=== PATIENT | male | born 1950 | race Caucasian/White ===

== ENCOUNTER 2016-10-19 15:18 | Inpatient (IN) | payer OTHER, MEDICAID ==
[~2016-10-19] VITALS: Ht 177.8 cm; Wt 129.4 kg
--- NOTE | ~2016-10-19 | CON ---
[place], [place] REPORT OF CONSULTATION NAME: [facility]ARTMAN [id number] UNIT #: [id number] ROOM: 403 DOCTOR: ELYSE ROSAS MD BIRTHDATE: [birth year] DOS: 10/20/2016 NEPHROLOGY CONSULTATION REASON FOR CONSULTATION: The patient known to you/chronic kidney disease. HISTORY OF PRESENT ILLNESS: This patient is a 66-year-old male with past medical history of stage 4 chronic kidney disease, coronary artery disease with history of CABG, anemia, diabetes and hypertension. Apparently, he was admitted to the hospital due to his worsening anemia without any mikel bleeding. He denies any history of chest pain, nausea, vomiting or dark stools. His hemoglobin levels have been in the upper 7s-8 range. The patient has known chronic kidney disease and follows with my partner, Dr. Frank, in the office. He reports just having an AV fistula created in his upper extremity a few weeks ago. His baseline creatinine levels have been in the upper 2s-3 range. The patient has had issues with anemia and had seen a infusion nurse in the past. I do not know the details. It seems he had been on Aranesp as well as IV iron, but this was not covered by his insurance as an outpatient and he has not received this in a while. I do not know the details. He currently feels comfortable. He was asking if he was going to receive blood transfusion. I stated that I was not clear. He denied any specific complaints to me. He denied dysuria, hematuria, nausea or vomiting. He states his incision of his fistula seems to be healing well and denies any issues with the fistula in general. ALLERGIES: LISTED TO ATORVASTATIN, GABAPENTIN. HOME MEDICATIONS: Include albuterol, allopurinol, Elavil, Creon, Bumex, carvedilol, vitamin D, colchicine, doxazosin, fenofibrate, iron sulfate, insulin, magnesium, metolazone, potassium, Crestor, Flomax, Spiriva, Coenzyme Q10, vitamin B and Coumadin. PAST MEDICAL HISTORY: 1. Known chronic kidney disease with details as stated above. 2. Recent right upper extremity AV fistula. 3. Coronary artery disease, status post CABG. 4. CHF. 5. Chronic atrial fibrillation. 6. Diabetes with nephropathy and neuropathy. 7. GERD. 8. Gout. 9. Hyperlipidemia. 10. Hypertension. 11. Morbid obesity. 12. History of EGD. 13. Hemorrhoidectomy. 14. Anemia. 15. History of aortic valve replacement. 16. Tonsillectomy and adenoidectomy. 17. Cholecystectomy. [place], [place] REPORT OF CONSULTATION NAME: BRENDAN HARTMAN UNIT #: [id number] ROOM: 403 DOCTOR: ELYSE ROSAS MD BIRTHDATE: [birth year] 18. Colonoscopy with polypectomy. 19. Chronic edema. FAMILY HISTORY: From what I can gather, there was no reported history of chronic kidney disease, otherwise noncontributory. SOCIAL HISTORY: Occasional alcohol was noted. There is previous history of tobacco abuse, but quit in 1988. No history of illicit drugs. He is . REVIEW OF SYSTEMS: As per HPI, otherwise a 10-point review of systems was reviewed and was negative. PHYSICAL EXAMINATION: VITAL SIGNS: Temperature 97.9, pulse 64, respiratory rate 18, blood pressure 171/84. GENERAL: He is awake, alert, resting comfortably, in no acute distress. HEENT: Shows no jugular venous distention. Sclerae are anicteric. Mucous membranes are moist. Pharynx is clear. NECK: Supple. Trachea is midline. There is no neck lymphadenopathy. There is no thyromegaly. LUNGS: Fairly clear. No crackles, wheezing or rales. There is no tactile fremitus. He is not using accessory muscles of respiration. HEART: Normal S1, S2. No rub, thrill or gallop. ABDOMEN: Obese, soft, nontender. There is no organomegaly or rigidity. There is no rebound or guarding. There is no CVA tenderness. EXTREMITIES: Has 1 to 2+ edema. There is no lower extremity lymphadenopathy. Distal pulses are 2+. SKIN: Showed no overt rash. There are no petechiae or purpura. Skin temperature was warm. NEUROLOGIC: He is awake, alert. He is following commands. Cranial nerves were intact. DIAGNOSTIC DATA: BUN 58, creatinine 2.9, sodium 140, potassium 3.8, CO2 of 28, calcium 8.2, phosphorus 3.8, magnesium 2.6, hemoglobin 7.7, white count of 5.8, platelet count of 166. IMPRESSION: 1. Stage 4 chronic kidney disease with a baseline creatinine in the upper 2s-3 range. The patient's renal function is stable and at baseline. He likely has underlying nephrosclerosis and diabetic nephropathy. 2. Anemia, likely of chronic disease. 3. Diabetes mellitus. 4. Hypertension. 5. History of congestive heart failure, chronic edema. 6. Coronary artery disease. PLAN: 1. The patient's home medications should continue. He should continue his normal diuretics and electrolyte replacement. 2. Dose medications for current creatinine clearance. [place], [place] REPORT OF CONSULTATION NAME: BRENDAN HARTMAN UNIT #: [id number] ROOM: 403 DOCTOR: ELYSE ROSAS MD BIRTHDATE: [birth year] 3. Continue to follow labs while in the hospital. 4. In regards to his anemia, transfusions can be made as per the primary service. He should receive a dose of IV diuretics in between blood transfusions. 5. The patient should be on erythropoietin stimulating agents, particularly as an outpatient. Apparently, there had been some insurance coverage issues with the details unclear to me. While he is in the hospital, I will write for one dose of Procrit to be given today. On discharge, he should continue his normal follow up with Dr. Frank as previously scheduled. Thank you for this consultation. ELYSE ROSAS MD CM:CONSTR:REPORT OF CONSULTATION 1411 10/22/16 0950 interface
[~2016-10-19 15:18] MED LIST: ALLOPURINOL100 MG PO; AMARYL4 MG PO; AMITRIPTYLINE10 MG PO; ASPIRIN81 M1 PO; AUGMENTIN 875 M1 TAB PO; B COMPLEX1 EACH PO; BUMETANIDE1 MG PO; BUMETANIDE2 MG PO; BUMEX1 MG PO; CARDOXIN0.25 MG PO; CARDURA2 M1 PO; CARVEDILOL25 MG PO; CO Q-10 ER100 MG PO; COLACE100 MG PO; COLCHICINE0.6 M1 PO; COLCRYS0.6 M1 PO; COREG12.5 MG PO; COUMADIN2 MG PO; COUMADIN3 M1 PO; COUMADIN5 M2 PO; COUMADIN7.5 M1 PO; CREON 60,000U/1 CAP PO; CRESTOR10 M1 PO; CRESTOR40 M1 PO; CYCLOBENZAPRINE10 MG PO; Coumadin5 MG PO; D3-20002000 UNIT PO; FENOFIBRATE145 M1 PO; FENOFIBRATE160 MG PO; FEOSOL300 MG PO; FERROUS SULFAT325 MG PO; FLOMAX0.4 MG PO; FUROSEMIDE40 MG PO; FUROSEMIDE80 MG PO; GABAPENTIN300 M1 PO; GEMCOR600 MG PO; GEMFIBROZIL600 MG PO; GLIMEPIRIDE4 MG PO; HUMALOG100 U/ML SC; HUMALOG100 UNIT/1 SQ; INSULIN-HUMA100 U/ML SC; K-Dur 20MEQ20 MEQ PO; KEFLEX500 MG PO; KLOR-CON 1010 MEQ PO; LANOXIN0.125 MG PO; LANOXIN0.25 MG PO; LANTUS100 U/ML SC; LASIX40 MG PO; LASIX80 MG PO; LEVEMIR FLEX100 U/ML SC; LEVEMIR100 U/ML SC; LISINOPRIL20 MG PO; Lasix80 MG PO; MAGOX 400400 MG PO; METFORMIN500 MG PO; METOCLOPRAMIDE H5 M1 PO; METOLAZONE2.5 MG PO; METOLAZONE5 MG PO; MILK OF MA400 MG/5 M PO; MULTIPLE VITAMI1 CAP PO; MULTIPLE VITAMI1 TA3 PO; NAPROSYN500 MG PO; NORCO 325 MG-51 TAB PO; NORCO 5-325 TA1 EACH PO; NOVOLOG MIX 70/33 ML SQ; NOVOLOG10 ML SQ; OMEGA 3 FISH O1 EACH PO; OMEPRAZOLE DR20 M1 PO; OMEPRAZOLE DR20 MG PO; OXYCODONE5 M1 PO; PARAFON FORTE500 MG PO; PERCOCET 325 MG1 TA2 PO; POLY VI SOL,MUL50 ML PO; POTASSIUM CHLO10 MEQ PO; POTASSIUM CHLOR8 ME1 PO; PRILOSEC20 M1 PO; PRILOSEC20 MG PO; PROVENTIL0.09 MG/A1 INH; Percocet 325 MG1 TAB PO; SIMVASTATIN40 MG PO; SPIRIVA RESPIMAT4 GM IH; SPIRIVA18 MCG PO; TYLENOL325 M1 PO; VITAMIN D22000 UNIT PO; VITAMIN D50000 I3 PO; WARFARIN SOD5 MG PO; WARFARIN SODIUM5 MG PO; ZAROXOLYN2.5 MG PO; ZOCOR40 MG PO; Zaroxolyn,Diul2.5 MG PO; [UNRECOGNIZED DRUG - OTHER] PO
[2016-10-19 15:28] LABS: BILIRUBIN NEGATIVE (NEGATIVE); BLOOD 2+ (NEGATIVE); CLARITY SL CLOUDY (CLEAR); COLOR YELLOW (YELLOW); GLUCOSE TRACE (NEGATIVE); KETONE NEGATIVE (NEGATIVE); LEUKO ESTERASE NEGATIVE (NEGATIVE); NITRITE NEGATIVE (NEGATIVE); PROTEIN 3+ (NEGATIVE); UROBILINOGEN 0.2 E.U./dl (0.2-1.0)
[2016-10-19 15:29] LABS: BASO % 0.5 % (0.0-1.0); EOS # 0.1 10*3/uL (0.0-0.4); HEMATOCRIT 26.1 % (42.0-52.0); HEMOGLOBIN 7.9 g/dl (14.0-18.0); LYMPH # 0.4 10*3/uL (1.3-4.4); LYMPH % 5.8 % (27.0-41.0); MEAN CORPUSCULAR HGB 27.2 pg (27.0-31.0); MEAN CORPUSCULAR HGB CONC 30.3 g/dl (33.0-37.0); MEAN PLATELET VOLUME 9.1 fl (9.6-12.3); MONO # 0.7 10*3/uL (0.1-1.0); MONO % 10.7 % (3.0-9.0); NEUT # 5.1 10*3/uL (2.3-7.9); NEUT % 81.4 % (47.0-73.0); PLATELET COUNT AUTOMATED 187 10*3/uL (130-400); RED CELL DISTRI WIDTH 18.2 % (0-14.5); WHITE BLOOD COUNT 6.3 10*3/uL (4.8-10.8)
[2016-10-19 15:43] LABS: URINE TP/CRE RATIO 3.1 (<0.21)
[2016-10-19 15:50] LABS: MUCOUS 1+; URINE REFLEX COMMENT YES (NO); WBC 0-2 wbc/hpf (0-5)
[2016-10-19 15:55] LABS: ALBUMIN 2.8 gm/dl (3.1-4.5); MAGNESIUM 2.8 mg/dL (1.5-2.1); PHOSPHOROUS 3.3 mg/dL (2.5-4.9); POTASSIUM 4.5 mmol/L (3.5-5.1)
[2016-10-19 16:00] LABS: URIC ACID 8.5 mg/dL (3.5-7.2)
[2016-10-19 16:19] LABS: IRF 28.5 % (2.4-13.3); RET-He 28.2 pg (32.1-37.9); RETICULOCYTE % 3.26 % (0.50-2.50)
[2016-10-19 16:29] LABS: IRON 42 ug/dL (65-175); IRON SATURATION 10 %; UIBC 342 ug/dL (110-410)
[2016-10-19 16:58] LABS: FERRITIN 356.8 ng/mL (22.0-322.0)
[2016-10-19 17:07] LABS: FOLIC ACID > 24.00 ng/mL (>5.38)
[2016-10-19 18:24] LABS: CKMB 2.3 ng/ml (0.5-3.6); TROPONIN I 0.029 ng/ml (<0.045)
[2016-10-19 18:24] LABS: INTERNATIONAL NORM RATIO 2.6 (2.0-3.5); PROTHROMBIN TIME 29.6 SECONDS (9.0-12.4)
[2016-10-20 00:41] LABS: HEMATOCRIT 28.1 % (42.0-52.0); HEMOGLOBIN 8.7 g/dl (14.0-18.0)
[2016-10-20 00:59] LABS: CKMB 2.5 ng/ml (0.5-3.6); TROPONIN I 0.026 ng/ml (<0.045)
[2016-10-20 06:03] LABS: BASO % 0.7 % (0.0-1.0); EOS # 0.1 10*3/uL (0.0-0.4); EOS % 2.2 % (1.0-4.0); HEMATOCRIT 25.3 % (42.0-52.0); HEMOGLOBIN 7.7 g/dl (14.0-18.0); IG # 0.1 10*3/uL (0.0-0.1); LYMPH # 0.5 10*3/uL (1.3-4.4); LYMPH % 9.1 % (27.0-41.0); MEAN CELL VOLUME 87.8 fl (80.0-94.0); MEAN CORPUSCULAR HGB 26.7 pg (27.0-31.0); MEAN CORPUSCULAR HGB CONC 30.4 g/dl (33.0-37.0); MEAN PLATELET VOLUME 9.5 fl (9.6-12.3); MONO # 0.8 10*3/uL (0.1-1.0); MONO % 13.8 % (3.0-9.0); NEUT # 4.3 10*3/uL (2.3-7.9); NEUT % 73.3 % (47.0-73.0); PLATELET COUNT AUTOMATED 166 10*3/uL (130-400); RED BLOOD COUNT 2.88 10*6/uL (4.50-5.90); RED CELL DISTRI WIDTH 18.6 % (0-14.5); WHITE BLOOD COUNT 5.8 10*3/uL (4.8-10.8)
[2016-10-20 06:13] LABS: CKMB 2.6 ng/ml (0.5-3.6); TROPONIN I 0.024 ng/ml (<0.045)
[2016-10-20 06:29] LABS: ALBUMIN 2.4 gm/dl (3.1-4.5); BILIRUBIN, TOTAL 0.3 mg/dl (0.2-1.0); FREE T4 1.03 ng/dl (0.76-1.46); MAGNESIUM 2.6 mg/dL (1.5-2.1); PHOSPHOROUS 3.8 mg/dL (2.5-4.9); POTASSIUM 3.8 mmol/L (3.5-5.1); TOTAL PROTEIN 6.9 gm/dL (6.4-8.2)
[2016-10-20 06:33] LABS: INTERNATIONAL NORM RATIO 2.2 (2.0-3.5); PROTHROMBIN TIME 24.8 SECONDS (9.0-12.4)
[2016-10-20 06:34] LABS: THYROID STIM HORMONE (HS) 3.51 uIU/ml (0.358-4.75)
[2016-10-20 06:51] LABS: VITAMIN D, 25-HYDROXY 23.4 ng/mL (30-100)
[2016-10-20 06:52] LABS: FOLIC ACID > 24.00 ng/mL (>5.38)
[2016-10-21 06:14] LABS: BASO % 0.5 % (0.0-1.0); EOS # 0.1 10*3/uL (0.0-0.4); EOS % 2.5 % (1.0-4.0); HEMATOCRIT 29.2 % (42.0-52.0); HEMOGLOBIN 8.9 g/dl (14.0-18.0); IG # 0.1 10*3/uL (0.0-0.1); LYMPH # 0.4 10*3/uL (1.3-4.4); LYMPH % 7.7 % (27.0-41.0); MEAN CELL VOLUME 86.6 fl (80.0-94.0); MEAN CORPUSCULAR HGB 26.4 pg (27.0-31.0); MEAN CORPUSCULAR HGB CONC 30.5 g/dl (33.0-37.0); MEAN PLATELET VOLUME 9.9 fl (9.6-12.3); MONO # 0.7 10*3/uL (0.1-1.0); MONO % 12.5 % (3.0-9.0); NEUT # 4.2 10*3/uL (2.3-7.9); NEUT % 75.5 % (47.0-73.0); PLATELET COUNT AUTOMATED 182 10*3/uL (130-400); RED BLOOD COUNT 3.37 10*6/uL (4.50-5.90); RED CELL DISTRI WIDTH 18.1 % (0-14.5); WHITE BLOOD COUNT 5.6 10*3/uL (4.8-10.8)
[2016-10-21 06:39] LABS: PROTHROMBIN TIME 21.9 SECONDS (9.0-12.4)
[2016-10-21 06:40] LABS: POTASSIUM 3.7 mmol/L (3.5-5.1)
== END 2016-10-21 13:47 | disposition home or self-care (01) | DRG 682 ==
LOC: EDSTATUS 15:18 → ED 15:19 → EDHOLD 16:40 → 4E 16:40
PROVIDERS: Emergency Medicine; Hospitalist; Internal Medicine; Internal Medicine Nephrology
PROC: 30233N1 Transfusion of Nonautologous Red Blood Cells into Peripheral Vein, Percutaneous Approach (ICD-10-PCS; principal; 2016-10-19)
DX: N17.0 Acute kidney failure with tubular necrosis (principal); E43 Unspecified severe protein-calorie malnutrition; D68.59 Other primary thrombophilia; E11.22 Type 2 diabetes mellitus with diabetic chronic kidney disease; E11.42 Type 2 diabetes mellitus with diabetic polyneuropathy; I50.9 Heart failure, unspecified; I13.0 Hypertensive heart and chronic kidney disease with heart failure and stage 1 through stage 4 chronic kidney disease, or unspecified chronic kidney disease; I25.810 Atherosclerosis of coronary artery bypass graft(s) without angina pectoris; Z68.41 Body mass index [BMI] 40.0-44.9, adult; D50.0 Iron deficiency anemia secondary to blood loss (chronic); N18.4 Chronic kidney disease, stage 4 (severe); E83.41 Hypermagnesemia; E66.01 Morbid (severe) obesity due to excess calories; N40.0 Benign prostatic hyperplasia without lower urinary tract symptoms; K21.9 Gastro-esophageal reflux disease without esophagitis; E11.65 Type 2 diabetes mellitus with hyperglycemia; E78.5 Hyperlipidemia, unspecified; D63.8 Anemia in other chronic diseases classified elsewhere; R00.1 Bradycardia, unspecified; Z90.49 Acquired absence of other specified parts of digestive tract; Z87.891 Personal history of nicotine dependence; Z80.42 Family history of malignant neoplasm of prostate; Z79.01 Long term (current) use of anticoagulants; Z82.49 Family history of ischemic heart disease and other diseases of the circulatory system; Z84.89 Family history of other specified conditions; Z88.8 Allergy status to other drugs, medicaments and biological substances; Z91.048 Other nonmedicinal substance allergy status; Z79.51 Long term (current) use of inhaled steroids; Z79.899 Other long term (current) drug therapy; Z79.4 Long term (current) use of insulin; Z95.1 Presence of aortocoronary bypass graft; Z95.2 Presence of prosthetic heart valve

== ENCOUNTER 2016-11-20 13:56 | Inpatient (IN) | payer OTHER, MEDICAID ==
[~2016-11-20] VITALS: Ht 177.8 cm; Wt 129.3 kg
[2016-11-20] VITALS (9 sets, daily range): BP systolic 127–157; BP diastolic 47–62
[2016-11-20 15:26] LABS: BASO % 0.3 % (0.0-1.0); EOS # 0.1 10*3/uL (0.0-0.4); EOS % 1.2 % (1.0-4.0); HEMATOCRIT 23.9 % (42.0-52.0); HEMOGLOBIN 7.3 g/dl (14.0-18.0); IG # 0.1 10*3/uL (0.0-0.1); LYMPH # 0.3 10*3/uL (1.3-4.4); LYMPH % 4.9 % (27.0-41.0); MEAN CELL VOLUME 90.2 fl (80.0-94.0); MEAN CORPUSCULAR HGB 27.5 pg (27.0-31.0); MEAN CORPUSCULAR HGB CONC 30.5 g/dl (33.0-37.0); MEAN PLATELET VOLUME 9.4 fl (9.6-12.3); MONO # 0.7 10*3/uL (0.1-1.0); MONO % 9.7 % (3.0-9.0); NEUT # 5.7 10*3/uL (2.3-7.9); NEUT % 82.4 % (47.0-73.0); PLATELET COUNT AUTOMATED 175 10*3/uL (130-400); RED BLOOD COUNT 2.65 10*6/uL (4.50-5.90); RED CELL DISTRI WIDTH 18.3 % (0-14.5); WHITE BLOOD COUNT 6.9 10*3/uL (4.8-10.8)
[2016-11-20 15:40] LABS: ALBUMIN 2.6 gm/dl (3.1-4.5); BILIRUBIN, TOTAL 0.4 mg/dl (0.2-1.0); POTASSIUM 4.8 mmol/L (3.5-5.1); TOTAL PROTEIN 7.5 gm/dL (6.4-8.2)
[2016-11-20 16:06] LABS: INTERNATIONAL NORM RATIO 1.7 (2.0-3.5); PROTHROMBIN TIME 18.6 SECONDS (9.0-12.4)
[2016-11-20] MEDS ORDERED: COUMADIN4 M2 PO (22:51)
[2016-11-20] MEDS ORDERED: Coumadin3 MG PO (22:51)
[2016-11-21] VITALS: BP 153/57
[2016-11-21 01:55] VITALS: BP 128/48
[2016-11-21 06:40] LABS: BASO % 0.4 % (0.0-1.0); EOS # 0.1 10*3/uL (0.0-0.4); EOS % 1.6 % (1.0-4.0); IG # 0.1 10*3/uL (0.0-0.1); LYMPH # 0.4 10*3/uL (1.3-4.4); LYMPH % 5.8 % (27.0-41.0); MEAN CELL VOLUME 88.4 fl (80.0-94.0); MEAN CORPUSCULAR HGB 27.2 pg (27.0-31.0); MEAN CORPUSCULAR HGB CONC 30.8 g/dl (33.0-37.0); MEAN PLATELET VOLUME 9.8 fl (9.6-12.3); MONO # 0.9 10*3/uL (0.1-1.0); MONO % 12.7 % (3.0-9.0); NEUT # 5.3 10*3/uL (2.3-7.9); NEUT % 78.5 % (47.0-73.0); PLATELET COUNT AUTOMATED 165 10*3/uL (130-400); RED BLOOD COUNT 2.94 10*6/uL (4.50-5.90); RED CELL DISTRI WIDTH 18.7 % (0-14.5); WHITE BLOOD COUNT 6.7 10*3/uL (4.8-10.8)
[2016-11-21 07:06] LABS: MAGNESIUM 2.6 mg/dL (1.5-2.1); PHOSPHOROUS 3.9 mg/dL (2.5-4.9); POTASSIUM 3.9 mmol/L (3.5-5.1)
[2016-11-21 07:07] LABS: INTERNATIONAL NORM RATIO 1.7 (2.0-3.5); PROTHROMBIN TIME 18.7 SECONDS (9.0-12.4)
[2016-11-21 08:00] VITALS: BP 142/62
[2016-11-21 12:00] VITALS: BP 140/68
== END 2016-11-21 14:44 | disposition home or self-care (01) | DRG 291 ==
LOC: ED 13:56 → 4E 17:33 → EDHOLD 17:33 → 4E 17:50
PROVIDERS: Internal Medicine; Registered Nurse
PROC: 30233N1 Transfusion of Nonautologous Red Blood Cells into Peripheral Vein, Percutaneous Approach (ICD-10-PCS; principal; 2016-11-20)
DX: I13.0 Hypertensive heart and chronic kidney disease with heart failure and stage 1 through stage 4 chronic kidney disease, or unspecified chronic kidney disease (principal); N17.0 Acute kidney failure with tubular necrosis; E43 Unspecified severe protein-calorie malnutrition; I48.2 Chronic atrial fibrillation; E11.22 Type 2 diabetes mellitus with diabetic chronic kidney disease; E11.40 Type 2 diabetes mellitus with diabetic neuropathy, unspecified; Z95.4 Presence of other heart-valve replacement; I50.32 Chronic diastolic (congestive) heart failure; Z68.41 Body mass index [BMI] 40.0-44.9, adult; D63.8 Anemia in other chronic diseases classified elsewhere; N18.9 Chronic kidney disease, unspecified; E78.5 Hyperlipidemia, unspecified; I25.10 Atherosclerotic heart disease of native coronary artery without angina pectoris; E11.65 Type 2 diabetes mellitus with hyperglycemia; N40.0 Benign prostatic hyperplasia without lower urinary tract symptoms; K21.9 Gastro-esophageal reflux disease without esophagitis; E66.01 Morbid (severe) obesity due to excess calories; M10.9 Gout, unspecified; Z90.49 Acquired absence of other specified parts of digestive tract; Z87.891 Personal history of nicotine dependence; Z80.42 Family history of malignant neoplasm of prostate; Z82.49 Family history of ischemic heart disease and other diseases of the circulatory system; Z84.89 Family history of other specified conditions; Z91.048 Other nonmedicinal substance allergy status; Z88.8 Allergy status to other drugs, medicaments and biological substances; Z79.899 Other long term (current) drug therapy; Z79.4 Long term (current) use of insulin

== ENCOUNTER → 2016-11-29 | Outpatient (CLI) | payer OTHER, MEDICAID ==
[~2016-11-29] MED LIST changes: +COUMADIN4 M2 PO; +Coumadin3 MG PO
[2016-11-29 15:18] LABS: BASO % 0.6 % (0.0-1.0); BILIRUBIN NEGATIVE (NEGATIVE); BLOOD 1+ (NEGATIVE); CLARITY CLEAR (CLEAR); COLOR YELLOW (YELLOW); EOS # 0.1 10*3/uL (0.0-0.4); EOS % 1.5 % (1.0-4.0); GLUCOSE TRACE (NEGATIVE); HEMATOCRIT 28.7 % (42.0-52.0); HEMOGLOBIN 8.5 g/dl (14.0-18.0); IG # 0.1 10*3/uL (0.0-0.1); KETONE NEGATIVE (NEGATIVE); LEUKO ESTERASE NEGATIVE (NEGATIVE); LYMPH # 0.4 10*3/uL (1.3-4.4); LYMPH % 8.4 % (27.0-41.0); MEAN CELL VOLUME 89.1 fl (80.0-94.0); MEAN CORPUSCULAR HGB 26.4 pg (27.0-31.0); MEAN CORPUSCULAR HGB CONC 29.6 g/dl (33.0-37.0); MEAN PLATELET VOLUME 9.4 fl (9.6-12.3); MONO # 0.7 10*3/uL (0.1-1.0); MONO % 13.4 % (3.0-9.0); NEUT # 3.9 10*3/uL (2.3-7.9); NEUT % 74.8 % (47.0-73.0); NITRITE NEGATIVE (NEGATIVE); PH 5.5 (5.0-9.0); PLATELET COUNT AUTOMATED 175 10*3/uL (130-400); PROTEIN 2+ (NEGATIVE); RED BLOOD COUNT 3.22 10*6/uL (4.50-5.90); RED CELL DISTRI WIDTH 18.2 % (0-14.5); SPECIFIC GRAVITY 1.015 (1.005-1.030); UROBILINOGEN 0.2 E.U./dl (0.2-1.0); WHITE BLOOD COUNT 5.2 10*3/uL (4.8-10.8)
[2016-11-29 15:26] LABS: URINE TP/CRE RATIO 4.1 (<0.21)
[2016-11-29 15:41] LABS: BACTERIA 2+; URINE REFLEX COMMENT YES (NO)
[2016-11-29 15:42] LABS: ALBUMIN 2.8 gm/dl (3.1-4.5); MAGNESIUM 2.7 mg/dL (1.5-2.1); POTASSIUM 4.5 mmol/L (3.5-5.1); URIC ACID 9.3 mg/dL (3.5-7.2)
== END | disposition home or self-care (01) ==
LOC: LAB 14:40
PROVIDERS: Internal Medicine Nephrology
DX: N18.4 Chronic kidney disease, stage 4 (severe) (principal); D63.1 Anemia in chronic kidney disease; Z79.899 Other long term (current) drug therapy

== ENCOUNTER 2016-12-11 14:14 | Inpatient (IN) | payer OTHER, MEDICAID ==
[2016-12-11] VITALS (12 sets, daily range): BP systolic 125–160; BP diastolic 45–81
[~2016-12-11] VITALS: Ht 177.8 cm; Wt 129.4 kg
--- NOTE | ~2016-12-11 | EKG ---
[place], [place] ELECTROCARDIOGRAM REPORT NAME: BRENDAN HARTMAN UNIT #: [id number] ROOM: 411 DOCTOR: MAYA EMERY MD BIRTHDATE: [birth year] DOS: 12/11/2016 TIME: 14:52 Normal sinus rhythm at rate 68 with first-degree AV block, probable left atrial enlargement, right bundle-branch block, poor precordial R-wave progression, abnormal electrocardiogram. MAYA EMERY MD CM:EKGRPT:ELECTROCARDIOGRAM REPORT [id number] MAYA EMERY MD
[2016-12-11 15:03] LABS: BASO % 0.3 % (0.0-1.0); EOS # 0.1 10*3/uL (0.0-0.4); EOS % 0.9 % (1.0-4.0); HEMATOCRIT 25.3 % (42.0-52.0); HEMOGLOBIN 7.5 g/dl (14.0-18.0); IG # 0.2 10*3/uL (0.0-0.1); IRF 28.2 % (2.4-13.3); LYMPH # 0.4 10*3/uL (1.3-4.4); LYMPH % 5.5 % (27.0-41.0); MEAN CORPUSCULAR HGB 27.6 pg (27.0-31.0); MEAN CORPUSCULAR HGB CONC 29.6 g/dl (33.0-37.0); MEAN PLATELET VOLUME 8.9 fl (9.6-12.3); MONO # 0.7 10*3/uL (0.1-1.0); MONO % 11.2 % (3.0-9.0); NEUT # 5.2 10*3/uL (2.3-7.9); NEUT % 79.8 % (47.0-73.0); NUCLEATED RED BLOOD CELL 0.5 % (0.0-0.0); PLATELET COUNT AUTOMATED 197 10*3/uL (130-400); RED BLOOD COUNT 2.72 10*6/uL (4.50-5.90); RED CELL DISTRI WIDTH 19.1 % (0-14.5); RET-He 28.1 pg (32.1-37.9); RETICULOCYTE % 3.67 % (0.50-2.50); WHITE BLOOD COUNT 6.5 10*3/uL (4.8-10.8)
[2016-12-11 15:11] LABS: INTERNATIONAL NORM RATIO 1.5 (2.0-3.5); PROTHROMBIN TIME 15.9 SECONDS (9.0-12.4)
[2016-12-11 15:21] LABS: ALBUMIN 2.6 gm/dl (3.1-4.5); BILIRUBIN, TOTAL 0.4 mg/dl (0.2-1.0); C-REACTIVE PROTEIN 5.56 MG/DL (0-0.3); MAGNESIUM 2.8 mg/dL (1.5-2.1); TOTAL PROTEIN 7.8 gm/dL (6.4-8.2)
[2016-12-11 15:22] LABS: CKMB 2.5 ng/ml (0.5-3.6); TROPONIN I 0.028 ng/ml (<0.045)
[2016-12-11 16:28] LABS: FERRITIN 460.5 ng/mL (22.0-322.0)
[2016-12-11 16:48] LABS: FOLIC ACID > 24.00 ng/mL (>5.38)
[2016-12-11] MEDS ORDERED: PROVENTIL0.09 MG/A1 INH (17:55)
[2016-12-11] MEDS ORDERED: METOCLOPRAMIDE5 MG PO (18:02)
[2016-12-11] MEDS ORDERED: HUMALOG KW200 UNIT/1 SQ (18:12)
[2016-12-12] VITALS (17 sets, daily range): BP systolic 111–152; BP diastolic 50–80
[2016-12-12 01:14] LABS: CKMB 2.9 ng/ml (0.5-3.6); TROPONIN I 0.018 ng/ml (<0.045)
[2016-12-12 06:20] LABS: BASO % 0.6 % (0.0-1.0); EOS # 0.1 10*3/uL (0.0-0.4); EOS % 2.1 % (1.0-4.0); HEMATOCRIT 25.8 % (42.0-52.0); HEMOGLOBIN 7.9 g/dl (14.0-18.0); IG # 0.1 10*3/uL (0.0-0.1); LYMPH # 0.4 10*3/uL (1.3-4.4); LYMPH % 7.6 % (27.0-41.0); MEAN CELL VOLUME 90.5 fl (80.0-94.0); MEAN CORPUSCULAR HGB 27.7 pg (27.0-31.0); MEAN CORPUSCULAR HGB CONC 30.6 g/dl (33.0-37.0); MONO # 0.8 10*3/uL (0.1-1.0); MONO % 14.9 % (3.0-9.0); NEUT # 3.7 10*3/uL (2.3-7.9); NEUT % 72.1 % (47.0-73.0); NUCLEATED RED BLOOD CELL 0.6 % (0.0-0.0); PLATELET COUNT AUTOMATED 161 10*3/uL (130-400); RED BLOOD COUNT 2.85 10*6/uL (4.50-5.90); RED CELL DISTRI WIDTH 18.2 % (0-14.5); WHITE BLOOD COUNT 5.2 10*3/uL (4.8-10.8)
[2016-12-12 06:28] LABS: TROPONIN I 0.019 ng/ml (<0.045)
[2016-12-12 06:46] LABS: MAGNESIUM 2.9 mg/dL (1.5-2.1); POTASSIUM 4.4 mmol/L (3.5-5.1)
[2016-12-12 06:48] LABS: INTERNATIONAL NORM RATIO 1.5 (2.0-3.5); PROTHROMBIN TIME 16.4 SECONDS (9.0-12.4)
[2016-12-12 06:57] LABS: FREE T4 1.07 ng/dl (0.76-1.46); PHOSPHOROUS 4.9 mg/dL (2.5-4.9); THYROID STIM HORMONE (HS) 3.05 uIU/ml (0.358-4.75)
[2016-12-13] VITALS: BP 130/65
[2016-12-13 06:14] LABS: BASO % 0.7 % (0.0-1.0); EOS # 0.2 10*3/uL (0.0-0.4); EOS % 3.8 % (1.0-4.0); HEMATOCRIT 29.2 % (42.0-52.0); IG # 0.1 10*3/uL (0.0-0.1); LYMPH # 0.4 10*3/uL (1.3-4.4); MEAN CELL VOLUME 91.3 fl (80.0-94.0); MEAN CORPUSCULAR HGB 28.1 pg (27.0-31.0); MEAN CORPUSCULAR HGB CONC 30.8 g/dl (33.0-37.0); MEAN PLATELET VOLUME 9.4 fl (9.6-12.3); MONO # 0.8 10*3/uL (0.1-1.0); MONO % 14.1 % (3.0-9.0); NEUT # 4.3 10*3/uL (2.3-7.9); NEUT % 73.5 % (47.0-73.0); PLATELET COUNT AUTOMATED 157 10*3/uL (130-400); RED CELL DISTRI WIDTH 17.3 % (0-14.5); WHITE BLOOD COUNT 5.8 10*3/uL (4.8-10.8)
[2016-12-13 06:20] LABS: PROTHROMBIN TIME 21.6 SECONDS (9.0-12.4)
[2016-12-13 06:25] LABS: POTASSIUM 4.1 mmol/L (3.5-5.1)
[2016-12-13 08:00] VITALS: BP 161/59
[2016-12-13 12:00] VITALS: BP 160/61
== END 2016-12-13 15:19 | disposition home or self-care (01) | DRG 811 ==
LOC: ED 14:14 → EDHOLD 15:56 → 4E 15:56
PROVIDERS: Emergency Medicine; Internal Medicine
PROC: 30233N1 Transfusion of Nonautologous Red Blood Cells into Peripheral Vein, Percutaneous Approach (ICD-10-PCS; principal; 2016-12-11)
DX: D63.8 Anemia in other chronic diseases classified elsewhere (principal); N17.0 Acute kidney failure with tubular necrosis; E43 Unspecified severe protein-calorie malnutrition; I48.2 Chronic atrial fibrillation; E11.22 Type 2 diabetes mellitus with diabetic chronic kidney disease; I13.0 Hypertensive heart and chronic kidney disease with heart failure and stage 1 through stage 4 chronic kidney disease, or unspecified chronic kidney disease; E11.42 Type 2 diabetes mellitus with diabetic polyneuropathy; I50.42 Chronic combined systolic (congestive) and diastolic (congestive) heart failure; Z68.41 Body mass index [BMI] 40.0-44.9, adult; N18.4 Chronic kidney disease, stage 4 (severe); E78.00 Pure hypercholesterolemia, unspecified; N40.0 Benign prostatic hyperplasia without lower urinary tract symptoms; K21.9 Gastro-esophageal reflux disease without esophagitis; E66.01 Morbid (severe) obesity due to excess calories; E11.65 Type 2 diabetes mellitus with hyperglycemia; M1A.9XX0 Chronic gout, unspecified, without tophus (tophi); E55.9 Vitamin D deficiency, unspecified; E78.2 Mixed hyperlipidemia; Z79.01 Long term (current) use of anticoagulants; Z79.4 Long term (current) use of insulin; Z79.899 Other long term (current) drug therapy; Z95.2 Presence of prosthetic heart valve; Z88.8 Allergy status to other drugs, medicaments and biological substances; Z91.048 Other nonmedicinal substance allergy status; Z90.49 Acquired absence of other specified parts of digestive tract; Z87.891 Personal history of nicotine dependence; Z80.42 Family history of malignant neoplasm of prostate; Z83.3 Family history of diabetes mellitus; Z82.49 Family history of ischemic heart disease and other diseases of the circulatory system; Z82.69 Family history of other diseases of the musculoskeletal system and connective tissue

== ENCOUNTER → 2016-12-24 | Outpatient (CLI) | payer OTHER, MEDICAID ==
[~2016-12-24] MED LIST changes: +HUMALOG KW200 UNIT/1 SQ; +METOCLOPRAMIDE5 MG PO
[2016-12-24 16:06] LABS: BASO % 0.4 % (0.0-1.0); EOS # 0.1 10*3/uL (0.0-0.4); EOS % 1.4 % (1.0-4.0); HEMATOCRIT 25.3 % (42.0-52.0); HEMOGLOBIN 7.6 g/dl (14.0-18.0); IG # 0.1 10*3/uL (0.0-0.1); LYMPH # 0.4 10*3/uL (1.3-4.4); LYMPH % 7.8 % (27.0-41.0); MEAN CELL VOLUME 94.1 fl (80.0-94.0); MEAN CORPUSCULAR HGB 28.3 pg (27.0-31.0); MEAN PLATELET VOLUME 10.5 fl (9.6-12.3); MONO # 0.5 10*3/uL (0.1-1.0); MONO % 10.7 % (3.0-9.0); NEUT # 3.8 10*3/uL (2.3-7.9); NEUT % 78.1 % (47.0-73.0); PLATELET COUNT AUTOMATED 148 10*3/uL (130-400); RED BLOOD COUNT 2.69 10*6/uL (4.50-5.90); RED CELL DISTRI WIDTH 17.3 % (0-14.5); WHITE BLOOD COUNT 4.9 10*3/uL (4.8-10.8)
[2016-12-24 16:06] LABS: BILIRUBIN NEGATIVE (NEGATIVE); BLOOD 1+ (NEGATIVE); CLARITY SL CLOUDY (CLEAR); COLOR YELLOW (YELLOW); GLUCOSE TRACE (NEGATIVE); KETONE NEGATIVE (NEGATIVE); LEUKO ESTERASE NEGATIVE (NEGATIVE); NITRITE NEGATIVE (NEGATIVE); PROTEIN 2+ (NEGATIVE); UROBILINOGEN 0.2 E.U./dl (0.2-1.0)
[2016-12-24 16:11] LABS: BACTERIA 2+; EPITHELIAL CELLS 0-2; URINE REFLEX COMMENT YES (NO); WBC 0-2 wbc/hpf (0-5)
[2016-12-24 16:13] LABS: URINE TP/CRE RATIO 3.2 (<0.21)
[2016-12-24 16:29] LABS: ALBUMIN 2.5 gm/dl (3.1-4.5); MAGNESIUM 2.4 mg/dL (1.5-2.1); POTASSIUM 4.7 mmol/L (3.5-5.1); URIC ACID 10.7 mg/dL (3.5-7.2)
== END | disposition home or self-care (01) ==
LOC: LAB 15:04
PROVIDERS: Internal Medicine Nephrology
DX: N18.9 Chronic kidney disease, unspecified (principal); Z79.899 Other long term (current) drug therapy

== ENCOUNTER → 2017-01-18 | Outpatient (CLI) | payer OTHER, MEDICAID | END | disposition home or self-care (01) | LOC: RAD 13:07 | DX: M25.512 Pain in left shoulder (principal) ==

== ENCOUNTER → 2017-01-19 | Outpatient (CLI) | payer OTHER, MEDICAID ==
[2017-01-19 17:55] LABS: BASO % 0.2 % (0.0-1.0); EOS % 0.2 % (1.0-4.0); HEMATOCRIT 27.7 % (42.0-52.0); HEMOGLOBIN 8.4 g/dl (14.0-18.0); LYMPH # 0.2 10*3/uL (1.3-4.4); MEAN CELL VOLUME 96.9 fl (80.0-94.0); MEAN CORPUSCULAR HGB 29.4 pg (27.0-31.0); MEAN CORPUSCULAR HGB CONC 30.3 g/dl (33.0-37.0); MEAN PLATELET VOLUME 9.7 fl (9.6-12.3); MONO # 0.6 10*3/uL (0.1-1.0); MONO % 11.6 % (3.0-9.0); NEUT # 4.5 10*3/uL (2.3-7.9); NEUT % 83.3 % (47.0-73.0); PLATELET COUNT AUTOMATED 114 10*3/uL (130-400); RED BLOOD COUNT 2.86 10*6/uL (4.50-5.90); WHITE BLOOD COUNT 5.4 10*3/uL (4.8-10.8)
[2017-01-19 17:56] LABS: BILIRUBIN NEGATIVE (NEGATIVE); BLOOD 2+ (NEGATIVE); CLARITY CLEAR (CLEAR); COLOR YELLOW (YELLOW); GLUCOSE TRACE (NEGATIVE); KETONE NEGATIVE (NEGATIVE); LEUKO ESTERASE NEGATIVE (NEGATIVE); NITRITE NEGATIVE (NEGATIVE); PROTEIN 3+ (NEGATIVE); UROBILINOGEN 0.2 E.U./dl (0.2-1.0)
[2017-01-19 18:05] LABS: URINE TP/CRE RATIO 3.7 (<0.21)
[2017-01-19 18:08] LABS: ALBUMIN 2.9 gm/dl (3.1-4.5); MAGNESIUM 2.9 mg/dL (1.5-2.1); PHOSPHOROUS 3.5 mg/dL (2.5-4.9); POTASSIUM 4.8 mmol/L (3.5-5.1); URIC ACID 10.3 mg/dL (3.5-7.2)
[2017-01-19 18:12] LABS: URINE REFLEX COMMENT YES (NO)
[2017-01-19 18:13] LABS: BACTERIA TRACE
== END | disposition home or self-care (01) ==
LOC: LAB 17:21
PROVIDERS: Family Medicine
DX: N18.4 Chronic kidney disease, stage 4 (severe) (principal); D63.1 Anemia in chronic kidney disease; M25.512 Pain in left shoulder; M10.9 Gout, unspecified; Z79.899 Other long term (current) drug therapy

== ENCOUNTER 2017-02-22 18:11 | Inpatient (IN) | payer OTHER, MEDICAID ==
[~2017-02-22] VITALS: Ht 177.8 cm; Wt 129.8 kg
[2017-02-22 18:17] VITALS: BP 139/56
[2017-02-22 18:38] LABS: BASO % 0.2 % (0.0-1.0); EOS # 0.1 10*3/uL (0.0-0.4); EOS % 2.2 % (1.0-4.0); HEMATOCRIT 26.1 % (42.0-52.0); HEMOGLOBIN 8.1 g/dl (14.0-18.0); IG # 0.1 10*3/uL (0.0-0.1); LYMPH # 0.3 10*3/uL (1.3-4.4); LYMPH % 7.9 % (27.0-41.0); MEAN CELL VOLUME 90.3 fl (80.0-94.0); MEAN PLATELET VOLUME 9.3 fl (9.6-12.3); MONO # 0.4 10*3/uL (0.1-1.0); MONO % 9.1 % (3.0-9.0); NEUT # 3.3 10*3/uL (2.3-7.9); NEUT % 78.9 % (47.0-73.0); PLATELET COUNT AUTOMATED 192 10*3/uL (130-400); RED BLOOD COUNT 2.89 10*6/uL (4.50-5.90); WHITE BLOOD COUNT 4.2 10*3/uL (4.8-10.8)
[2017-02-22 18:52] LABS: INTERNATIONAL NORM RATIO 4.3 (2.0-3.5); PROTHROMBIN TIME 50.4 SECONDS (9.0-12.4)
[2017-02-22 18:54] LABS: ALBUMIN 2.3 gm/dl (3.1-4.5); BILIRUBIN, TOTAL 0.2 mg/dl (0.2-1.0); MAGNESIUM 2.4 mg/dL (1.5-2.1); TOTAL PROTEIN 7.3 gm/dL (6.4-8.2)
[2017-02-22 18:55] LABS: TROPONIN I 0.032 ng/ml (<0.045)
[2017-02-22 19:36] VITALS: BP 176/64
[2017-02-22 20:00] VITALS: BP 140/41
[2017-02-23] VITALS: BP 136/44
[2017-02-23 06:46] LABS: BASO % 0.2 % (0.0-1.0); EOS # 0.1 10*3/uL (0.0-0.4); EOS % 2.8 % (1.0-4.0); HEMATOCRIT 25.2 % (42.0-52.0); HEMOGLOBIN 7.6 g/dl (14.0-18.0); IG # 0.1 10*3/uL (0.0-0.1); LYMPH # 0.5 10*3/uL (1.3-4.4); LYMPH % 10.9 % (27.0-41.0); MEAN CELL VOLUME 91.3 fl (80.0-94.0); MEAN CORPUSCULAR HGB 27.5 pg (27.0-31.0); MEAN CORPUSCULAR HGB CONC 30.2 g/dl (33.0-37.0); MEAN PLATELET VOLUME 9.5 fl (9.6-12.3); MONO # 0.5 10*3/uL (0.1-1.0); MONO % 11.1 % (3.0-9.0); NEUT # 3.1 10*3/uL (2.3-7.9); NEUT % 73.3 % (47.0-73.0); PLATELET COUNT AUTOMATED 171 10*3/uL (130-400); RED BLOOD COUNT 2.76 10*6/uL (4.50-5.90); RED CELL DISTRI WIDTH 16.3 % (0-14.5); WHITE BLOOD COUNT 4.2 10*3/uL (4.8-10.8)
[2017-02-23 07:02] LABS: HEMOGLOBIN A1c 8.2 % (4.8-5.6)
[2017-02-23 07:21] LABS: FREE T4 1.18 ng/dl (0.76-1.46); MAGNESIUM 2.4 mg/dL (1.5-2.1); PHOSPHOROUS 3.5 mg/dL (2.5-4.9); POTASSIUM 4.9 mmol/L (3.5-5.1)
[2017-02-23 07:22] LABS: INTERNATIONAL NORM RATIO 4.1 (2.0-3.5); PROTHROMBIN TIME 47.2 SECONDS (9.0-12.4)
[2017-02-23 07:27] LABS: THYROID STIM HORMONE (HS) 4.52 uIU/ml (0.358-4.75)
[2017-02-23 07:43] LABS: FOLIC ACID 18.57 ng/mL (>5.38); VITAMIN D, 25-HYDROXY 25.5 ng/mL (30-100)
[2017-02-23 08:00] VITALS: BP 147/53
[2017-02-23 12:00] VITALS: BP 152/64
[2017-02-23] MEDS ORDERED: LEVAQUIN750 M1 PO (12:27)
== END 2017-02-23 14:22 | disposition home or self-care (01) | DRG 177 ==
LOC: ED 18:11 → EDHOLD 19:27 → 5E 19:38
PROVIDERS: Internal Medicine Hospice and Palliative Medicine; Nurse Practitioner Family
DX: J15.6 Pneumonia due to other Gram-negative bacteria (principal); E43 Unspecified severe protein-calorie malnutrition; N18.4 Chronic kidney disease, stage 4 (severe); D68.59 Other primary thrombophilia; E11.22 Type 2 diabetes mellitus with diabetic chronic kidney disease; I13.0 Hypertensive heart and chronic kidney disease with heart failure and stage 1 through stage 4 chronic kidney disease, or unspecified chronic kidney disease; I50.32 Chronic diastolic (congestive) heart failure; Z68.41 Body mass index [BMI] 40.0-44.9, adult; M1A.9XX0 Chronic gout, unspecified, without tophus (tophi); N40.0 Benign prostatic hyperplasia without lower urinary tract symptoms; E83.41 Hypermagnesemia; I45.10 Unspecified right bundle-branch block; F32.9 Major depressive disorder, single episode, unspecified; I25.10 Atherosclerotic heart disease of native coronary artery without angina pectoris; D63.1 Anemia in chronic kidney disease; K21.9 Gastro-esophageal reflux disease without esophagitis; E78.2 Mixed hyperlipidemia; E66.01 Morbid (severe) obesity due to excess calories; I48.0 Paroxysmal atrial fibrillation; Z79.4 Long term (current) use of insulin; Z95.4 Presence of other heart-valve replacement; Z90.49 Acquired absence of other specified parts of digestive tract; Z87.891 Personal history of nicotine dependence; Z80.42 Family history of malignant neoplasm of prostate; Z82.49 Family history of ischemic heart disease and other diseases of the circulatory system; Z84.89 Family history of other specified conditions; Z88.8 Allergy status to other drugs, medicaments and biological substances; Z91.048 Other nonmedicinal substance allergy status; Z79.899 Other long term (current) drug therapy; E11.42 Type 2 diabetes mellitus with diabetic polyneuropathy; J45.909 Unspecified asthma, uncomplicated

== ENCOUNTER → 2017-02-25 | Outpatient (CLI) | payer OTHER, MEDICAID ==
[~2017-02-25] MED LIST changes: +LEVAQUIN750 M1 PO
[2017-02-25 15:10] LABS: HEMATOCRIT 26.8 % (42.0-52.0); HEMOGLOBIN 8.2 g/dl (14.0-18.0); MEAN CELL VOLUME 90.2 fl (80.0-94.0); MEAN CORPUSCULAR HGB 27.6 pg (27.0-31.0); MEAN CORPUSCULAR HGB CONC 30.6 g/dl (33.0-37.0); MEAN PLATELET VOLUME 9.1 fl (9.6-12.3); NUCLEATED RED BLOOD CELL 0.3 % (0.0-0.0); RED BLOOD COUNT 2.97 10*6/uL (4.50-5.90); RED CELL DISTRI WIDTH 16.4 % (0-14.5)
[2017-02-25 15:41] LABS: INTERNATIONAL NORM RATIO 2.3 (2.0-3.5); PROTHROMBIN TIME 25.6 SECONDS (9.0-12.4)
== END | disposition home or self-care (01) ==
LOC: LAB 14:39
PROVIDERS: Internal Medicine
DX: D64.9 Anemia, unspecified (principal); R79.1 Abnormal coagulation profile

== ENCOUNTER → 2017-03-02 | Outpatient (CLI) | payer OTHER, MEDICAID | END | disposition home or self-care (01) | LOC: RAD 13:23 | DX: J90 Pleural effusion, not elsewhere classified (principal); J18.9 Pneumonia, unspecified organism ==

== ENCOUNTER → 2017-03-18 | Outpatient (CLI) | payer OTHER, MEDICAID ==
[2017-03-18 11:06] LABS: BILIRUBIN NEGATIVE (NEGATIVE); BLOOD 1+ (NEGATIVE); CLARITY CLEAR (CLEAR); COLOR YELLOW (YELLOW); GLUCOSE TRACE (NEGATIVE); KETONE NEGATIVE (NEGATIVE); LEUKO ESTERASE NEGATIVE (NEGATIVE); NITRITE NEGATIVE (NEGATIVE); PROTEIN 2+ (NEGATIVE); UROBILINOGEN 0.2 E.U./dl (0.2-1.0)
[2017-03-18 11:15] LABS: URINE REFLEX COMMENT YES (NO)
[2017-03-18 11:16] LABS: URINE TP/CRE RATIO 4.2 (<0.21)
[2017-03-18 11:18] LABS: BASO % 0.4 % (0.0-1.0); EOS # 0.1 10*3/uL (0.0-0.4); HEMATOCRIT 30.9 % (42.0-52.0); HEMOGLOBIN 9.3 g/dl (14.0-18.0); IG # 0.1 10*3/uL (0.0-0.1); LYMPH # 0.5 10*3/uL (1.3-4.4); LYMPH % 10.6 % (27.0-41.0); MEAN CELL VOLUME 97.5 fl (80.0-94.0); MEAN CORPUSCULAR HGB 29.3 pg (27.0-31.0); MEAN CORPUSCULAR HGB CONC 30.1 g/dl (33.0-37.0); MONO # 0.5 10*3/uL (0.1-1.0); MONO % 10.4 % (3.0-9.0); NEUT # 3.9 10*3/uL (2.3-7.9); PLATELET COUNT AUTOMATED 165 10*3/uL (130-400); RED BLOOD COUNT 3.17 10*6/uL (4.50-5.90); RED CELL DISTRI WIDTH 19.9 % (0-14.5); WHITE BLOOD COUNT 5.1 10*3/uL (4.8-10.8)
[2017-03-18 11:30] LABS: ALBUMIN 3.1 gm/dl (3.1-4.5); MAGNESIUM 2.6 mg/dL (1.5-2.1); PHOSPHOROUS 3.1 mg/dL (2.5-4.9); POTASSIUM 4.7 mmol/L (3.5-5.1); URIC ACID 8.6 mg/dL (3.5-7.2)
[2017-03-18 11:34] LABS: HEMOGLOBIN A1c 7.5 % (4.8-5.6)
[2017-03-19 15:46] LABS: FERRITIN 145.1 ng/mL (22.0-322.0); PTH INTACT 23.2 pg/mL (14.0-72.0); VITAMIN D, 25-HYDROXY 13.9 ng/mL (30-100)
== END | disposition home or self-care (01) ==
LOC: ORTHO 07:54 → LAB 07:54
PROVIDERS: Internal Medicine Nephrology
DX: E11.40 Type 2 diabetes mellitus with diabetic neuropathy, unspecified (principal); N18.4 Chronic kidney disease, stage 4 (severe); D63.1 Anemia in chronic kidney disease; N25.81 Secondary hyperparathyroidism of renal origin; E55.9 Vitamin D deficiency, unspecified; Z79.899 Other long term (current) drug therapy

== ENCOUNTER → 2017-05-12 | Outpatient (CLI) | payer OTHER ==
[2017-05-12 13:54] LABS: ALBUMIN 3.2 gm/dl (3.1-4.5); CREATININE 4.44 mg/dL (0.70-1.30); POTASSIUM 4.5 mmol/L (3.5-5.1)
[2017-05-12 13:55] LABS: PHOSPHOROUS 3.4 mg/dL (2.5-4.9)
== END | disposition home or self-care (01) ==
LOC: LAB 13:20
PROVIDERS: Internal Medicine Nephrology
DX: N18.4 Chronic kidney disease, stage 4 (severe) (principal)

== ENCOUNTER 2017-06-13 13:53 | Inpatient (IN) | payer OTHER ==
[~2017-06-13] VITALS: Ht 177.8 cm; Wt 134.8 kg
--- NOTE | ~2017-06-13 | PR ---
[place], [place] PROGRESS NOTE NAME: BRENDAN HARTMAN UNIT #: [id number] ROOM: 520 DOCTOR: BHARAT CALVILLO MD BIRTHDATE: [birth year] DOS: 06/16/2017 REASON FOR VISIT: Diastolic heart failure, atrial fibrillation and valvular heart disease. SUBJECTIVE: The patient is feeling better. Denies any chest pain or palpitations. Breathing is somewhat better. Edema slightly better than yesterday. No PND, no orthopnea. REVIEW OF SYSTEMS: Review of the 8 systems negative except as mentioned above. RHYTHM STRIPS: The patient was in sinus rhythm. PHYSICAL EXAMINATION: VITAL SIGNS: Blood pressure 130/58, pulse 64, respirations 18. GENERAL: Alert, comfortable, in no acute distress. HEENT: Pupils are round and equal. No jaundice. NECK: Supple. No distended neck veins. No carotid bruit. CHEST: Nontender. LUNGS: Few scattered rhonchi, diminished at bases. HEART: Regular rhythm, no S3, grade 1/6 systolic murmur, second heart sound was mechanical sound. ABDOMEN: Obese. EXTREMITIES: 2+ pitting edema. Distal pulses are fair. SKIN: Warm and dry. No cyanosis. IMPRESSION: 1. Chronic diastolic heart failure. 2. Paroxysmal atrial fibrillation. 3. History of mechanical aortic valve replacement. 4. History of bypass surgery. 5. Chronic kidney disease. 6. Exogenous obesity. RECOMMENDATIONS: 1. Continue current medications. 2. Renal consultants are managing his diuretics. 3. No further cardiac testing at this time. 4. He will follow up with Dr. Rush who is his service parts driver after discharge. [place], [place] PROGRESS NOTE NAME: BRENDAN HARTMAN UNIT #: [id number] ROOM: 520 DOCTOR: BHARAT CALVILLO MD BIRTHDATE: [birth year] BHARAT CALVILLO MD CM:PNTRANS [id number] BHARAT CALVILLO MD 06/16/172245 interface
--- NOTE | ~2017-06-13 | PR ---
[place], [place] PROGRESS NOTE NAME: BRENDAN HARTMAN UNIT #: [id number] ROOM: 520 DOCTOR: BHARAT CALVILLO MD BIRTHDATE: [birth year] DOS: 06/15/2017 CARDIOLOGY FOLLOWUP VISIT NOTE REASON FOR VISIT: Diastolic heart failure and atrial fibrillation. HISTORY OF PRESENT ILLNESS: The patient is feeling better, still has significant edema. Denies some chest pain or palpitations. No orthopnea, no PND, no cough, no hemoptysis. REVIEW OF SYSTEMS: Review of the 8 systems negative except as mentioned above. RHYTHM STRIPS: The patient in sinus rhythm. MEDICATIONS AND ALLERGIES: Reviewed. LABORATORY DATA: Reviewed. PHYSICAL EXAMINATION: GENERAL: Alert, comfortable, in no acute distress. HEAD AND NECK: Pupils are round and equal. No jaundice. NECK: Supple, no distended neck veins, no carotid bruit. Tongue was moist and pharynx was clear. CHEST: Symmetrical and nontender. LUNGS: A few scattered rhonchi, slightly decreased at bases. HEART: Regular rhythm, no S3, grade 1/6 systolic murmur. Mechanical second heart sound the heart examination. ABDOMEN: Obese, nontender. Bowel sounds normal. EXTREMITIES: Showed 2+ edema. Distal pulses are fair. No cyanosis, no clubbing. NEUROLOGIC: The patient is alert and oriented. No focal neurologic deficit. RECTAL: Deferred. IMPRESSION: 1. Chronic diastolic heart failure. 2. History of paroxysmal atrial fibrillation. 3. Status post mechanical aortic valve replacement in 2014. 4. Status post bypass surgery in 2014. 5. Chronic kidney disease. RECOMMENDATIONS: 1. The nephrology is on case and adjusting his diuretics and the patient is aware of possible worsening of renal function with more diuresis. 2. Continue discharge medications. 2. We will follow up with Dr. Rush, his litigation assistant, in [place] after the discharge. [place], [place] PROGRESS NOTE NAME: BRENDAN HARTMAN UNIT #: [id number] ROOM: 520 DOCTOR: BHARAT CALVILLO MD BIRTHDATE: [birth year] BHARAT CALVILLO MD CM:PNTRANS [id number] BHARAT CALVILLO MD 06/16/172 interface
--- NOTE | ~2017-06-13 | PR ---
[place], [place] PROGRESS NOTE [id number] UNIT #: [id number] ROOM: 520 DOCTOR: TRINI HOOD MD BIRTHDATE: [birth year] DOS: 06/15/2017 SUBJECTIVE: The patient was seen in followup with CKD with volume overload. Overall, he states that he is volume up still, still does not have his prior weight, which was around 208 pounds before his went to the hospital. His breathing is improving, but still not at baseline. He continues to have dyspnea mostly with exertion. He is sitting in the chair after he went to the bathroom. He is moving his bowels without problem. Does not report any retentive symptoms. He is currently on metolazone 5 daily as well as Bumex 2 IV b.i.d. From a diuretic standpoint, he is losing weight, but I think only slowly. His echocardiogram yesterday was reviewed and it showed normal left ventricular segmental wall motion with moderate LVH, left ventricular systolic function was normal with an EF of 55%, but grade 2 filling dynamics with diastolic dysfunction. There was a preserved RV function. The left atrium is severely dilated. The aortic valve was not well visualized, but leaflet were sclerae with adequate excursion, no stenosis. The IVC was dilated PHYSICAL EXAMINATION: VITAL SIGNS: 97.8, 62, 16, 130/50, 96% on room air. GENERAL: Awake, alert, oriented, no acute distress, more dyspneic with exertion. HEAD AND NECK: Sclerae are anicteric. Oropharynx is clear. Mucous membranes are moist, slightly dry. No JVP that I can see but he has a thick neck be has a thick neck and sitting up. EXTREMITIES: Lower extremity edema is still 3-4+. He has stocking hose in place as well. ABDOMEN: Grossly distended with obesity, but some fluid likely can ____ there as well. LABORATORY DATA: Platelets are 149,000, white blood cell count 5000, hemoglobin 7.8 and slightly down trending, his sodium 139, potassium 4.0, chloride 100, bicarbonate 31, BUN 73, creatinine 3.68, fairly stable. Glucose 144, calcium 8.2. The last iron studies that I have on him were from March with 18% iron saturation, ferritin of 145,000. Certainly, request to repeat these, but he has needed iron as well as erythropoietin stimulating agents from Dr. Stevens. He is somewhere near the [facility]. ASSESSMENT AND PLAN: Advanced chronic kidney disease 3. The patient has an AV fistula in place, has positive thrill and bruit. He does not require dialysis acutely, but volume overload does predominate the issue. Hypertension is under fairly good control as the volume is improving. We actually may need to reduce some of his oral antihypertensive medications if we successfully diurese him more. I will increase his Bumex to 3 mg t.i.d. from 2 mg b.i.d. and may be if that is not enough, may be increase his metolazone to 10 mg at least on an every other day basis and continue to 5 mg daily. He should continue on his Coumadin, monitor for any signs of acute blood loss, which he has had in the past and both GI losses, most likely he has had a history of ____ does state that he is moving her bowels well with the Reglan at this time, but we will have to monitor for any extrapyramidal tardive dyskinesia. His electrolytes are acceptable at this point. As above, I will give him erythropoietin stimulating agent dose and iron load. I did happen to see his last phosphorus still being within normal limits [place], [place] PROGRESS NOTE NAME: BRENDAN HARTMAN UNIT #: [id number] ROOM: [facility] DOCTOR: TRINI HOOD MD BIRTHDATE: [birth year] and his vitamin D and PTH are slightly low. He is on vitamin D, gradually increase the dose. TRINI HOOD MD CM:PNTRANS [id number] TRINI HOOD MD 06/15/172210 interface
--- NOTE | ~2017-06-13 | PR ---
[place], [place] PROGRESS NOTE [id number] #: [id number] ROOM: 520 DOCTOR: TRINI HOOD MD BIRTHDATE: [birth year] DOS: 06/16/2017 SUBJECTIVE: Patient is seen in followup of acute on chronic kidney injury with CHF and volume overload. He is not reporting any new acute symptoms at this time. Weight is modestly decreased; I changed his Bumex to 3 mg 3 times a day and continued his current metolazone dose. I spoke with Cardiology yesterday about increasing the diuretics. His EF was preserved, but he has grade 2 diastolic dysfunction with severely dilated left atrium. He is feeling fatigued and some of this may be related to worsening renal function, but also from significant anemia. I ordered his Procrit, which he received and also ordered iron, but these will take some time if he is to have any effect. Of note, he did have a history of bleeding, which we will need to follow as well. Volume remains up. He is comfortable when breathing at rest and he is not lying flat, but with the head of the bed slightly up he seems comfortable. PHYSICAL EXAMINATION: VITAL SIGNS: His blood pressures are controlled in the 130s-150s/50s, he is febrile, heart rates are in the 60s to 90s, respiratory rate 16-20, pulse ox 95%. GENERAL: Awake, alert and oriented, pleasant, joking, jovial. Mental status is at baseline. HEENT: Sclerae anicteric. Oropharynx is slightly dry. No thrush. NECK: Thick neck. LUNGS: Clear, but diminished bilaterally at the bases. ABDOMEN: Grossly distended with obesity. I cannot tell if there is some fluid there as well. EXTREMITIES: Lower extremity edema 3+ at least still, stocking hose in place. NEUROLOGIC: Gross motor function is intact. No asterixis. No myoclonus. PSYCHIATRIC: Mood and affect are all normal. Speech is intact. LABORATORIES AND DIAGNOSTICS: Hemoglobin 7.5, platelets 147, white count 6.2. INR 3.0. Sodium 139, potassium 4.1, chloride 99, bicarb 32, BUN 80, creatinine 4.07, up slightly, GFR minimally changed at 15. Albumin 2.8. Ferritin 455 and iron saturation only 13%. ASSESSMENT AND PLAN: 1. Advanced chronic kidney disease stage 4, nearing stage 5 now, very close to needing dialysis. Maximize diuretics for right now, but may need to start him on dialysis if his creatinine continues to rise up and his urine output does not show any significant improvement. I will give him additional diuretic today and increase his metolazone to 10. He only lost a couple of pounds based on the weights. 2. Electrolytes and acid base are acceptable. 3. Anemia, significant, iron is low, continue on replacement. He normally follows with Heme/Onc. I have given him one dose of Procrit here. We will continue to follow. This will take some time for any effect and he should continue these doses as an outpatient as well with his usual contact lens blocker until and unless we start him on dialysis; in that case, we can give it him on dialysis. 4. Metabolic bone disease, vitamin D deficiency and this is treated with [place], [place] PROGRESS NOTE NAME: BRENDAN HARTMAN UNIT #: [id number] ROOM: [facility] [place] DOCTOR: TRINI HOOD MD BIRTHDATE: [birth year] increase of his replacement vitamin D right now, adjust calcium as acceptable. Phosphorus is stable at 2.7. 5. Volume and hypertension as above. 6. History of atrial fibrillation, on Coumadin. TRINI HOOD MD CM:PNTRANS [id number] TRINI HOOD MD 06/17/17 0015 interface
[~2017-06-13 13:53] MED LIST changes: +LANTUS SOL100 UNIT/1 SQ; -LANTUS100 U/ML SC
[2017-06-13 13:58] VITALS: BP 173/61
[2017-06-13 14:13] VITALS: BP 154/53
[2017-06-13 14:32] LABS: BASO % 0.2 % (0.0-1.0); EOS # 0.1 10*3/uL (0.0-0.4); EOS % 1.9 % (1.0-4.0); HEMATOCRIT 25.9 % (42.0-52.0); HEMOGLOBIN 8.4 g/dl (14.0-18.0); LYMPH # 0.4 10*3/uL (1.3-4.4); MEAN CELL VOLUME 100.4 fl (80.0-94.0); MEAN CORPUSCULAR HGB 32.6 pg (27.0-31.0); MEAN CORPUSCULAR HGB CONC 32.4 g/dl (33.0-37.0); MEAN PLATELET VOLUME 9.2 fl (9.6-12.3); MONO # 0.4 10*3/uL (0.1-1.0); MONO % 10.4 % (3.0-9.0); NEUT # 3.3 10*3/uL (2.3-7.9); NEUT % 76.8 % (47.0-73.0); NUCLEATED RED BLOOD CELL 0.5 % (0.0-0.0); PLATELET COUNT AUTOMATED 165 10*3/uL (130-400); RED BLOOD COUNT 2.58 10*6/uL (4.50-5.90); RED CELL DISTRI WIDTH 17.2 % (0-14.5); WHITE BLOOD COUNT 4.2 10*3/uL (4.8-10.8)
[2017-06-13 14:47] LABS: CREATININE 3.73 mg/dL (0.70-1.30); POTASSIUM 4.8 mmol/L (3.5-5.1)
[2017-06-13 14:54] LABS: INTERNATIONAL NORM RATIO 2.4 (2.0-3.5)
[2017-06-13 15:43] VITALS: BP 166/66
[2017-06-13 16:00] VITALS: BP 131/38
[2017-06-13 16:15] VITALS: BP 162/61
--- NOTE | 2017-06-13 16:45 | NUR ---
A 67, admitted to 5E, under the services of JAIDEN Calloway DO with a diagnosis of CHF. Chief complaint is SOB, WEAKNESS. Patient arrived via stretcher from ER. Monitor applied. Initial assessment completed. Vital signs taken and recorded. JAIDEN CALLOWAY DO notified of admission to the unit. Orders received. See assessment for past medical history, medications and allergies. Patient and/or family oriented to unit. visitation policy reviewed. Clothing/patient valuable form completed. ROSS CHEN
[2017-06-13] MEDS ORDERED: FERROUS SULFAT324 M2 PO (17:06)
[2017-06-13] MEDS ORDERED: FLONASE ALLERG9.9 ML NAS (17:07)
[2017-06-13] MEDS ORDERED: MOM30 M1 PO (17:13)
[2017-06-13] MEDS ORDERED: B-1100 M1 PO (17:15)
[2017-06-13] MEDS ORDERED: COUMADIN5 M2 PO (17:18)
[2017-06-13] MEDS ORDERED: ADVAIR 250/501 EA INH (17:18)
--- NOTE | 2017-06-13 17:22 | NUR ---
Medication list reviewed with pt , pt and dose of Advair clarified with [facility] pharmacist as this was a new med today to replace spiriva as insurance would not cover it. Pt had list with her and medications on list that did not have dosages such as insulin and warfarin were verfied with pt and his .
--- NOTE | 2017-06-13 18:14 | NUR ---
DR EMERY ANSWERING SERVICE NOTIFIED OF CONSULT
--- NOTE | 2017-06-13 18:17 | NUR ---
DR SAAVEDRA ANSWERING SERVICE NOTIFIED OF CONSULT
--- NOTE | 2017-06-13 18:42 | NUR ---
ATTEMPTED TO TAKE PHOTOS AND MEASUREMENTS OF PT BACK RIGHT CALF. PT REFUSING AT THIS TIME. STATES " IM EATING "
[2017-06-13 20:00] VITALS: BP 143/43
--- NOTE | 2017-06-13 21:00 | NUR ---
SITTING AT BEDSIDE, NO ACUTE DISTRESS NOTED. RESPIRATIONS EASY. LUNGS DIMINISHED, CLEAR. PULSE OX 95% RA, DENIES SOB. UNMATURED FISTULA NOTED TO RIGHT WRIST AREA. +2 BLE EDEMA. OPEN WOUND TO RIGHT POSTERIOR CALF. CALL LIGHT WITHIN REACH. NO VOICED COMPLAINTS
--- NOTE | 2017-06-13 21:45 | NUR ---
WOUND PIC TAKEN AND DOCUMENTED
--- NOTE | 2017-06-13 22:25 | NUR ---
DR VELEZ AND DR Ibis ALCARAZ CONTACTED REGARDING HOME MEDS NOT ORDERED AND NEED FOR WOUND CARE ORDERS.
--- NOTE | 2017-06-13 23:00 | NUR ---
DRESSING APPLIED TO RIGHT POSTERIOR CALF
[2017-06-14] VITALS: BP 137/48
--- NOTE | 2017-06-14 | NUR ---
REMAINS AWAKE. VSS. CALL LIGHT WITHIN REACH
--- NOTE | 2017-06-14 06:00 | NUR ---
AWAKE, SITTING AT BEDSIDE. RESPIRATIONS EASY. CALL LIGHT WITHIN REACH. NO VOICED COMPLAINTS THIS SHIFT
[2017-06-14 07:03] LABS: BASO % 0.3 % (0.0-1.0); EOS # 0.1 10*3/uL (0.0-0.4); EOS % 1.9 % (1.0-4.0); HEMATOCRIT 25.7 % (42.0-52.0); HEMOGLOBIN 8.1 g/dl (14.0-18.0); LYMPH # 0.4 10*3/uL (1.3-4.4); LYMPH % 7.1 % (27.0-41.0); MEAN CELL VOLUME 100.8 fl (80.0-94.0); MEAN CORPUSCULAR HGB 31.8 pg (27.0-31.0); MEAN CORPUSCULAR HGB CONC 31.5 g/dl (33.0-37.0); MEAN PLATELET VOLUME 9.9 fl (9.6-12.3); MONO # 0.6 10*3/uL (0.1-1.0); MONO % 10.6 % (3.0-9.0); NEUT # 4.6 10*3/uL (2.3-7.9); NEUT % 78.2 % (47.0-73.0); PLATELET COUNT AUTOMATED 152 10*3/uL (130-400); RED BLOOD COUNT 2.55 10*6/uL (4.50-5.90); RED CELL DISTRI WIDTH 17.2 % (0-14.5); WHITE BLOOD COUNT 5.9 10*3/uL (4.8-10.8)
[2017-06-14 07:34] LABS: CREATININE 3.65 mg/dL (0.70-1.30); FREE T4 1.07 ng/dl (0.76-1.46); PHOSPHOROUS 2.7 mg/dL (2.5-4.9); POTASSIUM 4.4 mmol/L (3.5-5.1); TOTAL PROTEIN 7.2 gm/dL (6.4-8.2)
[2017-06-14 07:39] LABS: THYROID STIM HORMONE (HS) 5.57 uIU/ml (0.358-4.75)
[2017-06-14 07:41] LABS: ACT PARTIAL THROMBO TIME 45.5 SECONDS (20.8-31.5); INTERNATIONAL NORM RATIO 2.5 (2.0-3.5)
[2017-06-14 08:00] VITALS: BP 140/46
--- NOTE | 2017-06-14 08:00 | NUR ---
RESTING QUIETLY NO C/O NO DISTRESS NOTED. LEGS EDEMATOUS AND RED. OPEN AREAS TO RIGHT LEG. DRESSINGS INTACT.
[2017-06-14 08:45] LABS: VITAMIN D, 25-HYDROXY 23.2 ng/mL (30-100)
--- NOTE | 2017-06-14 08:53 | NUR ---
Shut Off Worker in to talk to patient. Patient states lives at home with . There are few steps in the home. Physician: marti manriquez Pharmacy: [facility] Home health services: none Patient's level of ADLs: MINIMAL ASSIST Patient has working utilities: all working DME: cane Follow-up physician's appointment after d/c: will be made by hospitalist nurse director upon discharge Does patient want to access PORTAL?: no Discharge plan discussed with patient, patient lives at home with , uses a cane for ambulation, patient states he will be going back home when able and denies any home needs. LOAN WAYNE
--- NOTE | 2017-06-14 09:00 | NUR ---
WOUND CARE NURSE IN AND ASSESSED WOUNDS. NEW DRESSING APPLIED.
[2017-06-14 10:35] VITALS: BP 133/56
--- NOTE | 2017-06-14 10:38 | NUR ---
BRENDAN HARTMAN [id number] Please refer to the physician's history and physical for past medical history, comorbid conditions, and allergies. Diagnosis: CHF Taiwo Score: 15,AT RISK WOUND DESCRIPTIONS: Location of the wound: right posterior leg Thickness: Partial Size: 1.3cm x 0.4cm x 0.1cm Tunneling: none Undermining: none Sinus Tract: none Presence of Exudate: Serous Amount: Moderate Color: Red Odor: None Periwound Skin Appearance: Macerated Wound edges: approximated Pain (associated with wound): none at time of assessment How does patient state this happened? pt stated when his legs gets swollen it does this Location of the wound: right yoder Type of wound: Thickness: Partial Size: 1.5cm x 0.5cm x 0.1cm Tunneling: none Undermining: none Sinus Tract: none Presence of Exudate: Serous Amount: Light Color: Red Odor: None Periwound Skin Appearance: Normal Wound edges: approximated Pain (associated with wound): none at time of assessment How does patient state this happened? pt stated when legs gets swollen this happened Surface the patient is resting on: Isoflex SKIN PREVENTION RECOMMENDATION: 1. Pressure redistribution support surface as appropriate 2. Elevate heels 3. Remove boots/TEDS every shift and reapply 4. Head of bed 30 degrees as tolerated 5. Assess nutrition and hydration 6. Manage moisture 7. Avoid the use of containment devices while in bed 8. Use absorptive products on surfaces limit layers of linens on bed 9. Turn and reposition every 1-2 hours in bed and every 1 hour in chair as tolerated 10. Weight shifts every 15 minutes while up in chair 11. Offloading with pillows or device to keep heels elevated off bed 12. Monitor skin at least every shift 13. Inspect under medical devices twice a day WOUND TREATMENT RECOMMENDATIONS: Cleanse areas with normal saling and apply sureprep to surrounding wound bed therahoney to wound bed cover with maxorb ag daily and prn for soiling. Spoke with Luz Maria regarding patient wanting to follow up in the wound care center. Spoke with Nallely regarding wound care recommendations.
[2017-06-14 12:00] VITALS: BP 150/56
--- NOTE | 2017-06-14 15:34 | NUR ---
PHYSICAL THERAPY Physical Therapy Evaluation completed this date. See eval document for further details. Will begin PT intervention to address the impairments of muscle weakness, decreased dynamic balance in upright, and difficulty ambulating during inpnt stay. Recommend home with home health services as able[place] [id number] based on chart review and PT eval. Shireen Rashid, PT
[2017-06-14 16:00] VITALS: BP 165/59
--- NOTE | 2017-06-14 16:00 | NUR ---
NO C/O NO DISTRESS NOTED. LEGS EDEMATOUS. SEVERAL AREAS LOOK LIKE THEY ARE GOING TO BLISTER. WILL CONTINUE TO MONITOR. PT INSISTED ON PUTTING MELISSA HOSE ON.
[2017-06-14 20:00] VITALS: BP 149/56
--- NOTE | 2017-06-14 20:00 | NUR ---
SITTING UP AT BEDSIDE. AAOX3. HEP LOCK INTACT TO LEFT HAND. PT. VOICES NO C/O AT THIS TIME; NO DISTRESS NOTED. CALL LIGHT WITHIN REACH.
--- NOTE | 2017-06-14 21:30 | NUR ---
BLOOD SUGAR 222; COVERAGE GIVEN PER EMAR.
[2017-06-15] VITALS: BP 144/60
[2017-06-15 06:28] LABS: BASO % 0.4 % (0.0-1.0); EOS # 0.1 10*3/uL (0.0-0.4); EOS % 1.6 % (1.0-4.0); HEMATOCRIT 23.8 % (42.0-52.0); HEMOGLOBIN 7.8 g/dl (14.0-18.0); LYMPH # 0.4 10*3/uL (1.3-4.4); LYMPH % 7.7 % (27.0-41.0); MEAN CORPUSCULAR HGB 32.8 pg (27.0-31.0); MEAN CORPUSCULAR HGB CONC 32.8 g/dl (33.0-37.0); MEAN PLATELET VOLUME 10.4 fl (9.6-12.3); MONO # 0.7 10*3/uL (0.1-1.0); MONO % 13.1 % (3.0-9.0); NEUT # 3.8 10*3/uL (2.3-7.9); NEUT % 76.2 % (47.0-73.0); NUCLEATED RED BLOOD CELL 0.4 % (0.0-0.0); PLATELET COUNT AUTOMATED 149 10*3/uL (130-400); RED BLOOD COUNT 2.38 10*6/uL (4.50-5.90); RED CELL DISTRI WIDTH 17.2 % (0-14.5)
--- NOTE | 2017-06-15 06:30 | NUR ---
BLOOD SUGAR 160; COVERAGE GIVEN PER EMAR.
[2017-06-15 07:16] LABS: ALBUMIN 2.8 gm/dl (3.1-4.5); CREATININE 3.68 mg/dL (0.70-1.30)
[2017-06-15 07:17] LABS: TOTAL PROTEIN 7.1 gm/dL (6.4-8.2)
--- NOTE | 2017-06-15 07:30 | NUR ---
ASSUMED CARE OF PT AT THIS TIME, RESPS EASY AND NONLABORED WITH NO S/S OF DISTRESS CALL LIGHT WITH IN REACH
[2017-06-15 08:00] VITALS: BP 130/50
[2017-06-15 10:50] VITALS: BP 120/62
[2017-06-15 13:11] LABS: INTERNATIONAL NORM RATIO 2.9 (2.0-3.5)
[2017-06-15 16:00] VITALS: BP 142/58
[2017-06-15 20:00] VITALS: BP 148/50
--- NOTE | 2017-06-15 21:00 | NUR ---
PT HS ASSESSMENT COMPLETE AT THIS TIME. PT ALERT ORIENTED AND COOPERATIVE. VITALS WNL. NO S/S OF DISTRESS. RESPIRATIONS EASY. BLOOD SUGAR OBTAINED AND COVERAGE GIVEN PER ORDER. ALL OTHER HS MEDICATION TAKEN WITH EASE. IV SITE PATENT, DRESSING DRY AND IN TACT. PT CURRENTLY SITTING UP IN BED, CALL LIGHT IN REACH.
[2017-06-16] VITALS: BP 134/51
--- NOTE | 2017-06-16 01:29 | NUR ---
24 HR chart check completed.
--- NOTE | 2017-06-16 04:33 | NUR ---
PT RESTING IN BED, NOT AWAKENED PER POLICY. RESPIRATIONS EASY AND UNLABORED. HR 72 PER CM. NO S/S OF DISTRESS AT THIS TIME.
--- NOTE | 2017-06-16 06:44 | NUR ---
PT MORNING BLOOD SUGAR OBTAINED, 219. SEE EMAR FOR COVERAGE. PT TOLERATED COVERAGE WELL. ALL OTHER MEDICATION TAKEN WITH EASE. NO S/S OF PAIN OR DISTRESS. RESPIRATIONS EASY.
[2017-06-16 07:13] LABS: IRON 53 ug/dL (65-175); TOTAL IRON BINDING CAPACITY 379 ug/dl (250-450)
[2017-06-16 07:29] LABS: BASO % 0.3 % (0.0-1.0); EOS # 0.1 10*3/uL (0.0-0.4); HEMATOCRIT 24.1 % (42.0-52.0); HEMOGLOBIN 7.8 g/dl (14.0-18.0); LYMPH # 0.4 10*3/uL (1.3-4.4); LYMPH % 5.8 % (27.0-41.0); MEAN CELL VOLUME 99.6 fl (80.0-94.0); MEAN CORPUSCULAR HGB 32.2 pg (27.0-31.0); MEAN CORPUSCULAR HGB CONC 32.4 g/dl (33.0-37.0); MEAN PLATELET VOLUME 9.7 fl (9.6-12.3); MONO # 0.6 10*3/uL (0.1-1.0); NEUT # 5.1 10*3/uL (2.3-7.9); NEUT % 81.8 % (47.0-73.0); PLATELET COUNT AUTOMATED 147 10*3/uL (130-400); RED BLOOD COUNT 2.42 10*6/uL (4.50-5.90); RED CELL DISTRI WIDTH 17.2 % (0-14.5); WHITE BLOOD COUNT 6.2 10*3/uL (4.8-10.8)
[2017-06-16 08:00] VITALS: BP 130/58
[2017-06-16 08:02] LABS: ALBUMIN 2.8 gm/dl (3.1-4.5); CREATININE 4.07 mg/dL (0.70-1.30); POTASSIUM 4.1 mmol/L (3.5-5.1); TOTAL PROTEIN 7.2 gm/dL (6.4-8.2)
[2017-06-16 08:31] LABS: HEMATOCRIT 23.5 % (42.0-52.0); HEMOGLOBIN 7.5 g/dl (14.0-18.0)
[2017-06-16 12:00] VITALS: BP 152/52
--- NOTE | 2017-06-16 14:06 | NUR ---
DR HOOD ROUNDED,NO NEW ORDERS.
[2017-06-16 16:00] VITALS: BP 132/48
--- NOTE | 2017-06-16 17:12 | NUR ---
DRESSING CHANGE TO RIGHT FRANCES AND POSTERIOR CALF COMPLETED PER PHYSICIAN ORDERS. REMOVED MELISSA HOSE AND APPLIED TUBI BRINEYARD SUPERVISOR TO RIGHT LOWER LEG ONLY.
[2017-06-16 20:00] VITALS: BP 145/62
[2017-06-17] VITALS: BP 141/56
--- NOTE | 2017-06-17 02:00 | NUR ---
SLEEPING. RESP EASY AND NONLABORED ON ROOM AIR. NO DISTRESS NOTED. CALL LIGHT IN REACH. WILL CONTINUE TO MONITOR.
[2017-06-17 04:00] VITALS: BP 138/64
--- NOTE | 2017-06-17 05:15 | NUR ---
STOOL COLLECTED AND SENT TO LAB
[2017-06-17 06:44] LABS: BASO % 0.3 % (0.0-1.0); EOS # 0.1 10*3/uL (0.0-0.4); EOS % 1.4 % (1.0-4.0); HEMATOCRIT 22.8 % (42.0-52.0); HEMOGLOBIN 7.4 g/dl (14.0-18.0); LYMPH # 0.5 10*3/uL (1.3-4.4); LYMPH % 7.6 % (27.0-41.0); MEAN CELL VOLUME 100.4 fl (80.0-94.0); MEAN CORPUSCULAR HGB 32.6 pg (27.0-31.0); MEAN CORPUSCULAR HGB CONC 32.5 g/dl (33.0-37.0); MEAN PLATELET VOLUME 10.3 fl (9.6-12.3); MONO # 0.8 10*3/uL (0.1-1.0); MONO % 13.5 % (3.0-9.0); NEUT # 4.5 10*3/uL (2.3-7.9); NEUT % 75.7 % (47.0-73.0); NUCLEATED RED BLOOD CELL 0.5 % (0.0-0.0); PLATELET COUNT AUTOMATED 150 10*3/uL (130-400); RED BLOOD COUNT 2.27 10*6/uL (4.50-5.90); RED CELL DISTRI WIDTH 17.4 % (0-14.5); WHITE BLOOD COUNT 5.9 10*3/uL (4.8-10.8)
[2017-06-17 06:59] LABS: CREATININE 4.32 mg/dL (0.70-1.30); POTASSIUM 4.3 mmol/L (3.5-5.1)
[2017-06-17 07:01] LABS: INTERNATIONAL NORM RATIO 3.3 (2.0-3.5)
--- NOTE | 2017-06-17 07:32 | NUR ---
24 HR chart check completed.
[2017-06-17 08:00] VITALS: BP 124/47
--- NOTE | 2017-06-17 09:00 | NUR ---
case management visits with patient, patient denies any home needs
[2017-06-17 12:00] VITALS: BP 152/48
--- NOTE | 2017-06-17 12:36 | NUR ---
PHYSICAL THERAPY Mr Haynes was seen this AM 1:1 for his therapy session. Pt having impairments of muscle weakness, and decreased balance. Transfer supine/sit CGA X 1, sitting balance supervision x 1, sit/stand and standing balance with Pt's straight cane MIN A X 1. Gait total 62' X 1, MOD DIRECTOR OF ACQUISITION MARKETING X 1, with verbal cueing for gait, balance safety, no LOB with this gait. After short rest act EX to bilateral LE of marching, LAQ's, and ankle pumps working in 20 reps each with cues for each Ex. RUBEN OLIVAREZ LINK AND LINK KNITTING MACHINE OPERATOR.
--- NOTE | 2017-06-17 14:43 | NUR ---
PHYSICAL THERAPY Patient presented to therapy with report of feeling stronger. Patient says hwe is suppossed to be transferred back to home soon. Patient performed sit to stand with SBA. Patient performed gait with Standard Walker and SBA for 40' x 1. Patient performed seated ther ex in all planes x 20 reps each in seated position. Patient was 1:1 with this EDUCATION MANAGER for 25 minutes total. PACO RAMÍREZ EDUCATION MANAGER
[2017-06-17 16:00] VITALS: BP 143/40
--- NOTE | 2017-06-17 16:20 | NUR ---
DR HOOD ROUNDED AND DISCUSSED PLAN OF CARE WITH PT. DR HOOD CONTEMPLATED PARACENTESIS AND ORDER US OF ABD. DISCUSSED POSSIBILITY OF BEGINNING HEMODIALYSIS SOON ALSO. ASKED THAT I HOLD 1800 DOSE OF COUMADIN 5MG TODAY IN CASE HE POSSIBLY HAS TO HAVE PARACENTESIS.ORDERS RECIEVED.
--- NOTE | 2017-06-17 18:00 | NUR ---
COUMADIN [address] HOOD'S ORDER JUST FOR TODAY.
[2017-06-17 20:00] VITALS: BP 143/78
--- NOTE | 2017-06-17 20:00 | NUR ---
ASSUMED CARE OF PATIENT. ASSESSMENT COMPLETE. RESTING IN BED, NO VOICED COMPLAINTS. CALL LIGHT IN REACH. WILL CONTINUE TO MONITOR.
[2017-06-18] VITALS (9 sets, daily range): BP systolic 112–148; BP diastolic 47–84
--- NOTE | 2017-06-18 02:00 | NUR ---
SLEEPING. RESP EASY AND NONLABORED. O2 INTACT. CALL LIGHT IN REACH. WILL CONTINUE TO MONITOR.
[2017-06-18 07:09] LABS: BASO % 0.3 % (0.0-1.0); EOS # 0.1 10*3/uL (0.0-0.4); HEMATOCRIT 21.6 % (42.0-52.0); HEMOGLOBIN 6.9 g/dl (14.0-18.0); LYMPH # 0.5 10*3/uL (1.3-4.4); LYMPH % 7.9 % (27.0-41.0); MEAN CORPUSCULAR HGB 31.9 pg (27.0-31.0); MEAN CORPUSCULAR HGB CONC 31.9 g/dl (33.0-37.0); MEAN PLATELET VOLUME 9.5 fl (9.6-12.3); MONO # 0.9 10*3/uL (0.1-1.0); MONO % 14.6 % (3.0-9.0); NEUT # 4.3 10*3/uL (2.3-7.9); NEUT % 74.1 % (47.0-73.0); NUCLEATED RED BLOOD CELL 0.1 10*3/uL (0.0-0.0); NUCLEATED RED BLOOD CELL 0.9 % (0.0-0.0); PLATELET COUNT AUTOMATED 143 10*3/uL (130-400); RED BLOOD COUNT 2.16 10*6/uL (4.50-5.90); RED CELL DISTRI WIDTH 17.5 % (0-14.5); WHITE BLOOD COUNT 5.8 10*3/uL (4.8-10.8)
--- NOTE | 2017-06-18 07:14 | NUR ---
IV started left antecubital with #22 protective cath after 2 attempts. Site prepped with Chloroprep. Sterile dressing applied. Patient tolerated procedure well. NEAL GARCIA
[2017-06-18 07:48] LABS: ALBUMIN 2.8 gm/dl (3.1-4.5); CREATININE 4.46 mg/dL (0.70-1.30); PHOSPHOROUS 4.6 mg/dL (2.5-4.9)
[2017-06-18 07:50] LABS: INTERNATIONAL NORM RATIO 3.3 (2.0-3.5)
--- NOTE | 2017-06-18 09:00 | NUR ---
case management visits with patient, patient states he will be going home when able, discussed with him [facility] and he refused any services at this time
--- NOTE | 2017-06-18 10:36 | NUR ---
FIRST UNIT OF PACKED RED BLOOD CELLS STARTED AT THIS TIME.
--- NOTE | 2017-06-18 10:52 | NUR ---
PHYSICAL THERAPY Patient was recieving blood transfusion at 10:55 am. Patient is recieving the first pint of blood , but will be recieving a second pint of blood after the first one. NO THERAPY PERFORMED DUE TO THE PATIENT HAVING A BLOOD TRANSFUSION. PACO RAMÍREZ PANEL LAY UP WORKER 06/18/2017
--- NOTE | 2017-06-18 13:10 | NUR ---
PHYSICAL THERAPY Pt seen this PM 1:1 for his therapy session. Tj on his first unit of blood, going to get two units today. RUBEN OLIVAREZ METAL ORGAN PIPE MAKER.
--- NOTE | 2017-06-18 14:44 | NUR ---
PT AT DIALYSIS PER ORDER AT THIS TIME.
--- NOTE | 2017-06-18 14:45 | NUR ---
2ND UNIT OF PACKED RED BLOOD CELLS TO BE GIVEN DURING DIALYSIS.
[2017-06-18 18:53] LABS: HEMATOCRIT 27.9 % (42.0-52.0); HEMOGLOBIN 9.4 g/dl (14.0-18.0)
--- NOTE | 2017-06-18 20:00 | NUR ---
ASSUMED CARE OF PATIENT. ASSESSMENT COMPLETE. RESTING IN BED. CALL LIGHT IN REACH. WILL CONTINUE TO MONITOR.
--- NOTE | 2017-06-18 23:00 | NUR ---
PT PLACED ON THE NIGHT TIME PULSE OX. PROBE ON LEFT INDEX FINGER. ALARMS SET, RN AWARE OF TEST
[2017-06-19] VITALS: BP 116/56
--- NOTE | 2017-06-19 02:00 | NUR ---
SLEEPING. RESP EASY AND NONLABORED. CALL LIGHT IN REACH. WILL CONTINUE TO MONITOR.
--- NOTE | 2017-06-19 07:08 | NUR ---
PATIENT TRANSPORTED TO DIALYSIS VIA BED.
[2017-06-19 07:27] LABS: BASO % 0.4 % (0.0-1.0); EOS # 0.1 10*3/uL (0.0-0.4); HEMATOCRIT 27.9 % (42.0-52.0); LYMPH # 0.4 10*3/uL (1.3-4.4); LYMPH % 5.5 % (27.0-41.0); MEAN CELL VOLUME 97.6 fl (80.0-94.0); MEAN CORPUSCULAR HGB 31.5 pg (27.0-31.0); MEAN CORPUSCULAR HGB CONC 32.3 g/dl (33.0-37.0); MEAN PLATELET VOLUME 10.1 fl (9.6-12.3); MONO # 0.8 10*3/uL (0.1-1.0); MONO % 11.5 % (3.0-9.0); NEUT # 5.6 10*3/uL (2.3-7.9); NEUT % 79.5 % (47.0-73.0); NUCLEATED RED BLOOD CELL 0.1 10*3/uL (0.0-0.0); NUCLEATED RED BLOOD CELL 0.9 % (0.0-0.0); PLATELET COUNT AUTOMATED 171 10*3/uL (130-400); RED BLOOD COUNT 2.86 10*6/uL (4.50-5.90); RED CELL DISTRI WIDTH 17.4 % (0-14.5); WHITE BLOOD COUNT 7.1 10*3/uL (4.8-10.8)
[2017-06-19 07:38] LABS: INTERNATIONAL NORM RATIO 3.1 (2.0-3.5)
[2017-06-19 07:40] LABS: CREATININE 4.14 mg/dL (0.70-1.30); PHOSPHOROUS 3.9 mg/dL (2.5-4.9); POTASSIUM 3.8 mmol/L (3.5-5.1)
[2017-06-19 08:00] VITALS: BP 167/74
[2017-06-19 08:13] LABS: HEPATITIS B SURFACE AG Negative (Negative); HEPATITIS C VIRUS ANTIBODY <0.1 s/co (0.0-0.9)
--- NOTE | 2017-06-19 09:17 | NUR ---
PATIENT GIVEN TYLENOL PER REQUEST FOR PELVIS PAIN RATED 8/10 AND DESCRIBED CONSTANTLY ACHING. WILL CONTINUE TO MONITOR AND REASSESS.
--- NOTE | 2017-06-19 09:43 | NUR ---
PHYSICAL THERAPY Patient was out of room for am dialysis treatment and unavailable for therapy treatment. Will continue this pm per POC as tolerated. Ronald Steinberg, REVERBERATORY SKIMMER
--- NOTE | 2017-06-19 10:17 | NUR ---
PRN TYLENOL WAS EFFECTIVE. PATIENT VERBALIZES THAT PAIN IS ONLY A 3/10 ON THE PAIN SCALE. PATIENT HAS BEEN IN AND OUT OF SLEEP.
[2017-06-19 12:00] VITALS: BP 144/61
--- NOTE | 2017-06-19 14:46 | NUR ---
PATIENT IS SITTING UP IN BED. PATIENT TOLERATED DIALYSIS WELL AND DENIES AND PAIN, DISCOMFORT, OR WEAKNESS. WOUND DRESSINGS CHANGED. PATIENT RECEIVING 2LPM VIA NC, LUNGS DIMINISHED BILATERALLY. HOB ELEVATED. CALL LIGHT WITHIN REACH. PATIENT ENCOURAGED TO ASK FOR ASSIST UPON AMBULATION.
[2017-06-19 16:00] VITALS: BP 147/56
--- NOTE | 2017-06-19 18:44 | NUR ---
PATIENT IS SITTING AT THE BEDSIDE. PATIENT IS ABLE TO AMBULATE WITH ASSIST. PATIENT IS A&OX3. PATIENT HAS WOUNDS ON THE RT POST CALF AND FRANCES. PATIENT HAS BEEN LETHARGIC AND SLEEPING THROUGHOUT THE DAY. PATIENT HAS NO FURTHER REQUESTS AT THIS TIME. CALL LIGHT IS WITHIN REACH.
--- NOTE | 2017-06-19 19:45 | NUR ---
NOTIFIED DR ALCARAZ THAT PATIENTS INR WAS 3.1 AND THAT HE IS SCHEDULED TO HAVE COUMADIN 3MG THIS EVENING. DR. ALCARAZ STATED TO HOLD THE COUMADIN FOR ONE NIGHT.
[2017-06-19 20:00] VITALS: BP 146/52
--- NOTE | 2017-06-19 22:22 | NUR ---
COUMADIN HELD THIS EVENING D/T INR=3.1 AND ORDER WAS RECEIVED TO HOLD THE DOSE X1.
[2017-06-20] VITALS: BP 124/51
[2017-06-20 07:02] LABS: BASO % 0.4 % (0.0-1.0); EOS # 0.1 10*3/uL (0.0-0.4); EOS % 1.3 % (1.0-4.0); HEMATOCRIT 28.6 % (42.0-52.0); HEMOGLOBIN 9.3 g/dl (14.0-18.0); LYMPH # 0.4 10*3/uL (1.3-4.4); LYMPH % 6.2 % (27.0-41.0); MEAN CELL VOLUME 97.6 fl (80.0-94.0); MEAN CORPUSCULAR HGB 31.7 pg (27.0-31.0); MEAN CORPUSCULAR HGB CONC 32.5 g/dl (33.0-37.0); MEAN PLATELET VOLUME 9.5 fl (9.6-12.3); MONO # 0.9 10*3/uL (0.1-1.0); NEUT # 5.2 10*3/uL (2.3-7.9); NEUT % 77.2 % (47.0-73.0); NUCLEATED RED BLOOD CELL 0.6 % (0.0-0.0); PLATELET COUNT AUTOMATED 179 10*3/uL (130-400); RED BLOOD COUNT 2.93 10*6/uL (4.50-5.90); RED CELL DISTRI WIDTH 17.8 % (0-14.5); WHITE BLOOD COUNT 6.8 10*3/uL (4.8-10.8)
[2017-06-20 07:43] LABS: INTERNATIONAL NORM RATIO 3.3 (2.0-3.5)
[2017-06-20 08:00] VITALS: BP 122/43
[2017-06-20 08:36] LABS: CREATININE 4.83 mg/dL (0.70-1.30); POTASSIUM 3.9 mmol/L (3.5-5.1)
--- NOTE | 2017-06-20 09:29 | NUR ---
PHYSICAL THERAPY Patient refused therapy today due to getting ready to go to dialysis treatment. Daniele White SIX SIGMA BLACK BELT ENGINEER
--- NOTE | 2017-06-20 10:52 | NUR ---
PHYSICAL THERAPY Orders received, patient has orders prior and has been evaluated and on daily treat list. Thank you for this referral. Ofe Hayden,PT
[2017-06-20 12:00] VITALS: BP 137/46
--- NOTE | 2017-06-20 13:42 | NUR ---
Dr Diaz stopped in case management office, stated that every thing at [facility] was set up for patient, that he would go to Dialysis on , and Sat, but didn't know what time, case management called [facility], spoke to Mychal, he stated that his staff talked to patient and informed him that he needed to be at [facility] on Saturday at 6am, case management will follow for any other needs
[2017-06-20 16:00] VITALS: BP 142/48
[2017-06-20 20:00] VITALS: BP 145/63
--- NOTE | 2017-06-20 22:37 | NUR ---
PATIENT IS RESTING IN THE BEDSIDE CHAIR. PATIENT DENIES ANY PAIN OR DISCOMFORT AT THIS TIME. PATIENT HAS A FISTULA IN THE RIGHT ARM THAT IS POSITIVE FOR BRUIT AND THRILL. PATIENT IS ABLE TO AMBULATE WITH A CANE. PATIENT DENIES DIZZINESS OR SOB. PATIENT REORIENTED TO THE ROOM AND CALL LIGHT SYSTEM. SEE SHIFT ASSESSMENT.
--- NOTE | 2017-06-20 23:49 | NUR ---
PATIENT IS RESTING IN THE BEDSIDE CHAIR. PATIENT DENIES AND PAIN OR DISCOMFORT AT THIS TIME. PATIENT DENIES ANY SOB AT THIS TIME BUT HAS NC ON 2LPM AT THE BEDSIDE NEEDED. PATIENT CAN AMBULATE WITH A CANE AND MINIMAL ASSISTANCE. PATIENT DENIES ANY DIZZINESS. CALL LIGHT IS WITHIN REACH.
[2017-06-21] VITALS: BP 118/50
--- NOTE | 2017-06-21 06:30 | NUR ---
patient is resting in the bedside chair. patient has been able to sleep throughout the night. patient is a&ox3 and ambulatory with a cane. patient denies any pain or discomfort. patient has three wounds on the right leg that have wound dressings and compression stocking on. patient has no further requests at this time. call light within reach. see shift assessment.
[2017-06-21 06:53] LABS: HEMATOCRIT 26.9 % (42.0-52.0); HEMOGLOBIN 8.8 g/dl (14.0-18.0); MEAN CELL VOLUME 95.7 fl (80.0-94.0); MEAN CORPUSCULAR HGB 31.3 pg (27.0-31.0); MEAN CORPUSCULAR HGB CONC 32.7 g/dl (33.0-37.0); MEAN PLATELET VOLUME 9.6 fl (9.6-12.3); NUCLEATED RED BLOOD CELL 0.1 10*3/uL (0.0-0.0); NUCLEATED RED BLOOD CELL 0.8 % (0.0-0.0); PLATELET COUNT AUTOMATED 179 10*3/uL (130-400); RED BLOOD COUNT 2.81 10*6/uL (4.50-5.90); RED CELL DISTRI WIDTH 17.6 % (0-14.5); WHITE BLOOD COUNT 6.7 10*3/uL (4.8-10.8)
[2017-06-21 07:18] LABS: CREATININE 4.45 mg/dL (0.70-1.30)
[2017-06-21 07:22] LABS: INTERNATIONAL NORM RATIO 2.8 (2.0-3.5)
[2017-06-21 08:03] LABS: BASOPHILS 2 % (0-1); TOTAL CELLS COUNTED 100 #CELLS
[2017-06-21 08:04] LABS: POLYCHROMASIA SLIGHT
[2017-06-21 08:05] VITALS: BP 132/48
[2017-06-21 08:05] LABS: PLATELET SUFFICIENCY NORMAL (NORMAL)
--- NOTE | 2017-06-21 09:00 | NUR ---
case management visits with patient, discussed with him if dialysis called him and talked to him about what time to be there, patient stated they had talked to him yesterday and that his will take him, patient denies any other home needs
--- NOTE | 2017-06-21 11:29 | NUR ---
PHYSICAL THERAPY Patient seen this am 1:1 for therapy sitting EOB upon therapist arrival and reports chronic R knee pain. Patient transfers sit to stand Min/CGA and ambulates with use of st cane, 75' x 1, demonstrating increaed fatigue and mild SOB, with slow fox / decreased stride. Patient needed v/c for safe step sequence and returnd to EOB sit, followed by instruction to improve sit to stand transfer. Patient now able to complete several sit to stand transfers with only single hand push and decreaed c/o of R knee pain secondary to improved transfer technique. Patient remained seated EOB with call light, telephone and tray table. Will continue per POC as tolerated. Ronald Steinberg, RN HEART
[2017-06-21 12:00] VITALS: BP 126/48
[2017-06-21] MEDS ORDERED: Synthroid,Levo25 MCG PO (13:03)
[2017-06-21] MEDS ORDERED: LEVEMIR100 UNIT/1 SC (13:03)
--- NOTE | 2017-06-21 14:20 | NUR ---
Occupational Therapy referral received 06/20/17 and attempted 06/21/17. Nurse in the room with patient and reported patient was bein discharged to home. No OT evaluation provided d/t d/c. Kalee Mcduffie OTR/ash
--- NOTE | 2017-06-21 14:23 | NUR ---
PT REFUSED DISCHARGE PICTURES PER PATIENT HE DIDN'T WANT ME "FUSSING WITH IT"
--- NOTE | 2017-06-21 15:22 | NUR ---
PT AND EDUCATED ON LOW SOIDUM, RENAL DIET AND 1200CC FLUID RESTRICTION. INFORMATION PACKETS GIVEM AND DISCUSEED THROUGHOULY WITH FAMILY, PT AND VERBALIZED UNDERSTANDING.
--- NOTE | 2017-06-21 15:23 | NUR ---
Discharge instructions reviewed with patient/family. Patient receptive and verbalizes understanding. Follow-up care arranged. Written instructions given to patient/family. ROMERO CASTELLON
--- NOTE | 2017-06-21 16:29 | NUR ---
PHYSICAL THERAPY CO-SIGN I approve of the Phyical Therapy notes written above. DIANA ANAYA PT
== END 2017-06-21 15:23 | disposition home or self-care (01) | DRG 291 ==
LOC: ED 13:53 → 5E 16:01 → EDHOLD 16:01 → 5E 16:19
PROVIDERS: Emergency Medicine; Family Medicine; Hospitalist; Internal Medicine; Internal Medicine Nephrology; Registered Nurse; Student in an Organized Health Care Education/Training Program; ADMIT Internal Medicine
PROC: 30253N1 (ICD-10-PCS; principal; 2017-06-18)
PROC: 5A1D70Z Performance of Urinary Filtration, Intermittent, Less than 6 Hours Per Day (ICD-10-PCS; 2017-06-19)
PROC: 5A1D70Z Performance of Urinary Filtration, Intermittent, Less than 6 Hours Per Day (ICD-10-PCS; 2017-06-20)
DX: I13.2 Hypertensive heart and chronic kidney disease with heart failure and with stage 5 chronic kidney disease, or end stage renal disease (principal); I50.33 Acute on chronic diastolic (congestive) heart failure; E44.0 Moderate protein-calorie malnutrition; E11.22 Type 2 diabetes mellitus with diabetic chronic kidney disease; E11.40 Type 2 diabetes mellitus with diabetic neuropathy, unspecified; E66.01 Morbid (severe) obesity due to excess calories; I25.810 Atherosclerosis of coronary artery bypass graft(s) without angina pectoris; I48.0 Paroxysmal atrial fibrillation; E11.65 Type 2 diabetes mellitus with hyperglycemia; Z68.42 Body mass index [BMI] 45.0-49.9, adult; N18.4 Chronic kidney disease, stage 4 (severe); M10.9 Gout, unspecified; F32.9 Major depressive disorder, single episode, unspecified; E78.2 Mixed hyperlipidemia; N40.0 Benign prostatic hyperplasia without lower urinary tract symptoms; E55.9 Vitamin D deficiency, unspecified; K21.9 Gastro-esophageal reflux disease without esophagitis; D63.1 Anemia in chronic kidney disease; Z79.4 Long term (current) use of insulin; Z79.01 Long term (current) use of anticoagulants; Z98.890 Other specified postprocedural states; Z88.8 Allergy status to other drugs, medicaments and biological substances; Z91.048 Other nonmedicinal substance allergy status; Z79.899 Other long term (current) drug therapy; Z87.01 Personal history of pneumonia (recurrent); Z90.49 Acquired absence of other specified parts of digestive tract; Z90.89 Acquired absence of other organs; Z95.2 Presence of prosthetic heart valve; Z87.891 Personal history of nicotine dependence; Z82.49 Family history of ischemic heart disease and other diseases of the circulatory system; Z83.3 Family history of diabetes mellitus; Z80.42 Family history of malignant neoplasm of prostate; Z84.89 Family history of other specified conditions; Z95.1 Presence of aortocoronary bypass graft

== ENCOUNTER 2017-07-03 11:41 | Inpatient (IN) | payer OTHER ==
[~2017-07-03] VITALS: Ht 177.8 cm; Wt 127.6 kg
--- NOTE | ~2017-07-03 | PR ---
[place], [place] PROGRESS NOTE NAME: BRENDAN HARTMAN UNIT #: [id number] ROOM: 509 DOCTOR: BHARAT CALVILLO MD BIRTHDATE: [birth year] DOS: 07/08/2017 REASON FOR VISIT: Mechanical heart valve and subtherapeutic INR. SUBJECTIVE: The patient is feeling better. Denies any chest pain, shortness of breath or palpitation. No dizziness. Still complaining of some left knee pain. REVIEW OF SYSTEMS: Review of the 8 systems negative except as mentioned above. RHYTHM STRIPS: Patient in sinus rhythm. PHYSICAL EXAMINATION: VITAL SIGNS: Reviewed. GENERAL: Alert, comfortable, in no acute distress. NECK: Supple, no distended neck veins, no carotid bruit. CHEST: Symmetrical, nontender. LUNGS: Clear to auscultation bilaterally. HEART: Regular rhythm, no S3, second heart is a mechanical sound, grade 1/6 systolic murmur. ABDOMEN: Benign, nontender. Bowel sounds normal. EXTREMITIES: Showed no edema. Distal pulses are palpable. SKIN: Warm and dry. No cyanosis, no clubbing. NEUROLOGIC: Patient is alert, oriented. No focal neurologic deficit. IMPRESSION: 1. History of mechanical aortic valve. 2. Anemia. 3. Hypertension. 4. Left knee pain due to fall. RECOMMENDATIONS: 1. Continue current medications. 2. Keep INR 2-3 and continue heparin until INR greater than 2. 3. No further cardiac testing. [place], [place] PROGRESS NOTE NAME: BRENDAN HARTMAN UNIT #: [id number] ROOM: 509 DOCTOR: BHARAT CALVILLO MD BIRTHDATE: [birth year] BHARAT CALVILLO MD CM:PNTRANS 30 9 BHARAT CALVILLO MD 07/09/17150 interface
--- NOTE | ~2017-07-03 | CON ---
[place], [place] REPORT OF CONSULTATION [id number] UN[facility] #: [id number] ROOM: 509 DOCTOR: KARLI JENNINGS,BHARAT BIRTHDATE: [birth year] DOS: 07/06/2017 REASON FOR CONSULTATION: Anticoagulation patient with mechanical heart valve. Clinical History: The patient is a 67-year-old gentleman with history of mechanical aortic valve, end-stage renal disease, paroxysmal atrial fibrillation, presented to the Emergency Room after a fall. He was recently discharged from the hospital for CHF, renal failure and he was started on hemodialysis. Apparently, he lost his balance when he was trying to move into his car and then he fell, but denies any head injury or any loss of consciousness. He was brought to the Emergency Room and admitted to the hospital because of his hyperkalemia and also anemia. His Coumadin was reversed due to elevated INR and his INR was subtherapeutic and he was started on heparin per my recommendation. The Cardiology consulted for his valvular heart disease and subtherapeutic INR. He denies any chest pain or shortness of breath. No palpitation. No dizziness. No edema. No orthopnea. No PND. No fever and chills. No nausea, vomiting, diarrhea. REVIEW OF SYSTEMS: Review of the 8 systems negative except as mentioned above. PAST MEDICAL HISTORY: 1. Valvular heart disease. 2. Hypertension. 3. Diabetes type 2. 4. Paroxysmal atrial fibrillation. 5. Anemia. 6. Chronic kidney disease. 7. Morbid obesity. PAST SURGICAL HISTORY: History of aortic valve replacement, mechanical valve about 15 years ago, details unknown. ALLERGIES: Reviewed. The patient is allergic to LIPITOR, GABAPENTIN AND TAPE. SOCIAL HISTORY: The patient does not smoke, does not use illicit drugs. FAMILY HISTORY: Noncontributory. MEDICATIONS: Reviewed. PHYSICAL EXAMINATION: VITAL SIGNS: Blood pressure 110/46, pulse 66, respiratory rate was 18. GENERAL: Alert, comfortable, in no acute distress. NECK: Supple. No distended neck veins. No carotid bruits. CHEST: Symmetrical, nontender. LUNGS: ____ scattered rhonchi. HEART: Regular rhythm. No S3. Second heart sound is mechanical sound, grade 1/6 systolic murmur. ABDOMEN: Morbidly obese, distended, nontender, bowel sounds normal. EXTREMITIES: Showed 1+ edema. Distal pulses are palpable. [place], [place] REPORT OF CONSULTATION NAME: BRENDAN HARTMAN UNIT #: [id number] ROOM: 509 DOCTOR: KARLI JENNINGS,BHARAT BIRTHDATE: [birth year] SKIN: Warm and dry. No cyanosis. No clubbing. NEUROLOGIC: The patient is alert, oriented. No focal neurologic deficit. RECTAL: Deferred. GENITOURINARY: Deferred. REVIEW OF THE DIAGNOSTIC TESTS: EKG shows sinus rhythm with right bundle-branch block. CBC: Hemoglobin 8.2. INR 1.6. BUN 75, creatinine 7.9. IMPRESSION: 1. Subtherapeutic INR. 2. History of mechanical aortic valve replacement, with normally functioning valve by exam and his echo. 3. Valvular heart disease, mild mitral and tricuspid regurgitation by echo. 4. End-stage renal disease, on hemodialysis. 5. Right bundle-branch block. 6. Anemia. 7. Paroxysmal atrial fibrillation. 8. Obesity. 9. Left knee pain. RECOMMENDATIONS: 1. Continue heparin until INR is therapeutic. 2. Blood pressure and heart rates are stable. 3. No further cardiac testing at this time. 4. Risk factor modification was discussed. 5. SBE prophylaxis for his mechanical aortic valve. BHARAT CALVILLO MD CM:CONSTR:REPORT OF CONSULTATION 1105 07/07/172033 interface
--- NOTE | ~2017-07-03 | PR ---
[place], [place] PROGRESS NOTE NAME: BRENDAN HARTMAN UNIT #: [id number] ROOM: 509 DOCTOR: TRINI HOOD MD BIRTHDATE: [birth year] DOS: NEPHROLOGY PROGRESS NOTE SUBJECTIVE: The patient is sitting upright. He is doing well overall. Denies any chest pains, nausea or vomiting. He is for discharge for [place] today. We underwent dialysis yesterday to switch him over from a Saturday, , Saturday to Saturday, Saturday, and Saturday schedule. OBJECTIVE: VITAL SIGNS: 97.5, 76-101, 17-20, 98-118/55-85, pulse ox 93%-96% on 2 liters nasal cannula. GENERAL: He is awake, alert, sitting upright in bed; essentially obese with distended abdomen chronically. HEENT: Extraocular muscles are intact. Sclerae anicteric. Oropharynx is clear. Mucous membranes are dry, nasal cannula oxygen is place. LUNGS: Without diffuse wheeze, decreased air entry bilaterally. LABORATORIES AND DIAGNOSTICS: Reviewed from the past days, nothing today. ASSESSMENT AND PLAN: 1. End-stage renal disease, hemodialysis. We will continue on a Saturday, Saturday, Saturday schedule now as he is going to [facility]. Continue followup and encourage rehabilitation. Medications will be dosed for GFR of less than 10. 2. Low-dose Reglan was started for gastroparesis and a history of gastric bezoar. Seems to be picking up a little bit day by day in terms of strength. 3. Hyperphosphatemia. Continue on PhosLo. Continue ____. 4. Anemia. Monitor with Aranesp at the dialysis center and follow serially. 5. Hypertension and congestive heart failure, status post valve replacements, on Coumadin. Anticoagulation levels are stable. Continue followup at [place]. TRINI HOOD MD CM:PNTRANS [id number] TRINI HOOD MD 07/14/17 0530 interface
--- NOTE | ~2017-07-03 | PR ---
[place], [place] PROGRESS NOTE NAME: BRENDAN HARTMAN UNIT #: [id number] ROOM: 509 DOCTOR: ALISON JENNINGS,ELYSE Belcher BIRTHDATE: [birth year] DOS: 07/07/2017 SUBJECTIVE: The patient was seen and examined. He is awake and alert, in about to eat lunch. Denies shortness of breath, nausea or vomiting. He still has knee pain and was told he has a torn meniscus. Details are not clear. PHYSICAL EXAMINATION: VITAL SIGNS: Temperature is 97.4, pulse 72, respiratory rate 18, blood pressure 123/45. HEENT: Shows no JVD. LUNGS: Diminished breath sounds. No wheeze. HEART: Normal S1, S2. ABDOMEN: Soft, nontender. There is no organomegaly. EXTREMITIES: Had 1+ to 2+ edema. SKIN: Showed no overt rash. LABORATORY DATA: Hemoglobin 8.4, white count 6.1, platelets 221. Sodium 131, potassium 3.9, CO2 of 31, BUN 65, creatinine 7.2, calcium of 9.1. ASSESSMENT AND PLAN: 1. End-stage renal disease, on hemodialysis Saturday, and Saturday. The patient will have dialysis as scheduled on Saturday. 2. Anemia. We will continue erythropoietin stimulating agents with dialysis. Transfuse as felt needed. 3. Diabetes mellitus. Continue insulin. 4. Hypertension. Blood pressure is stable on current medications. ELYSE ROSAS MD CM:PNTRANS 1322 20 ELYSE ROSAS MD 07/07/172121 interface
--- NOTE | ~2017-07-03 | PR ---
[place], [place] PROGRESS NOTE NAME: BRENDAN HARTMAN UNIT #: [id number] ROOM: 509 DOCTOR: ALISON JENNINGS,ELYSE Belcher BIRTHDATE: [birth year] DOS: 07/06/2017 SUBJECTIVE: The patient was seen and examined. He is awake and alert. He had dialysis earlier and stated the treatment went well. He is lying in bed without any complaints to me. He denies shortness of breath or chest pain. PHYSICAL EXAMINATION: VITAL SIGNS: Temperature 98, pulse 68, respirations 18, blood pressure 120/60. HEENT: Shows no JVD. LUNGS: Diminished breath sounds. No wheeze. HEART: Normal S1, S2. No rub. ABDOMEN: Soft, obese, nontender. EXTREMITIES: Showed +1 edema. SKIN: Showed no rash. LABORATORY DATA: Hemoglobin 8.2, white count of 8.1, platelets of 238. Sodium 133, potassium 4.4, CO2 of 27, BUN 75, creatinine 7.9, glucose 125, calcium 8.9, albumin 2.6. IMPRESSION AND PLAN: 1. End-stage renal disease, on hemodialysis Saturday, and Saturday. The patient will continue dialysis as per his normal schedule. Next treatment will be on Saturday. 2. Anemia. Continue erythropoietin stimulating agents with dialysis. Transfuse as felt needed. 3. Diabetes mellitus. Continue insulin. 4. Hypertension. The patient's blood pressure os stable on current medications. ELYSE ROSAS MD CM:PNTRANS 17 19 ELYSE ROSAS MD 07/06/172020 interface
--- NOTE | ~2017-07-03 | PR ---
[place], [place] PROGRESS NOTE NAME: BRENDAN HARTMAN UNIT #: [id number] ROOM: 509 DOCTOR: BHARAT CALVILLO MD BIRTHDATE: [birth year] DOS: 07/07/2017 REASON FOR VISIT: Mechanical heart valve and anticoagulation. SUBJECTIVE: The patient is feeling better. Denies any chest pain, shortness of breath. No palpitations. No dizziness. Complaining of left knee pain. RHYTHM STRIPS: The patient in sinus rhythm. REVIEW OF SYSTEMS: Review of the 8 systems negative except as mentioned above. OBJECTIVE: VITAL SIGNS: Blood pressure 123/48, pulse 72, respiratory rate was 18. GENERAL: Alert, comfortable, in no acute distress. HEAD AND NECK: Supple. No distended neck veins. No carotid bruit. CHEST: Symmetrical, nontender. LUNGS: Clear to auscultation bilaterally. HEART: ____ rhythm. No S3. Second heart sound is mechanical sound, grade 1/6 systolic murmur. No palpable thrills. ABDOMEN: Obese, nontender. Bowel sounds normal. EXTREMITIES: Show trace edema. Distal pulses are palpable. ____ the left knee tenderness. SKIN: Warm and dry. No cyanosis. No clubbing. RECTAL: Deferred. GENITOURINARY: Deferred. MEDICATIONS AND ALLERGIES: Reviewed. IMPRESSION: 1. Subtherapeutic INR. 2. History of mechanical aortic valve replacement. 3. Hypertension. 4. Paroxysmal atrial fibrillation. 5. Anemia. 6. Left knee pain. 7. Mild valvular heart disease with mild mitral and ____ regurgitation. LABORATORY DATA: Hemoglobin 8.4. INR 1.2. RECOMMENDATIONS: Continue heparin until INR therapeutic at more than 2.0. Continue to monitor the heart rate and blood pressures as well as hemoglobin. No further cardiac testing. SBE prophylaxis per his mechanical aortic valve. [place], [place] PROGRESS NOTE NAME: BRENDAN HARTMAN UNIT #: [id number] ROOM: 509 DOCTOR: BHARAT CALVILLO MD BIRTHDATE: [birth year] BHARAT CALVILLO MD CM:PNTRANS 1133 1707 BHARAT CALVILLO MD 07/07/17 1708 interface
--- NOTE | ~2017-07-03 | EKG ---
[place], [place] ELECTROCARDIOGRAM REPORT NAME: BRENDAN HARTMAN UNIT #: [id number] ROOM: [facility] DOCTOR: KARLI JENNINGS,BHARAT BIRTHDATE: [birth year] DOS: 07/09/2017 TIME: 1527 hours. IMPRESSION: 1. Sinus rhythm. 2. Right bundle-branch block. 3. Left atrial enlargement. 4. Old anterior infarction. 5. Borderline prolonged QTc interval, BHARAT CALVILLO MD CM:EKGRPT:ELECTROCARDIOGRAM REPORT 1406 1430 BHARAT CALVILLO MD
[~2017-07-03 11:41] MED LIST changes: +ADVAIR 250/501 EA INH; +B-1100 M1 PO; +FERROUS SULFAT324 M2 PO; +FLONASE ALLERG9.9 ML NAS; +LEVEMIR100 UNIT/1 SC; +MOM30 M1 PO; +Synthroid,Levo25 MCG PO
[2017-07-03 11:53] VITALS: BP 124/52
--- NOTE | 2017-07-03 12:00 | NUR ---
PATIENT HAS +2 PEDAL PULSE LEFT FOOT.
--- NOTE | 2017-07-03 12:00 | NUR ---
PATIENT LEFT KNEE HAS BEEN POSITIONED FOR COMFORT ON PILLOW AT THIS TIME.
--- NOTE | 2017-07-03 12:23 | NUR ---
PATIENT HAS BEEN REPOSITINED FOR COMFORT AT THIS TIME.
[2017-07-03 12:50] LABS: BASO % 0.5 % (0.0-1.0); EOS # 0.1 10*3/uL (0.0-0.4); EOS % 0.7 % (1.0-4.0); HEMATOCRIT 27.6 % (42.0-52.0); HEMOGLOBIN 8.8 g/dl (14.0-18.0); LYMPH # 0.3 10*3/uL (1.3-4.4); LYMPH % 3.7 % (27.0-41.0); MEAN CELL VOLUME 96.8 fl (80.0-94.0); MEAN CORPUSCULAR HGB 30.9 pg (27.0-31.0); MEAN CORPUSCULAR HGB CONC 31.9 g/dl (33.0-37.0); MONO # 1.1 10*3/uL (0.1-1.0); MONO % 12.7 % (3.0-9.0); NEUT % 80.8 % (47.0-73.0); NUCLEATED RED BLOOD CELL 0.2 % (0.0-0.0); PLATELET COUNT AUTOMATED 237 10*3/uL (130-400); RED BLOOD COUNT 2.85 10*6/uL (4.50-5.90); RED CELL DISTRI WIDTH 16.6 % (0-14.5); WHITE BLOOD COUNT 8.7 10*3/uL (4.8-10.8)
[2017-07-03 13:07] LABS: ALBUMIN 2.7 gm/dl (3.1-4.5); CREATININE 8.03 mg/dL (0.70-1.30); PHOSPHOROUS 3.6 mg/dL (2.5-4.9); TOTAL PROTEIN 7.9 gm/dL (6.4-8.2)
--- NOTE | 2017-07-03 13:08 | NUR ---
CRITICAL LAB: POTASSIUM 6.[address] AT THIS TIME[address] LEVY AWARE.
[2017-07-03 13:09] LABS: POTASSIUM 6.5 mmol/L (3.5-5.1)
[2017-07-03 15:45] VITALS: BP 124/59
--- NOTE | 2017-07-03 16:18 | NUR ---
REPORT GIVEN TO DONTRELL LUCERO AT THIS TIME. PATIENT TRANSPORTED TO 5TH FLOOR BY TOM XIE.
[2017-07-03] MEDS ORDERED: WARFARIN SODIUM1 MG PO (16:29)
--- NOTE | 2017-07-03 16:45 | NUR ---
A 67, admitted to 5E, under the services of JAMAR Vela DO with a diagnosis of ATAXIA. Chief complaint is PAIN. Patient arrived via bed from ER. Monitor applied. Initial assessment completed. Vital signs taken and recorded. JAMAR VELA DO notified of admission to the unit. Orders received. See assessment for past medical history, medications and allergies. Patient and/or family oriented to unit. [facility] visitation policy reviewed. Clothing/patient valuable form completed. ASSESSMENT COMPLETE. SKIN INTACT WITH NO WOUNDS. FLU AND PNEUMONIA VACCINATIONS CURRENT. HOME MEDICATIONS VERIFIED WITH [facility], [facility]. MARIUSZ GORE NOTIFIED. CORY KELLOGG
[2017-07-03] MEDS ORDERED: METOLAZONE5 MG PO (16:46)
[2017-07-03] MEDS ORDERED: SPIRIVA -- 3018 MCG INH (16:47)
[2017-07-03 18:17] LABS: INTERNATIONAL NORM RATIO 8.5 (2.0-3.5)
--- NOTE | 2017-07-03 18:34 | NUR ---
LAB CALLED WITH CRITICAL INR OF 8.5. DR CHANEL NOTIFIED
--- NOTE | 2017-07-03 18:55 | NUR ---
SPOKE TO DR KERI LANE PT CONSULT. ORDER RECEIVED FOR STAT BMP AND TO DISCONTINUE POTASSIUM WHICH WAS ON HOLD FROM LIST OF HOME MEDICATIONS AND TO RESTART PO BUMEX FROM LIST OF HOME MEDS. CALL WITH RESULTS OF BMP
[2017-07-03 19:24] LABS: CREATININE 8.07 mg/dL (0.70-1.30); POTASSIUM 5.8 mmol/L (3.5-5.1)
--- NOTE | 2017-07-03 19:40 | NUR ---
PT. AWAKE, ALERT, AND ORIENTED X 3 AT THIS TIME. PT. ON 2L NC, CURRENTLY DENIES SOB AND CP. FISTULA IN RT. ARM + BRUIT AND THRILL. PT. WEARING ORANGE WRISTBAND FROM HOME STATING NO BP ON RT ARM. CALL LIGHT WITHIN REACH, BED IN LOWEST POSITION, WHEELS LOCKED. SEE SHIFT ASSESSMENT.
[2017-07-03 20:00] VITALS: BP 111/52
--- NOTE | 2017-07-03 20:30 | NUR ---
SPOKE WITH DR. SAAVEDRA AT THIS TIME WITH RESULTS OF PTS. BMP. PER DR. SAAVEDRA THE PT. IS OK FOR DIALYSIS TOMORROW MORNING.
--- NOTE | 2017-07-03 23:58 | NUR ---
24 HR. CHART CHECK COMPLETE.
[2017-07-04] VITALS: BP 115/48
[2017-07-04 06:45] LABS: BASO % 0.4 % (0.0-1.0); EOS # 0.1 10*3/uL (0.0-0.4); EOS % 0.6 % (1.0-4.0); HEMATOCRIT 31.5 % (42.0-52.0); HEMOGLOBIN 10.1 g/dl (14.0-18.0); LYMPH # 0.4 10*3/uL (1.3-4.4); LYMPH % 4.2 % (27.0-41.0); MEAN CELL VOLUME 95.7 fl (80.0-94.0); MEAN CORPUSCULAR HGB 30.7 pg (27.0-31.0); MEAN CORPUSCULAR HGB CONC 32.1 g/dl (33.0-37.0); MEAN PLATELET VOLUME 9.5 fl (9.6-12.3); MONO # 1.4 10*3/uL (0.1-1.0); MONO % 14.7 % (3.0-9.0); NEUT # 7.4 10*3/uL (2.3-7.9); NEUT % 78.7 % (47.0-73.0); PLATELET COUNT AUTOMATED 291 10*3/uL (130-400); RED BLOOD COUNT 3.29 10*6/uL (4.50-5.90); RED CELL DISTRI WIDTH 16.7 % (0-14.5); WHITE BLOOD COUNT 9.4 10*3/uL (4.8-10.8)
[2017-07-04 07:14] LABS: ALBUMIN 3.1 gm/dl (3.1-4.5); CREATININE 8.51 mg/dL (0.70-1.30); PHOSPHOROUS 4.1 mg/dL (2.5-4.9); POTASSIUM 5.1 mmol/L (3.5-5.1); TOTAL PROTEIN 8.9 gm/dL (6.4-8.2)
--- NOTE | 2017-07-04 07:32 | NUR ---
PT 114.[address] WEST NOTIFIED. NO NEW ORDERS RECEIVED AT THIS TIME.
[2017-07-04 07:33] LABS: INTERNATIONAL NORM RATIO 9.4 (2.0-3.5)
--- NOTE | 2017-07-04 07:55 | NUR ---
LAB RESULTS AND ORDERS REVIEWED. NO DISTRESS NOTED AT THIS TIME. PT TRANSPORTED TO DIALYSIS PER MD ORDER
[2017-07-04 08:00] VITALS: BP 109/61
--- NOTE | 2017-07-04 09:00 | NUR ---
Chief Operator Reformer in to talk to patient. Patient states lives at home with . There are few steps in the home. Physician: marti manriquez Pharmacy: [facility] Home health services: none Patient's level of ADLs: MINIMAL ASSIST Patient has working utilities: all working DME: cane Follow-up physician's appointment after d/c: will be made by hospitalist nurse director upon discharge Does patient want to access PORTAL?: no Discharge plan discussed with patient, patient lives at home with , states he hasn't been getting around very well lately and has had a fall, discussed with him a short term retirement for rehab prior to going back home and patient was receptive, he asked if case management could talk with his regarding which facility he would go to. space planner will contact patient's regarding SNF placement. LOAN WAYNE
[2017-07-04 12:00] VITALS: BP 122/68
--- NOTE | 2017-07-04 14:04 | NUR ---
PHYSICAL THERAPY PAtient evaluated on 5, full evaluation to follow. Continue with PT as per plan of care with fall, severe left knee pain and acute debilty. PAtient will require SNF for pain and inability to ambulate. Recommend ortho consult MARII. PAtient is high complexity via chart review, tests and evaluation: [id number]. Thank you for this referral. Ofe Hayden,PT
--- NOTE | 2017-07-04 14:35 | NUR ---
Ocupational Therapy evaluation completed this date on 5 with full eval to follow. Precautions include fall risk, severe left knee pain, obesity, dialysis T,TH,Sat, moderate complexity level 89440. Patient needs ortho consult for left knee. Patient reports left shoulder is painful at end range of motion but he has AROM 130 scaption and h/o recent injection for rotator cuff injury left shoulder. Recommend OT per POC and SNF upon d/c to enable return home with at [facility]. Thank you for this referral. Kalee Mcduffie OTR/L
--- NOTE | 2017-07-04 14:49 | NUR ---
SW SPOKE WITH AND PT ABOUT DISCHARGE PLANNING. WANTS A SKILED STAY AT THE [facility] OR [facility]. SECOND CHOICE WOULD BE [facility]. REHAB SUITES DO NOT HAVE ANY OPEINGS AT THIS TIME. SW WILL MAKE REFERRAL.
--- NOTE | 2017-07-04 15:04 | NUR ---
CHEL FAXED REFERRAL TO [facility].
[2017-07-04 16:00] VITALS: BP 120/66
--- NOTE | 2017-07-04 19:40 | NUR ---
PT. AWAKE, ALERT AND ORIENTED X 3 AT THIS TIME. PT. IN BED AT THIS TIME. PT. DENIES CP, SOB OR PAIN AT THIS TIME. CALL LIGHT WITHIN REACH, BED IN LOWEST POSITION, WHEELS LOCKED. SEE SHIFT ASSESSMENT.
[2017-07-04 20:00] VITALS: BP 116/64
--- NOTE | 2017-07-04 21:33 | NUR ---
PT. REFUSING LEVEMIR AT THIS TIME D/T CURRENT BS - 133 AND LACK OF INTAKE THIS EVENING. PT. STATED THAT HE THINKS IT MIGHT BOTTOM HIM OUT, AND WOULD RATHER WAIT UNTIL THE MORNING TO SEE IF HE NEEDS COVERAGE.
--- NOTE | 2017-07-04 21:43 | NUR ---
PT. REQUESTED MORPHINE AT THIS TIME FOR LEFT LEG PAIN 03/14. MORPHINE ADM. AT THIS TIME. WILL MONITOR FOR EFFECTIVENESS.
--- NOTE | 2017-07-04 22:15 | NUR ---
PT. CURRENTLY DENIES PAIN AT THIS TIME. MORPHINE EFFECTIVE.
[2017-07-05] VITALS: BP 102/82
--- NOTE | 2017-07-05 00:28 | NUR ---
PT. ADM. TYLENOL AT THIS TIME FOR TEMP - 99.2. WILL CONTINUE TO MONITOR FOR EFFECTIVENESS.
--- NOTE | 2017-07-05 06:33 | NUR ---
SPOKE WITH DR. KNOWLES AT THIS TIME, PER DR. KNOWLES, ORDER ECHOCARDIOGRAM FOR TODAY.
[2017-07-05 07:03] LABS: ALBUMIN 2.8 gm/dl (3.1-4.5); CREATININE 6.41 mg/dL (0.70-1.30); PHOSPHOROUS 5.2 mg/dL (2.5-4.9); POTASSIUM 4.2 mmol/L (3.5-5.1)
[2017-07-05 07:09] LABS: INTERNATIONAL NORM RATIO 4.3 (2.0-3.5)
[2017-07-05 08:00] VITALS: BP 148/55
--- NOTE | 2017-07-05 08:00 | NUR ---
LAB RESULTS AND ORDERS REVIEWED. PT RESTING IN BED. PT REQUEST ASSISTANCE TO BSC. NO DISTRESS NOTED AT THIS TIME.
--- NOTE | 2017-07-05 08:26 | NUR ---
PT COMPLAINS OF LLE PAIN 03/14. MEDICATED WITH GOOD EFFECT. SEE EMAR
--- NOTE | 2017-07-05 09:42 | NUR ---
PHYSICAL THERAPY Mr Haynes seen this AM X 2, for his physical therapy session. Ask me to come back later today. When i stopped back Pt sleeping and breakfast in at this time. RUBEN OLIVAREZ ROOF BOLTER HELPER.
--- NOTE | 2017-07-05 09:43 | NUR ---
case management visits with patient, patient has been referred to the [facility], patient will need an insurance precert prior to going
--- NOTE | 2017-07-05 10:30 | NUR ---
PT BLADDERSCANNED PER MARIUSZ GORE REQUEST DUE TO COMPLAINTS OF DIFFICULTY WITH URINATION. 50CC-60CC NOTED. PT TOLERATED WELL. RN NOTIFIED SOFÍA
--- NOTE | 2017-07-05 11:01 | NUR ---
JOCY RECEIVED FROM [facility] CARIDAD. FERNIE INQUIRED IF /FAMILY BE WALKER TO TRANSPORT TO DIALYSIS. SW WILL ASK BUT SW FEELS THAT WOULD NOT BE ABLE TO DUE TO A RECENT SURGERY THAT SHE HAD. F[facility]IE IS HAVING TROUBLE WITH TRANSPORTATION AT FACILITY AT THIS TIME. SW WILL LET FERNIE KNOW WHAT FAMILY SAYS ABOUT TRANSPORTATION.
[2017-07-05 12:00] VITALS: BP 123/71
--- NOTE | 2017-07-05 12:15 | NUR ---
PT TRANSPORTED FOR MRI VIA [facility].
--- NOTE | 2017-07-05 13:30 | NUR ---
ADMINISTERED IV MORPHINE PER PT REQUEST FOR LEFT KNEE PAIN RATED 10/10. WILL MONITOR FOR EFFECTIVENESS
--- NOTE | 2017-07-05 13:31 | NUR ---
PHYSICAL THERAPY PAtient just returned from MRI, having pain and no lunch yet. Alerted nurse about pain for possible medication and will return to attempt PT later this date so patient can relax and eat lunch. Ofe Hayden ,PT
--- NOTE | 2017-07-05 14:52 | NUR ---
Pt was seen in OT x 15 minutes beginning with AE educations/instructions to improve ADL tasks. MERRY demonstrated renal dialysis rn, LHSH, LH sponge and sock aid to enhance dressing & bathing skills. Pt declined trying AE but stated he "has a renal dialysis rn" at home. Pt very "fatigued" & not willing to "get out of bed" this pm. Call light within reach. Cont with POC. Pura SOUSA/Raheem
--- NOTE | 2017-07-05 15:18 | NUR ---
OCCUPATIONAL THERAPY CO-SIGN I approve of the Occupational Therapy notes written above. LETTY PHOENIX OTR/Raheem
--- NOTE | 2017-07-05 15:29 | NUR ---
PHYSICAL THERAPY PAtient treated this date 1:1 with PT x 24 minutes. Bed mobility and rolling right to left to right mod (A) x 1, mod cues seqeunce/safety/proper UE/LE placement. Transfers supine to stand to supine, mod (A) x 2, max cues seqeunce/safety/proper UE/LE placement and encouragement. Assist needed for L LE with all activities. Standing at walker 1 minute 2 times, mod (A) x 2, swaying and attempted weight shifts to progress to ambulation. Attempted 1 step: unable to progress L LE- full assist for L LE progression and unable to step with R LE secondary to severe cpomplaints of pain left knee. Mutliple sit to stand to sit transfers mod (A) x 2 as above, each trial requires multiple attempts to achieve upright posture. Moderate fatigue and significant left knee pain 10/10 with all mobility. Recently medicated. Returned to bed with call light in place as prior to treatment. Continue with PT as per original plan of care. Continue to recommend ortho consult MARII as left knee pain is limiting all functional mobility. Will require SNF in order to return to home at [facility]. Ofe Hayden,PT
[2017-07-05 16:00] VITALS: BP 142/59
[2017-07-05 20:00] VITALS: BP 93/66
--- NOTE | 2017-07-05 22:23 | NUR ---
PATIENT MEDICATED WITH PRN MORPHINE ORDERED FOR C/O LEFT KNEE PAIN RATED AN 8/10. PATIENT IS LYING IN BED, NO FURTHER VOICED COMPLAINTS. SEE ASSESSMENT. CALL LIGHT IS IN REACH.
--- NOTE | 2017-07-05 23:30 | NUR ---
PATIENT STATES EARLIER MORPHINE WAS EFFECTIVE.
[2017-07-06] VITALS: BP 121/52
--- NOTE | 2017-07-06 02:29 | NUR ---
PATIENT UP TO [facility] COMMODE AT THIS TIME WITH X3 ASSIST.
--- NOTE | 2017-07-06 02:47 | NUR ---
PATIENT MEDICATED WITH PRN MORPHINE ORDERED FOR C/O LEFT KNEE PAIN RATED A 9/10.
--- NOTE | 2017-07-06 03:01 | NUR ---
24 HOUR CHART CHECK COMPLETE
--- NOTE | 2017-07-06 03:45 | NUR ---
EARLIER MORPHINE APPEARS EFFECTIVE. PATIENT SLEEPING. NO SXS OF DISTRESS.
--- NOTE | 2017-07-06 05:01 | NUR ---
PATIENT RESTING QUIETLY IN BED. NO SXS OF DISTRESS. RESPIRATIONS EASY/REG. CALL LIGHT IS IN REACH.
[2017-07-06 06:06] LABS: BASO % 0.4 % (0.0-1.0); EOS % 0.2 % (1.0-4.0); HEMOGLOBIN 8.2 g/dl (14.0-18.0); LYMPH # 0.4 10*3/uL (1.3-4.4); LYMPH % 4.8 % (27.0-41.0); MEAN CELL VOLUME 95.8 fl (80.0-94.0); MEAN CORPUSCULAR HGB 31.1 pg (27.0-31.0); MEAN CORPUSCULAR HGB CONC 32.4 g/dl (33.0-37.0); MEAN PLATELET VOLUME 9.4 fl (9.6-12.3); MONO # 1.5 10*3/uL (0.1-1.0); MONO % 18.6 % (3.0-9.0); NEUT % 74.4 % (47.0-73.0); PLATELET COUNT AUTOMATED 238 10*3/uL (130-400); RED BLOOD COUNT 2.64 10*6/uL (4.50-5.90); RED CELL DISTRI WIDTH 16.5 % (0-14.5); WHITE BLOOD COUNT 8.1 10*3/uL (4.8-10.8)
[2017-07-06 06:11] LABS: HEMATOCRIT 25.3 % (42.0-52.0)
[2017-07-06 06:22] LABS: ALBUMIN 2.6 gm/dl (3.1-4.5); CREATININE 7.91 mg/dL (0.70-1.30); POTASSIUM 4.4 mmol/L (3.5-5.1); TOTAL PROTEIN 8.1 gm/dL (6.4-8.2)
[2017-07-06 06:32] LABS: INTERNATIONAL NORM RATIO 1.6 (2.0-3.5)
[2017-07-06 08:00] VITALS: BP 110/48
--- NOTE | 2017-07-06 08:00 | NUR ---
PATIENT ASSESSED IN DIALYSIS. DENIES DISCOMFORT AT THIS TIME. VOICES NO COMPLAINTS.
--- NOTE | 2017-07-06 10:00 | NUR ---
DR CALVILLO IS AWARE OF CONSULT BECAUSE HE SPOKE WITH DR DE JESUS.
--- NOTE | 2017-07-06 10:24 | NUR ---
NOTIFIED DR DE JESUS THAT HEPARIN HAS NOT BEEN STARTED BECAUSE WE ARE WAITING ON DR FERGUSON FOR PERMISSION TO RUN HEPARIN DURING DIALYSIS.
--- NOTE | 2017-07-06 11:02 | NUR ---
OT DAILY NOTE OT ATTEMPTED THIS AM. PT OFF OF THE FLOOR FOR DIALYSIS. CONTINUE PLAN OF CARE. STEVEN LOPEZ/Raheem
--- NOTE | 2017-07-06 11:02 | NUR ---
PHYSICAL THERAPY Patient just returned from dialysis and is very weak and tired. Informed by his nurse that his blood pressure is running low. Patient states he does not want to participate in therapy session this Leah Mariscal CLAY WORKER
[2017-07-06 12:00] VITALS: BP 110/46
--- NOTE | 2017-07-06 15:53 | NUR ---
C/O PAIN TO TAILBONE OF 04/14. REQUESTED IV MORPHINE WHICH WAS GIVEN AT THIS TIME. WILL CONT TO MONITOR. CALL LIGHT IN REACH.
[2017-07-06 15:59] VITALS: BP 120/60
--- NOTE | 2017-07-06 16:53 | NUR ---
MORPHINE EFF PER PT. WILL CONT TO MONITOR.
--- NOTE | 2017-07-06 19:23 | NUR ---
HEPARIN DRIP INCREASED PER PROTOCOL
[2017-07-06 20:00] VITALS: BP 112/48
--- NOTE | 2017-07-06 20:00 | NUR ---
PT. IS CURRENTLY RESTING IN BED WATCHING TV AT THIS TIME, NO DISTRESS OR COMPLAINTS NOTED AT THIS TIME. NC ATTACHED AND DELIVERING 2L, CALL LIGHT IS WITHIN REACH, WHEELS ARE LOCKED AND BED IS LOW. SEE SHIFT ASSESSMENT.
--- NOTE | 2017-07-06 20:32 | NUR ---
PRN MORPHINE GIVEN FOR PT. C/O LEFT KNEE PAIN RATING A 8/10, CALL LIGHT WITHIN REACH WILL MONITOR EFFECT.
--- NOTE | 2017-07-06 21:00 | NUR ---
PRN MORPHINE SEEMS EFFECTIVE PT. IS SLEEPING COMFORTABLY WITH EASY AND REGULAR RESPERS.
--- NOTE | 2017-07-06 23:17 | NUR ---
24 HR chart check completed.
[2017-07-07] VITALS: BP 128/53
[2017-07-07 01:20] VITALS: BP 105/59
[2017-07-07 06:38] LABS: HEMATOCRIT 25.7 % (42.0-52.0); HEMOGLOBIN 8.4 g/dl (14.0-18.0); MEAN CELL VOLUME 95.9 fl (80.0-94.0); MEAN CORPUSCULAR HGB 31.3 pg (27.0-31.0); MEAN CORPUSCULAR HGB CONC 32.7 g/dl (33.0-37.0); MEAN PLATELET VOLUME 9.5 fl (9.6-12.3); PLATELET COUNT AUTOMATED 221 10*3/uL (130-400); RED BLOOD COUNT 2.68 10*6/uL (4.50-5.90); RED CELL DISTRI WIDTH 16.2 % (0-14.5); WHITE BLOOD COUNT 6.1 10*3/uL (4.8-10.8)
[2017-07-07 06:45] LABS: ACT PARTIAL THROMBO TIME 50.7 SECONDS (20.8-31.5); INTERNATIONAL NORM RATIO 1.2 (2.0-3.5)
[2017-07-07 07:02] LABS: BASOPHILS 1 % (0-1); PLATELET SUFFICIENCY NORMAL (NORMAL); POLYCHROMASIA SLIGHT; TOTAL CELLS COUNTED 100 #CELLS
[2017-07-07 07:08] LABS: CREATININE 7.15 mg/dL (0.70-1.30); POTASSIUM 3.9 mmol/L (3.5-5.1)
[2017-07-07 08:00] VITALS: BP 123/45
--- NOTE | 2017-07-07 08:37 | NUR ---
PATIENT RESTING IN BED. VOICES NO COMPLAINTS AT THIS TIME. BED IS IN LOW POSITION. CALL LIGHT IS WITHIN REACH.
--- NOTE | 2017-07-07 10:11 | NUR ---
MORPHINE 2MG IV GIVEN PER PATIENT REQUEST FOR TAILBONE PAIN RATING A 9/10.
[2017-07-07 12:00] VITALS: BP 105/59
--- NOTE | 2017-07-07 14:22 | NUR ---
PTT IS 54.3. NO CHANGE TO HEPARING DRIP. REDRAW PTT AT 0530 ON 07/08/17.
[2017-07-07 16:00] VITALS: BP 100/80
[2017-07-07 20:00] VITALS: BP 120/60
--- NOTE | 2017-07-07 22:37 | NUR ---
PATIENT MEDICATED WITH PO NORCO PER PRN ORDER FOR C/O LEFT LEG PAIN 03/14. WILL MONITOR EFFECTIVENESS. CALL LIGHT LEFT IN REACH.
[2017-07-08] VITALS: BP 120/57
--- NOTE | 2017-07-08 03:07 | NUR ---
PT REQUESTED PAIN MEDICATION FOR LEFT KNEE PAIN/DISCOMFORT. PAIN IS RATED AT 10 OUT OF 10 AND DESCRIBED CONSTANT, DULL, AND ACHING. PRN MORPHINE GIVEN PER PT REQUEST. WILL CONTINUE TO MONITOR.
--- NOTE | 2017-07-08 04:01 | NUR ---
PT IN BED, EYES CLOSED RESTING/SLEEPING COMFORTABLY. PT IN NO OBVIOUS DISTRESS AT THIS TIME. PRN MORPHINE WAS EFFECTIVE. WILL CONTINUE TO MONITOR.
[2017-07-08 05:56] LABS: ACT PARTIAL THROMBO TIME 60.4 SECONDS (20.8-31.5); CREATININE 8.4 mg/dL (0.70-1.30); INTERNATIONAL NORM RATIO 1.2 (2.0-3.5); POTASSIUM 3.8 mmol/L (3.5-5.1)
[2017-07-08 06:25] LABS: BASO % 0.5 % (0.0-1.0); EOS % 0.7 % (1.0-4.0); HEMATOCRIT 25.2 % (42.0-52.0); HEMOGLOBIN 8.2 g/dl (14.0-18.0); LYMPH # 0.3 10*3/uL (1.3-4.4); LYMPH % 5.4 % (27.0-41.0); MEAN CELL VOLUME 94.4 fl (80.0-94.0); MEAN CORPUSCULAR HGB 30.7 pg (27.0-31.0); MEAN CORPUSCULAR HGB CONC 32.5 g/dl (33.0-37.0); MEAN PLATELET VOLUME 9.4 fl (9.6-12.3); MONO # 1.1 10*3/uL (0.1-1.0); MONO % 18.5 % (3.0-9.0); NEUT # 4.5 10*3/uL (2.3-7.9); NEUT % 73.1 % (47.0-73.0); NUCLEATED RED BLOOD CELL 0.3 % (0.0-0.0); PLATELET COUNT AUTOMATED 227 10*3/uL (130-400); RED BLOOD COUNT 2.67 10*6/uL (4.50-5.90); RED CELL DISTRI WIDTH 15.9 % (0-14.5); WHITE BLOOD COUNT 6.1 10*3/uL (4.8-10.8)
[2017-07-08 08:00] VITALS: BP 132/62
--- NOTE | 2017-07-08 08:54 | NUR ---
CONSULT WAS CALLED IN FOR DR. FERRARI.
--- NOTE | 2017-07-08 09:12 | NUR ---
Checking with [facility] to see if patient has been accepted. Precert has not been started, patient is scheduled for MRI and a ortho consult for today. Will follow.
--- NOTE | 2017-07-08 09:33 | NUR ---
Faxed referral to [facility] as a second choice from patient. [facility] stated there is an issue with transporting patient to and from dialysis and questioned whether or not family could do this. Also, patients insurance is out of network for [facility]. Will follow.
--- NOTE | 2017-07-08 09:47 | NUR ---
MORPHINE GIVEN FOR ACUTE KNEE AND LOWER BACK PAIN. PATIENT RATED PAIN 8/10, WILL MONITOR.
--- NOTE | 2017-07-08 09:54 | NUR ---
PHYSICAL THERAPY Mr Haynes had his MRI, Tj not wanting any therapy at this time. Said that he's wants to see the Dr first before getting up. Dr to read MRI will start therapy when complete, but Tj didnot want up at this time due to pain. RUBEN OLIVAREZ COMMUNICATION ASSISTANT.
--- NOTE | 2017-07-08 10:30 | NUR ---
MORPHINE EFFECTIVE, PATIENT SATISFIED.
--- NOTE | 2017-07-08 11:14 | NUR ---
PATIENT SEEN 1:1 OT THIS DATE 27 MINUTES. PATIENT IN BED THIS DATE. PATIENT REQUESTED TO SIT EOB TO CONSUME MEAL. PATIENT COMPLETED SUPINE TO SIT EOB MAX A WITH INCREASE TIME REQUIRED AND VERBAL CUES TECHNIQUE AND FORM. PATIENT C/O INCREASE PAIN LEFT KNEE WITH ANY MOVEMENT. PATIENT COMPLETED SIT BAL EOB CGA WITH C/O FATIGUE. PATIENT COMPLETED SIT TO SUPINE MAX A WITH INCREASE TIME REQUIRED REPOSITIONING SELF USE RAILS. PATIENT VERBALIZED NO OTHER NEEDS. CALL LIGHT WITHIN REACH.
[2017-07-08 12:00] VITALS: BP 117/57
--- NOTE | 2017-07-08 13:33 | NUR ---
PHYSICAL THERAPY Mr Haynes seen this PM 1:1 and was sleeping sound, present. Mrs Haynes ask not to wake Tj that he was having stomach pain and she ask just to let his sleep please. RUBEN OLIVAREZ LIME VAT TENDER.
--- NOTE | 2017-07-08 14:20 | NUR ---
CONTACTED DR. RESENDIZ BECAUSE PATIENT HAS C/O ABDOMINAL DISCOMFORT AND HAS NOT HAD A BOWEL MOVEMENT IN A FEW DAYS. SEE NEW ORDERS.
--- NOTE | 2017-07-08 15:32 | NUR ---
DR. FERRARI IN TO SEE PATIENT AND DISCUSS LEFT KNEE DISCOMFORT.
[2017-07-08 16:00] VITALS: BP 123/58
--- NOTE | 2017-07-08 17:00 | NUR ---
dr. larsen performed a left knee aspiration. fluid sent sown to [facility] for testing. patient tolerated procedure well.
--- NOTE | 2017-07-08 18:55 | NUR ---
PATIENT RESTING COMFORTABLY IN THE BED, PATIENT IS NON-AMBULATORY DUE TO RECENT KNEE INJURY. PATIENT IS A&OX3 AND IS RECEIVING 2LPM NC. PATIENT HAS PAIN WHEN MOVING BUT DENIES PAIN AT REST. PATIENT IS STILL RECEIVING HEPARIN DRIP. CALL LIGHT WITHIN REACH, PATIENT IS MONITORED, HOB ELEVATED. SEE ASSESSMENT.
[2017-07-08 20:00] VITALS: BP 124/61
[2017-07-08 20:01] LABS: BF LYMPHOCYTES 2 %; BF MACROPHAGES 17 %; BF NEUTROPHILS 81 %
[2017-07-09] VITALS: BP 119/71
--- NOTE | 2017-07-09 05:35 | NUR ---
PATIENT MEDICATED WITH PO NORCO PER PRN ORDER FOR C/O LEFT KNEE PAIN. WILL MONITOR EFFECTIVENESS. CALL LIGHT LEFT IN REACH.
[2017-07-09 07:30] LABS: ACT PARTIAL THROMBO TIME 63.6 SECONDS (20.8-31.5); INTERNATIONAL NORM RATIO 1.4 (2.0-3.5)
[2017-07-09 08:00] VITALS: BP 108/58
--- NOTE | 2017-07-09 08:39 | NUR ---
PHYSICAL THERAPY Mr Haynes seen this AM for his therapy session. 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 Dr Serafin ruano fluid from Pt's left knee yesterday. Tj up sitting at bedside X 20 min independnet this AM therapy visit. X 2, to try and stand with MAX A X 1, and walker but due to left knee pain couldnot stant at this time. Tj back supine MOD A X 1, with left knee pain. Pt with call light, phone. RUBEN OLIVAREZ SUGAR CANE PLANTING EQUIPMENT OPERATOR.
--- NOTE | 2017-07-09 10:07 | NUR ---
Patient originally referred to [facility], however patients insurance in out of network. Patient was accepted to [facility] in [facility]. In to discuss with patient who asked I speak with his . Called who stated she prefers [place]. Will request precert be started. Waiting for auth.
[2017-07-09 10:26] LABS: BODY FLUID WBC 29200 /uL
--- NOTE | 2017-07-09 10:30 | NUR ---
Hospital exemption completed online in [employer]le[employer] system, [facility] starting precert today, waitin on auth
--- NOTE | 2017-07-09 11:14 | NUR ---
PATIENT OUT TO DIALYSIS THIS AM. NURSING REPORTS PATIENT WILL BE AT DIALYSIS FOR SEVERAL HOURS. WILL TRY BACK LATER DATE. RAJESH HARRIS/Raheem
[2017-07-09 12:09] LABS: ACID FAST SMEAR Negative (.); ACID FAST SPEC PROCESSING Concentration (.)
--- NOTE | 2017-07-09 13:07 | NUR ---
PHYSICAL THERAPY Pt went for his dialysis treatment this PM therapy visit. RUBEN OLIVAREZ PTA.
[2017-07-09 13:13] LABS: MEAN CELL VOLUME 95.9 fl (80.0-94.0); MEAN CORPUSCULAR HGB 30.8 pg (27.0-31.0); MEAN CORPUSCULAR HGB CONC 32.1 g/dl (33.0-37.0); MEAN PLATELET VOLUME 9.1 fl (9.6-12.3); NUCLEATED RED BLOOD CELL 0.1 10*3/uL (0.0-0.0); NUCLEATED RED BLOOD CELL 0.6 % (0.0-0.0); PLATELET COUNT AUTOMATED 258 10*3/uL (130-400); RED BLOOD COUNT 2.92 10*6/uL (4.50-5.90); RED CELL DISTRI WIDTH 16.6 % (0-14.5); WHITE BLOOD COUNT 8.6 10*3/uL (4.8-10.8)
--- NOTE | 2017-07-09 13:27 | NUR ---
ASSESSED PATIENT UPON RETURNING FROM DIALYSIS AND PATIENT HAD A CHANGE IN MENTAL STATUS. HE SAID "I HAD DIALYSIS AT THE ART SHOW." WHEN I ASKED HIM IF HE KNEW WHERE HE WAS HE SAID "[facility]." I ASKED HIM AGAIN WHERE HE HAD DIALYSIS HE SAID "[facility]" BUT YOU SAID I HAD IT HERE. DR. BOWER WAS NOTIFIED AND IMMEDIATELY CAME TO ASSESS THE PATIENT.
[2017-07-09 13:48] LABS: PLATELET SUFFICIENCY NORMAL (NORMAL); POLYCHROMASIA SLIGHT; ROULEAUX MARKED; TOTAL CELLS COUNTED 100 #CELLS
[2017-07-09 14:09] LABS: ALBUMIN 2.6 gm/dl (3.1-4.5); CREATININE 5.37 mg/dL (0.70-1.30); PHOSPHOROUS 4.9 mg/dL (2.5-4.9); POTASSIUM 4.6 mmol/L (3.5-5.1)
[2017-07-09 16:00] VITALS: BP 122/52
[2017-07-09 20:00] VITALS: BP 98/67
[2017-07-10] VITALS: BP 124/69
[2017-07-10 07:11] LABS: ALBUMIN 2.5 gm/dl (3.1-4.5); CREATININE 7.38 mg/dL (0.70-1.30)
[2017-07-10 07:14] LABS: ACT PARTIAL THROMBO TIME 71.8 SECONDS (20.8-31.5); INTERNATIONAL NORM RATIO 1.8 (2.0-3.5)
[2017-07-10 08:00] VITALS: BP 145/59
--- NOTE | 2017-07-10 08:15 | NUR ---
PATIENT GIVEN BENTYL, ZOFRAN, AND REQUIP PER PT REQUEST FOR STOMACH CRAMPING, NAUSEA, AND RESTLESSNESS IN THE THE LEGS. WILL CONTINUE TO MONITOR AND REASSESS.
--- NOTE | 2017-07-10 08:33 | NUR ---
Received authorization for patient to go to [facility] today. Can go if medically stable for discharge.
--- NOTE | 2017-07-10 08:40 | NUR ---
DR. JEFFERSON IN TO SEE PATIENT REGARDING NEPHROLOGY.
--- NOTE | 2017-07-10 10:12 | NUR ---
PHYSICAL THERAPY Patient presented to therapy in supine with report of pain in the L Knee and L Hip. Patient performed supine to sitting at EOB transfer with Max A X 1. Patient performed sit to stand transfer and stand-pivot to bedside chair with Mod. A X 1. Patient used W/W for sit to stand and stand- pivot transfer. Patient was left in seated position wit hLEs raised and call light within reach. storage engineer were informed of patient transfering to bedside chair. Patient was 1:1 with this DEPUTY DIRECTOR OF NURSING for 15 minutes total. PACO RAMÍREZ DEPUTY DIRECTOR OF NURSING
[2017-07-10 12:00] VITALS: BP 125/53
--- NOTE | 2017-07-10 13:44 | NUR ---
PHYSICAL THERAPY Mr Haynes was up in his bedside chair from his morning treatment, present. Verbal cues for pt's transfer up to stand with MAX A X 1, but due to left knee pain could not transfer up standing, I went and got help. Transfer sit/stand with MAX A X 2, up on wheeled walker. Standing balance MIN A X 2, then pivot back to bedside MOD A X 2, and sit. Transfer supine MOD A X 1, helping bilateral LE into bed. Pt with call light, wanting to rest, going to stay. RUBEN OLIVAREZ BROODMARE BARN GROOM.
--- NOTE | 2017-07-10 14:43 | NUR ---
OCCUPATIONAL THERAPY CO-SIGN I approve of the Occupational Therapy notes written above. LETTY PHOENIX OTR/Raheem
[2017-07-10 16:00] VITALS: BP 158/67
[2017-07-10 20:00] VITALS: BP 151/64
[2017-07-11] VITALS: BP 140/63
--- NOTE | 2017-07-11 06:32 | NUR ---
SPOKE TO THE DIALISYS NURSE ABOUT ANY CHANGES ON THE PT. NURSE MADE AWARE OF NO CHANGES. WILL CONTINUE TO MONITOR PT.
--- NOTE | 2017-07-11 07:10 | NUR ---
ASSUMED CARE OF PATIENT. PATIENT IS AWAKE ALERT AND ORIENTED. PLEASANT, AND CURRENTLY PREPARING TO GO TO DIALYSIS.
[2017-07-11 07:27] LABS: HEMATOCRIT 25.1 % (42.0-52.0); HEMOGLOBIN 8.1 g/dl (14.0-18.0); MEAN CELL VOLUME 94.7 fl (80.0-94.0); MEAN CORPUSCULAR HGB 30.6 pg (27.0-31.0); MEAN CORPUSCULAR HGB CONC 32.3 g/dl (33.0-37.0); MEAN PLATELET VOLUME 9.4 fl (9.6-12.3); NUCLEATED RED BLOOD CELL 0.3 % (0.0-0.0); PLATELET COUNT AUTOMATED 265 10*3/uL (130-400); RED BLOOD COUNT 2.65 10*6/uL (4.50-5.90); RED CELL DISTRI WIDTH 16.2 % (0-14.5)
[2017-07-11 07:48] LABS: INTERNATIONAL NORM RATIO 2.5 (2.0-3.5)
[2017-07-11 07:52] LABS: POTASSIUM 5.9 mmol/L (3.5-5.1)
[2017-07-11 07:55] LABS: ALBUMIN 2.5 gm/dl (3.1-4.5); CREATININE 8.09 mg/dL (0.70-1.30)
[2017-07-11 08:00] VITALS: BP 146/83
[2017-07-11 08:30] LABS: TOTAL CELLS COUNTED 100 #CELLS
[2017-07-11 08:31] LABS: PLATELET SUFFICIENCY NORMAL (NORMAL); POLYCHROMASIA SLIGHT
[2017-07-11 08:34] LABS: PHOSPHOROUS 8.9 mg/dL (2.5-4.9)
--- NOTE | 2017-07-11 09:00 | NUR ---
OT DAILY NOTE OT ATTEMPTED THIS AM. PT OFF OF THE FLOOR AT DIALYSIS. WILL ATTEMPT AT ANOTHER DATE AND TIME. CONTINUE PLAN OF CARE.
--- NOTE | 2017-07-11 09:33 | NUR ---
PHYSICAL THERAPY Patient was not in room at 9:34 am. Will check back later. Daniele White SHEET METAL LAYOUT MECHANIC
--- NOTE | 2017-07-11 11:00 | NUR ---
PHYSICAL THERAPY Patient is presently still in Dialysis treatment room. Will check back later. PACO RAMÍREZ MUSHROOM GROWER
--- NOTE | 2017-07-11 13:16 | NUR ---
PHYSICAL THERAPY PAtient with posterior horn lateral meniscus tear. MCL strain and fractured coccyx. PT staff educated. Ofe Bhatti,PT
--- NOTE | 2017-07-11 13:28 | NUR ---
Precert will need to be restarted since patient did not go when auth was aquired. Will restart precert on Saturday so patient can be discharged over the weekend. will follow
--- NOTE | 2017-07-11 13:28 | NUR ---
PHYSICAL THERAPY Patient is back in his room from dialysis , but at this time he is eating his lunch. Will check back later. PACO RAMÍREZ FAMILY CASEWORKER
--- NOTE | 2017-07-11 13:39 | NUR ---
PHYSICAL THERAPY Nurse in the room with the patient at this time. Will check back shortly with the patient. PACO RAMÍREZ SITE SAFETY REPRESENTATIVE
--- NOTE | 2017-07-11 13:52 | NUR ---
HELD PATIENT'S INSULIN DUE TO BEING LATE AND CLOSE TO NEXT DOSE. BLOOD GLUCOSE LEVEL 185.
--- NOTE | 2017-07-11 14:25 | NUR ---
PHYSICAL THERAPY Patient presented to therapy with report of feeling much better after having the cortizone shot in the L Knee and having fluid aspirated from it yesterday. Patient was sitting at EOB upon arrival of this ESTATE ATTORNEY. Patient was on 2 liters of O2. Patient performed sit to stand transfer with CGA X 1. Patient performed gait with W/W 12' x 1 with Close Supervision. Patient transfered to bedside chair with Close Supervision with verbal cues for proper exercise technique. Patient then performed seated ther ex in all planes of movement x 20 reps each with no difficulty or complaint. Patient performed 1 final sit to stand with Close supervision from chair to W/W and he stood for 1 minute. Patient was left in seated position with LEs raised and call light within reach. Patient's was present during the treatment. Patient was 1:1 with this ESTATE ATTORNEY for 20 minutes total. PACO RAMÍREZ ESTATE ATTORNEY
[2017-07-11 16:00] VITALS: BP 144/80
[2017-07-11 20:00] VITALS: BP 126/83
[2017-07-12] VITALS: BP 152/55
[2017-07-12 06:13] LABS: HEMATOCRIT 25.2 % (42.0-52.0); HEMOGLOBIN 8.1 g/dl (14.0-18.0); MEAN CELL VOLUME 94.4 fl (80.0-94.0); MEAN CORPUSCULAR HGB 30.3 pg (27.0-31.0); MEAN CORPUSCULAR HGB CONC 32.1 g/dl (33.0-37.0); MEAN PLATELET VOLUME 8.8 fl (9.6-12.3); PLATELET COUNT AUTOMATED 226 10*3/uL (130-400); RED BLOOD COUNT 2.67 10*6/uL (4.50-5.90); RED CELL DISTRI WIDTH 16.7 % (0-14.5); WHITE BLOOD COUNT 8.9 10*3/uL (4.8-10.8)
[2017-07-12 06:33] LABS: ALBUMIN 2.6 gm/dl (3.1-4.5); CREATININE 6.03 mg/dL (0.70-1.30); PHOSPHOROUS 6.1 mg/dL (2.5-4.9); POTASSIUM 5.4 mmol/L (3.5-5.1)
[2017-07-12 06:43] LABS: INTERNATIONAL NORM RATIO 2.5 (2.0-3.5)
[2017-07-12 07:09] LABS: PLATELET SUFFICIENCY NORMAL (NORMAL); POLYCHROMASIA SLIGHT; TOTAL CELLS COUNTED 100 #CELLS
[2017-07-12 08:00] VITALS: BP 126/52
--- NOTE | 2017-07-12 08:08 | NUR ---
PT TRANSPORTED TO DIALYSIS AT THIS TIME.
--- NOTE | 2017-07-12 09:47 | NUR ---
PATIENT IN DIALYSIS IN AM. WILL TRY BACK LATER TIME. RAJESH HARRIS/Raheem
--- NOTE | 2017-07-12 09:48 | NUR ---
PT MEDICATED WITH PRN TYLENOL FOR C/O COCCYX PAIN.
--- NOTE | 2017-07-12 10:22 | NUR ---
PHYSICAL THERAPY Mr Haynes seen this AM 1:1 for his therapy session, said that he was feeling much better. Pt sitting independent at bedside. Transfer sit/stand and up on wheeled walker MIN A X 1. Gait total 25' X 1, with W/W and CGA X 1, no LOB and little cueing for gait/walker safety. Pt back sitting at bedside. Followed by act marching, LAQ's, marching X 20 reps each with cueing as needed, Pt having no new complaint. RUBEN OLIVAREZ CREW SCHEDULER.
[2017-07-12 12:00] VITALS: BP 126/78
--- NOTE | 2017-07-12 12:04 | NUR ---
received authorization for patient to go to [facility], auth is good for all weekend.
--- NOTE | 2017-07-12 13:14 | NUR ---
PHYSICAL THERAPY Pt at his dialysis treatment. RUBEN OLIVAREZ MAIL PROCESSOR.
--- NOTE | 2017-07-12 13:55 | NUR ---
PT MEDICATED WITH PRN MORPHINE FOR C/O COCCYX PAIN FROM LYING FLAT AT DIALYSIS. PT RATES PAIN 04/14. WILL REACCESS.
--- NOTE | 2017-07-12 14:43 | NUR ---
PRN MORPHINE EFFECTIVE PER PT.
[2017-07-12 16:00] VITALS: BP 134/57
[2017-07-12 20:00] VITALS: BP 103/50
--- NOTE | 2017-07-12 20:00 | NUR ---
ASSUMED CARE OF PATIENT. ASSESSMENT COMPLETE. SITTING UP ON SIDE OF BED. O2 INTACT. DENIES ANY NEEDS AT THIS TIME. CALL LIGHT IN REACH. WILL CONTINUE TO MONITOR.
[2017-07-13] VITALS: BP 118/55
--- NOTE | 2017-07-13 02:24 | NUR ---
PATIENT IS RETING IN BED. PATIENT HAS NO COMPLAINTS OF PAIN OR DISCOMFORT AT THIS TIME. PATIENT HAS HAD KNEE PAIN UPON TRANSITIONING FROM BED TO CHAIR. PATIENT IS A&OX3, BUT DOES BECOMES CONFUSED AT TIMES. PATIENT HAS NO FURTHER REQUESTS AT THIS TIME. CALL LIGHT IS WITHIN REACH. SEE ASSESSMENT.
[2017-07-13 08:00] VITALS: BP 116/85
--- NOTE | 2017-07-13 08:07 | NUR ---
PHYSICAL THERAPY Therapist arrived with patient in bed sidelying on 2L of O2. Pt reports he will be going to [facility] today and is eager to leave. he reports no pain upon arrival. he states that he does not wish to complete gait training but does agree to therex EOB to improve strength and mobility. pt completed 2x STS, 10x march, laq, and 20x heel toe raises in seated. He reports no pain in any activity but does report shortness of breath upon completion of 2x STS. Pt was left in seated on EOB position with call light in reach. He reports no pain upon completion. Dianne Mabry PTA
--- NOTE | 2017-07-13 08:11 | NUR ---
PHYSICAL THERAPY Therapist arrives with patient supine in bed today. She was agreeable to gait training and therex. Pt was seen 1:1 with MONKEY KEEPER. She reports having increased pain this morning prior to her pain medication but upon arrival reports a 3/10 and some swelling and tightness otherwise feeling good. She states that occasionally she gets a shooting pain indicating the medial distal region of the patella. She completed 250' of gait training with WW with verbal cues to improve knee flexion and did well with completing heel strike with minimal instruction. She then completed 7 steps ascending and descending with use of one hand rail for support. Pt completed step stretch into flexion and extension to improve mobility and reports improved mobility and decreased pain upon completion. She did receive an ice pack to manage inflammation and manage pain. She was educated on self stretch. Nursing reports patient has been completing laps around the floor using WW without assist since last evening. Pt left seated EOB upon completion with no complaints. Dianne Mabry PTA
--- NOTE | 2017-07-13 09:01 | NUR ---
PT SITTING UP IN BED EATING BREAKFAST. NO DISTRESS NOTED. WILL MONITOR
[2017-07-13] MEDS ORDERED: COUMADIN5 M2 PO (10:04)
[2017-07-13 13:00] VITALS: BP 98/75
--- NOTE | 2017-07-13 15:07 | NUR ---
REPORT CALLED TO RUBEN AT [facility]
--- NOTE | 2017-07-13 15:38 | NUR ---
MORPHINE 2MG GIVEN FOR C/O GENERALIZED BACK PAIN, 04/14.
--- NOTE | 2017-07-13 15:56 | NUR ---
Discharge instructions reviewed with patient/family. Patient receptive and verbalizes understanding. Follow-up care arranged. Written instructions given to patient/family. PT TRANSPORTED [facility]IA [facility] TO [facility]. DEVANTE MOLINA
--- NOTE | 2017-07-15 08:04 | NUR ---
OCCUPATIONAL THERAPY CO-SIGN I approve of the Occupational Therapy notes written above. LETTY PHOENIX OTR/Raheem
--- NOTE | 2017-07-15 08:19 | NUR ---
PHYSICAL THERAPY CO-SIGN I approve of the Phyical Therapy notes written above. DIANA ANAYA PT
== END 2017-07-13 15:56 | DRG 564 ==
LOC: ED 11:41 → EDHOLD 15:25 → 5E 15:25
PROVIDERS: Internal Medicine; Internal Medicine Cardiovascular Disease; Internal Medicine Nephrology; Orthopaedic Surgery; Registered Nurse; Student in an Organized Health Care Education/Training Program; ADMIT Emergency Medicine
PROC: 5A1D70Z Performance of Urinary Filtration, Intermittent, Less than 6 Hours Per Day (ICD-10-PCS; principal; 2017-07-04)
PROC: 5A1D70Z Performance of Urinary Filtration, Intermittent, Less than 6 Hours Per Day (ICD-10-PCS; 2017-07-06)
PROC: 0S9D3ZX Drainage of Left Knee Joint, Percutaneous Approach, Diagnostic (ICD-10-PCS; 2017-07-08)
PROC: 5A1D70Z Performance of Urinary Filtration, Intermittent, Less than 6 Hours Per Day (ICD-10-PCS; 2017-07-09)
PROC: 5A1D70Z Performance of Urinary Filtration, Intermittent, Less than 6 Hours Per Day (ICD-10-PCS; 2017-07-11)
PROC: 5A1D70Z Performance of Urinary Filtration, Intermittent, Less than 6 Hours Per Day (ICD-10-PCS; 2017-07-12)
DX: M25.462 Effusion, left knee (principal); N18.6 End stage renal disease; I13.2 Hypertensive heart and chronic kidney disease with heart failure and with stage 5 chronic kidney disease, or end stage renal disease; E11.22 Type 2 diabetes mellitus with diabetic chronic kidney disease; E11.40 Type 2 diabetes mellitus with diabetic neuropathy, unspecified; D68.59 Other primary thrombophilia; K31.84 Gastroparesis; I48.0 Paroxysmal atrial fibrillation; E11.43 Type 2 diabetes mellitus with diabetic autonomic (poly)neuropathy; S32.2XXA Fracture of coccyx, initial encounter for closed fracture; I50.32 Chronic diastolic (congestive) heart failure; Z68.41 Body mass index [BMI] 40.0-44.9, adult; S83.282A Other tear of lateral meniscus, current injury, left knee, initial encounter; E87.5 Hyperkalemia; I25.10 Atherosclerotic heart disease of native coronary artery without angina pectoris; K21.9 Gastro-esophageal reflux disease without esophagitis; I45.10 Unspecified right bundle-branch block; E66.01 Morbid (severe) obesity due to excess calories; E11.65 Type 2 diabetes mellitus with hyperglycemia; D63.1 Anemia in chronic kidney disease; R27.0 Ataxia, unspecified; E83.39 Other disorders of phosphorus metabolism; N40.0 Benign prostatic hyperplasia without lower urinary tract symptoms; X58.XXXA Exposure to other specified factors, initial encounter; E78.2 Mixed hyperlipidemia; I34.0 Nonrheumatic mitral (valve) insufficiency; I07.1 Rheumatic tricuspid insufficiency; F32.9 Major depressive disorder, single episode, unspecified; E03.9 Hypothyroidism, unspecified; W19.XXXA Unspecified fall, initial encounter; Z79.01 Long term (current) use of anticoagulants; Z87.891 Personal history of nicotine dependence; Z88.8 Allergy status to other drugs, medicaments and biological substances; Z91.048 Other nonmedicinal substance allergy status; Y99.8 Other external cause status; Z79.4 Long term (current) use of insulin; Z79.899 Other long term (current) drug therapy; Z95.1 Presence of aortocoronary bypass graft; Z99.2 Dependence on renal dialysis; Z90.49 Acquired absence of other specified parts of digestive tract; Z80.42 Family history of malignant neoplasm of prostate; Z98.890 Other specified postprocedural states; Z82.49 Family history of ischemic heart disease and other diseases of the circulatory system; Z79.51 Long term (current) use of inhaled steroids; Z95.2 Presence of prosthetic heart valve; Y93.89 Activity, other specified; Y92.89 Other specified places as the place of occurrence of the external cause

== ENCOUNTER → 2017-08-16 | Outpatient (CLI) | payer OTHER ==
[~2017-08-16] MED LIST changes: +SPIRIVA -- 3018 MCG INH; +WARFARIN SODIUM1 MG PO
[2017-08-16 15:29] LABS: BASO % 0.4 % (0.0-1.0); EOS # 0.1 10*3/uL (0.0-0.4); HEMATOCRIT 31.1 % (42.0-52.0); LYMPH # 0.4 10*3/uL (1.3-4.4); LYMPH % 5.7 % (27.0-41.0); MEAN CELL VOLUME 96.3 fl (80.0-94.0); MEAN CORPUSCULAR HGB CONC 32.2 g/dl (33.0-37.0); MEAN PLATELET VOLUME 9.3 fl (9.6-12.3); MONO % 12.7 % (3.0-9.0); NUCLEATED RED BLOOD CELL 0.3 % (0.0-0.0); PLATELET COUNT AUTOMATED 187 10*3/uL (130-400); RED BLOOD COUNT 3.23 10*6/uL (4.50-5.90); RED CELL DISTRI WIDTH 17.2 % (0-14.5); WHITE BLOOD COUNT 7.7 10*3/uL (4.8-10.8)
[2017-08-16 15:54] LABS: ALBUMIN 3.2 gm/dl (3.1-4.5); CREATININE 3.62 mg/dL (0.70-1.30); PHOSPHOROUS 2.1 mg/dL (2.5-4.9); POTASSIUM 4.1 mmol/L (3.5-5.1)
[2017-08-16 15:56] LABS: CHOLESTEROL 235 mg/dL (<200); HDL CHOLESTEROL 33 mg/dl (40-60); TRIGLYCERIDES 770 mg/dl (<150)
[2017-08-16 16:23] LABS: PTH INTACT 99.6 pg/mL (14.0-72.0); VITAMIN D, 25-HYDROXY 23.2 ng/mL (30-100)
== END | disposition home or self-care (01) ==
LOC: LAB 14:55
PROVIDERS: Internal Medicine Interventional Cardiology; Internal Medicine Nephrology
DX: E11.65 Type 2 diabetes mellitus with hyperglycemia (principal); E11.40 Type 2 diabetes mellitus with diabetic neuropathy, unspecified; D63.1 Anemia in chronic kidney disease; N25.81 Secondary hyperparathyroidism of renal origin; E55.9 Vitamin D deficiency, unspecified; E78.2 Mixed hyperlipidemia

== ENCOUNTER → 2017-09-16 | Outpatient (CLI) | payer OTHER ==
[2017-09-16 21:53] LABS: BF MACROPHAGES 7 %; BF NEUTROPHILS 93 %
[2017-09-16 22:01] LABS: BODY FLUID WBC 39200 /uL
== END | disposition home or self-care (01) ==
LOC: LAB 09:00 → ORTHO 12:40
PROVIDERS: Orthopaedic Surgery
DX: M25.462 Effusion, left knee (principal)

== ENCOUNTER → 2017-09-25 | Outpatient (CLI) | payer OTHER | END | disposition home or self-care (01) | LOC: RAD 15:38 | DX: I51.7 Cardiomegaly (principal); J44.9 Chronic obstructive pulmonary disease, unspecified; I50.33 Acute on chronic diastolic (congestive) heart failure; Z87.891 Personal history of nicotine dependence; Z95.2 Presence of prosthetic heart valve ==

== ENCOUNTER 2017-10-05 11:56 | Emergency (ER) | payer OTHER ==
[~2017-10-05] VITALS: Ht 177.8 cm; Wt 123.8 kg
[2017-10-05 12:03] VITALS: BP 121/89
[2017-10-05 12:52] LABS: BASO % 0.5 % (0.0-1.0); EOS # 0.1 10*3/uL (0.0-0.4); EOS % 1.5 % (1.0-4.0); HEMATOCRIT 32.4 % (42.0-52.0); LYMPH # 0.6 10*3/uL (1.3-4.4); LYMPH % 8.6 % (27.0-41.0); MEAN CELL VOLUME 99.4 fl (80.0-94.0); MEAN CORPUSCULAR HGB 30.7 pg (27.0-31.0); MEAN CORPUSCULAR HGB CONC 30.9 g/dl (33.0-37.0); MEAN PLATELET VOLUME 9.3 fl (9.6-12.3); MONO # 0.8 10*3/uL (0.1-1.0); MONO % 12.6 % (3.0-9.0); NEUT # 5.1 10*3/uL (2.3-7.9); NEUT % 76.2 % (47.0-73.0); PLATELET COUNT AUTOMATED 120 10*3/uL (130-400); RED BLOOD COUNT 3.26 10*6/uL (4.50-5.90); RED CELL DISTRI WIDTH 18.5 % (0-14.5); WHITE BLOOD COUNT 6.7 10*3/uL (4.8-10.8)
[2017-10-05 13:01] LABS: ACT PARTIAL THROMBO TIME 37.2 SECONDS (20.8-31.5); INTERNATIONAL NORM RATIO 1.6 (2.0-3.5)
[2017-10-05 13:09] LABS: ALBUMIN 2.8 gm/dl (3.1-4.5); CREATININE 5.74 mg/dL (0.70-1.30); TOTAL PROTEIN 7.4 gm/dL (6.4-8.2)
== END 2017-10-05 14:00 | disposition home or self-care (01) ==
LOC: ED 11:56
PROVIDERS: Nurse Practitioner Family
DX: I87.2 Venous insufficiency (chronic) (peripheral) (principal); I70.8 Atherosclerosis of other arteries; I13.2 Hypertensive heart and chronic kidney disease with heart failure and with stage 5 chronic kidney disease, or end stage renal disease; E11.22 Type 2 diabetes mellitus with diabetic chronic kidney disease; N18.6 End stage renal disease; I50.9 Heart failure, unspecified; M10.9 Gout, unspecified; K21.9 Gastro-esophageal reflux disease without esophagitis; E78.00 Pure hypercholesterolemia, unspecified; E66.9 Obesity, unspecified; J45.909 Unspecified asthma, uncomplicated; Z68.42 Body mass index [BMI] 45.0-49.9, adult; Z87.891 Personal history of nicotine dependence; Z90.49 Acquired absence of other specified parts of digestive tract; Z98.890 Other specified postprocedural states; Z95.1 Presence of aortocoronary bypass graft; Z79.4 Long term (current) use of insulin; Z79.899 Other long term (current) drug therapy; Z79.01 Long term (current) use of anticoagulants; Z88.8 Allergy status to other drugs, medicaments and biological substances; Z99.2 Dependence on renal dialysis

== ENCOUNTER → 2017-11-18 | Outpatient (CLI) | payer OTHER | END | disposition home or self-care (01) | LOC: LAB 17:00 | DX: J44.9 Chronic obstructive pulmonary disease, unspecified (principal); I51.7 Cardiomegaly; Z95.2 Presence of prosthetic heart valve ==

== ENCOUNTER → 2017-11-19 | Outpatient (CLI) | payer OTHER | END | disposition home or self-care (01) | LOC: LAB 14:54 | DX: J44.9 Chronic obstructive pulmonary disease, unspecified (principal) ==

== ENCOUNTER 2017-12-20 13:59 | Inpatient (IN) | payer OTHER ==
[2017-12-20] VITALS (11 sets, daily range): BP systolic 85–120; BP diastolic 37–60
[~2017-12-20] VITALS: Ht 177.8 cm; Wt 133.8 kg
--- NOTE | ~2017-12-20 | CON ---
[place], [place] REPORT OF CONSULTATION NAME: BRENDAN HARTMAN UNIT #: [id number] ROOM: [facility] DOCTOR: ROSA MARIA WILLIAMSON MD BIRTHDATE: [birth year] DOS: 12/20/2017 HISTORY OF PRESENT ILLNESS: A 67-year-old morbidly obese patient with chronic renal failure, dialysis dependency, multiple medical issues, mechanical valvular heart. He has presented to Emergency Room with melanotic stool, and this morning, hematemesis as well. The patient is quite sick. The patient has been admitted through Emergency Room for definitive assessment. He has been on Coumadin. His admission workup shows lactic acid of 3.2, INR of 3.6 with PT of 39 seconds, and PTT of 64 seconds. Comprehensive metabolic panel, BUN and creatinine 51 and 1.1 with a GFR of 9. Electrolytes were balanced. Liver function test is normal. C-reactive protein is 9.5. CBC differential was reassessed, H and H of 6 and 21 was noticed with platelet count of 187. Chest x-ray obtained, no acute cardiopulmonary pathology. CT scan of the abdomen and pelvis was obtained, severely distended stomach secondary to food and fluid, gastric outlet obstruction could not be ruled out, peptic ulcer disease could not be ruled out, postop cholecystectomy. Lactic acid was 3.6. Again, troponin was normal. PAST MEDICAL HISTORY: Associated with morbid obesity, coronary artery disease, congestive heart failure, anemia, renal failure, dialysis dependency, diabetic neuropathy, cardiac valvular disease, right bundle branch block, atrial fibrillation, tachycardia at the present time. PAST SURGICAL HISTORY: Aortic valvular repair and prosthesis with mechanical valve, tonsillectomy, CABG, cholecystectomy, hemorrhoidectomy, hemarthrosis of the knee. SOCIAL HISTORY: Nonsmoker at the present time, past history of smoking, nonalcohol consumer. FAMILY HISTORY: Noncontributory. ALLERGIES: ATORVASTATIN, GABAPENTIN AND TAPE. MEDICATIONS: List has been reviewed. He had been on Coumadin until yesterday and also on fish oil. REVIEW OF SYSTEMS: HEENT: Denies double vision or blurred vision. RESPIRATORY: Denies acute shortness of breath. CARDIOVASCULAR: Denies chest pain. DIGESTIVE SYSTEM: Nauseated, hematemesis, and melanotic stool now. PHYSICAL EXAMINATION: GENERAL: Super morbid obese patient. HEENT: Head is normocephalic, nontraumatic. Mouth and buccal mucosa benign. NECK: Supple. No thyromegaly, no cervical lymphadenopathy. CHEST: Symmetric anatomy, equal expansion. No wheeze, no rhonchi. HEART: Tachycardic, irregular, rate of about 120+. ABDOMEN: Morbidly obese. Intraabdominal organs cannot be palpated at all. [place], [place] REPORT OF CONSULTATION NAME: BRENDAN HARTMAN UNIT #: [id number] ROOM: [facility] DOCTOR: ROSA MARIA WILLIAMSON MD BIRTHDATE: [birth year] Bowel sounds positive. EXTREMITIES: Trace pedal edema. No cyanosis. No pedal edema. NEUROLOGIC: Alert, fully oriented to time, place and person. DIAGNOSTIC STUDIES: Labs reviewed, records reviewed, data reviewed. IMPRESSION: Gastrointestinal bleed, on Coumadin, atrial fibrillation, mechanical aortic valve, severe profound anemia with GI bleed, cardiac dysrhythmias as noted above. PLAN AND DISCUSSION: Transfusion and stabilization. Today with urgent endoscopy and clinical reassessment. Other adjunctive diagnoses of end-stage renal disease, dialysis dependency, diabetes mellitus, all have been recognized and we will reassess. ROSA MARIA WILLIAMSON MD CM:CONSTR:REPORT OF CONSULTATION 47 12/21/17 0420 interface
--- NOTE | ~2017-12-20 | O ---
[place], [place] OPERATIVE NOTE NAME: BRENDAN HARTMAN UNIT #: [id number] ROOM: [facility]- DOCTOR: CLAY JENNINGS,ROSA MARIA BIRTHDATE: [birth year] DOS: 12/20/2017 ENDOSCOPIC REPORT INDICATIONS: This is a 67-year-old obese patient, who is having atrial fibrillation, on Coumadin, end-stage renal failure, dialysis dependency, who has gone to dialysis unit. He had coffee-ground emesis with radiation of the pain to his back. He was admitted through Emergency Room with hemoglobin of 6 and tachycardia, rate of 120+. PROCEDURE: Today's procedure part of investigation is panendoscopy. PREMEDICATION: Propofol by anesthesia. SCOPE: Olympus forward-viewing gastroscope Q10 video. REPORT: After putting the patient in left lateral position and application of lubricant to the scope, the scope was introduced. Thereafter, under direct visualization, advanced through the length of esophagus into gastric pouch. Gastric pouch is full of food debris and black blood, which may show chronicity of the bleeding gradually and especially that he has had this morning hematemesis. The gastric pouch is a very large pouch and massive volume of food and debris in the stomach. As much as possible with care, some was suctioned out, but detailed visualization absolutely impractical. PLAN AND DISCUSSION: We are going to give him a dose of Reglan. We are going to see if this patient has to be transferred. From one hand, we need to reverse the anticoagulant effect of Coumadin for his GI bleed; from the other hand, we need the anticoagulation to be enforced because of mechanical aortic valve. He needs a urgent dialysis that is not available at our service. In summary, he may be a best candidate for being transferred to ____. ROSA MARIA WILLIAMSON MD CM:OPRECORD:OPERATIVE NOTE 194 1 ROSA MARIA WILLIAMSON MD 12/21/17 0421 interface
[2017-12-20 14:46] LABS: HEMATOCRIT 21.4 % (42.0-52.0); HEMOGLOBIN 6.5 g/dl (14.0-18.0); MEAN CELL VOLUME 99.5 fl (80.0-94.0); MEAN CORPUSCULAR HGB 30.2 pg (27.0-31.0); MEAN CORPUSCULAR HGB CONC 30.4 g/dl (33.0-37.0); MEAN PLATELET VOLUME 9.2 fl (9.6-12.3); NUCLEATED RED BLOOD CELL 0.1 10*3/uL (0.0-0.0); NUCLEATED RED BLOOD CELL 0.6 % (0.0-0.0); PLATELET COUNT AUTOMATED 184 10*3/uL (130-400); RED BLOOD COUNT 2.15 10*6/uL (4.50-5.90); RED CELL DISTRI WIDTH 17.2 % (0-14.5); WHITE BLOOD COUNT 11.2 10*3/uL (4.8-10.8)
[2017-12-20 14:55] LABS: ACT PARTIAL THROMBO TIME 64.3 SECONDS (20.8-31.5); INTERNATIONAL NORM RATIO 3.6 (2.0-3.5)
[2017-12-20 14:59] LABS: ALBUMIN 2.2 gm/dl (3.1-4.5); CREATININE 6.17 mg/dL (0.70-1.30); POTASSIUM 3.7 mmol/L (3.5-5.1); TOTAL PROTEIN 6.4 gm/dL (6.4-8.2); TROPONIN I 0.016 ng/ml (<0.045)
[2017-12-20 15:07] LABS: TOTAL CELLS COUNTED 100 #CELLS
[2017-12-20 15:08] LABS: PLATELET SUFFICIENCY NORMAL (NORMAL); POLYCHROMASIA SLIGHT
== END 2017-12-21 02:32 | disposition short-term general hospital (02) | DRG 377 ==
LOC: ED 13:59 → EDHOLD 16:47 → ICCU 17:41
PROVIDERS: Nurse Practitioner Family
DX: K92.1 Melena (principal); N18.6 End stage renal disease; J96.00 Acute respiratory failure, unspecified whether with hypoxia or hypercapnia; R65.11 Systemic inflammatory response syndrome (SIRS) of non-infectious origin with acute organ dysfunction; E43 Unspecified severe protein-calorie malnutrition; I13.2 Hypertensive heart and chronic kidney disease with heart failure and with stage 5 chronic kidney disease, or end stage renal disease; I48.0 Paroxysmal atrial fibrillation; E11.22 Type 2 diabetes mellitus with diabetic chronic kidney disease; E11.41 Type 2 diabetes mellitus with diabetic mononeuropathy; I50.32 Chronic diastolic (congestive) heart failure; E87.2 Acidosis; Z68.41 Body mass index [BMI] 40.0-44.9, adult; Z95.2 Presence of prosthetic heart valve; E66.01 Morbid (severe) obesity due to excess calories; I87.2 Venous insufficiency (chronic) (peripheral); D63.1 Anemia in chronic kidney disease; N40.0 Benign prostatic hyperplasia without lower urinary tract symptoms; I25.10 Atherosclerotic heart disease of native coronary artery without angina pectoris; F32.9 Major depressive disorder, single episode, unspecified; M10.9 Gout, unspecified; E78.2 Mixed hyperlipidemia; K21.9 Gastro-esophageal reflux disease without esophagitis; E03.9 Hypothyroidism, unspecified; R79.1 Abnormal coagulation profile; E11.65 Type 2 diabetes mellitus with hyperglycemia; E83.41 Hypermagnesemia; R79.82 Elevated C-reactive protein (CRP); D53.9 Nutritional anemia, unspecified; I45.10 Unspecified right bundle-branch block; Z96.653 Presence of artificial knee joint, bilateral; D50.0 Iron deficiency anemia secondary to blood loss (chronic); Z79.01 Long term (current) use of anticoagulants; Z88.8 Allergy status to other drugs, medicaments and biological substances; Z91.048 Other nonmedicinal substance allergy status; Z79.899 Other long term (current) drug therapy; Z79.4 Long term (current) use of insulin; Z91.81 History of falling; Z87.01 Personal history of pneumonia (recurrent); Z90.49 Acquired absence of other specified parts of digestive tract; Z95.1 Presence of aortocoronary bypass graft; Z87.891 Personal history of nicotine dependence; Z82.49 Family history of ischemic heart disease and other diseases of the circulatory system; Z80.42 Family history of malignant neoplasm of prostate; Z82.0 Family history of epilepsy and other diseases of the nervous system; Z83.3 Family history of diabetes mellitus; Z99.2 Dependence on renal dialysis

== ENCOUNTER → 2018-01-18 | Outpatient (CLI) | payer OTHER ==
[2018-01-18 15:53] LABS: BASO # 0.1 10*3/uL (0.0-0.1); BASO % 0.8 % (0.0-1.0); EOS # 0.1 10*3/uL (0.0-0.4); EOS % 1.5 % (1.0-4.0); HEMATOCRIT 27.7 % (42.0-52.0); HEMOGLOBIN 8.6 g/dl (14.0-18.0); LYMPH # 0.5 10*3/uL (1.3-4.4); LYMPH % 8.3 % (27.0-41.0); MEAN CELL VOLUME 97.2 fl (80.0-94.0); MEAN CORPUSCULAR HGB 30.2 pg (27.0-31.0); MEAN PLATELET VOLUME 8.9 fl (9.6-12.3); MONO # 0.7 10*3/uL (0.1-1.0); MONO % 12.3 % (3.0-9.0); NEUT # 4.5 10*3/uL (2.3-7.9); NEUT % 76.3 % (47.0-73.0); PLATELET COUNT AUTOMATED 142 10*3/uL (130-400); RED BLOOD COUNT 2.85 10*6/uL (4.50-5.90); RED CELL DISTRI WIDTH 16.5 % (0-14.5); WHITE BLOOD COUNT 5.9 10*3/uL (4.8-10.8)
== END ==
LOC: LAB 15:22
PROVIDERS: Family Medicine
DX: D50.9 Iron deficiency anemia, unspecified (principal)

== ENCOUNTER → 2018-12-17 | Outpatient (CLI) | payer OTHER ==
[~2018-12-17] MED LIST changes: +BASAG SOL SC; +BREO ELLIPTA 11 EACH INH; +COUMADIN6 M2 PO; +LOPRESSOR25 MG PO; +MIDODRINE HCL5 M1 PO; +NOVOLOG100 UNIT/1 SQ; +PROTONIX40 M1 IV; +SUPER B-50 COM1 EAC1 PO
== END | disposition home or self-care (01) ==
LOC: LAB 15:36
DX: R05 Cough (principal)

== ENCOUNTER → 2018-12-23 | Outpatient (CLI) | payer OTHER | END | disposition home or self-care (01) | LOC: CT 12:35 | DX: R91.1 Solitary pulmonary nodule (principal); I25.10 Atherosclerotic heart disease of native coronary artery without angina pectoris; J44.9 Chronic obstructive pulmonary disease, unspecified; Z95.4 Presence of other heart-valve replacement ==

== ENCOUNTER 2019-04-13 10:18 | Inpatient (IN) | payer OTHER ==
[~2019-04-13] VITALS: Ht 177.8 cm; Wt 116.8 kg
[2019-04-13 10:18] VITALS: BP 167/68
[~2019-04-13 10:18] MED LIST changes: -COUMADIN6 M2 PO
--- NOTE | 2019-04-13 11:52 | NUR ---
ABRASIONS CLEANED TO RIGHT KNEE/LOWER LEG. BACITRACIN APPLIED.
[2019-04-13 14:00] LABS: BASO % 0.6 % (0.0-1.0); EOS # 0.1 10*3/uL (0.0-0.4); EOS % 1.5 % (1.0-4.0); HEMATOCRIT 28.4 % (42.0-52.0); HEMOGLOBIN 9.1 g/dl (14.0-18.0); LYMPH # 0.5 10*3/uL (1.3-4.4); LYMPH % 6.6 % (27.0-41.0); MEAN CELL VOLUME 102.9 fl (80.0-94.0); MONO # 0.7 10*3/uL (0.1-1.0); MONO % 9.6 % (3.0-9.0); NEUT # 5.5 10*3/uL (2.3-7.9); NEUT % 80.8 % (47.0-73.0); PLATELET COUNT AUTOMATED 110 10*3/uL (130-400); RED BLOOD COUNT 2.76 10*6/uL (4.50-5.90); RED CELL DISTRI WIDTH 17.5 % (0-14.5); WHITE BLOOD COUNT 6.9 10*3/uL (4.8-10.8)
[2019-04-13 14:07] LABS: INTERNATIONAL NORM RATIO 1.8 (2.0-3.5)
[2019-04-13 14:15] LABS: ALBUMIN 3.2 gm/dl (3.1-4.5); CREATININE 8.45 mg/dL (0.70-1.30); POTASSIUM 5.4 mmol/L (3.5-5.1); TOTAL PROTEIN 7.6 gm/dL (6.4-8.2)
--- NOTE | 2019-04-13 14:20 | NUR ---
Time: 1419 A 69 year old MALE admitted to 4E under services of ANA LILIA KOO DO. Pt. arrived via bed from ER. Chief complaint: RIGHT TIBIAL FRACTURE. DEVANTE MOLINA
[2019-04-13 14:40] VITALS: BP 101/51
--- NOTE | 2019-04-13 15:10 | NUR ---
DR CHUA ROUNDED AND SEEN PT.
--- NOTE | 2019-04-13 15:20 | NUR ---
WOUND CARE PHOTOS COMPLETED PER PROTOCOL WITH EXCEPTION OF RIGHT LOWER EXTREMITY PER DR CHUA ORDER.
[2019-04-13] MEDS ORDERED: COUMADIN6 M2 PO (15:21)
--- NOTE | 2019-04-13 15:40 | NUR ---
PT TREANSPORTED VIA BED TO DIALYSIS ON 514.
--- NOTE | 2019-04-13 15:57 | NUR ---
NOTIFIED MARIUSZ GORE THAT HEPARIN ORDER HAD BEEN ACKNOWLEDGED BUT PT HAD ALREADY LEFT FLOOR FOR DIALYSIS. PER MARIUSZ GORE,SECURITY AND PRIVACY CONSULTANT, PT TO HAVE HEPARIN STARTED ONCE DIALYSIS WAS FINISHED AND HE RETURNED TO FLOOR.
--- NOTE | 2019-04-13 16:30 | NUR ---
DR BROWN NOTIFIED OF NEW CONSULT FOR CARDIAC CLEARANCE.
--- NOTE | 2019-04-13 16:34 | NUR ---
NOTIFIED DR HOOD'S ANSWERING SERVICE OF NEW CONSULT FOR ESRD.
--- NOTE | 2019-04-13 16:44 | NUR ---
MED RECONCILIATION COMPLETED AT BEDSIDE WITH .
--- NOTE | 2019-04-13 19:26 | NUR ---
PATIENT OFF FLOOR IN DIALYSIS AT THIS TIME.
--- NOTE | 2019-04-13 19:45 | NUR ---
DIALYSIS CALLED & STATES PT IS DONE WITH DIALYSIS AT THIS TIME. STATES HE HAS HAD 3.5 HOURS OF TREATMENT AND 4.1 KILOS REMOVED. WT 120.6 KG AT THIS TIME. WILL SEND PAs TO BRING PATIENT BACK TO THE FLOOR.
[2019-04-13 20:00] VITALS: BP 106/66
--- NOTE | 2019-04-13 20:09 | NUR ---
PT RETURNED TO FLOOR AT THIS TIME. VITAL SIGNS STABLE. PT DENIES ANY NEEDS AT PRESENT TIME. WILL MONITOR.
--- NOTE | 2019-04-13 20:37 | NUR ---
CALLED LAB TO DRAW STAT APTT ORDERED. STATES THEY WILL SEND MACHINIST 2ND SHIFT UP.
[2019-04-13 21:40] VITALS: BP 88/38
--- NOTE | 2019-04-13 21:57 | NUR ---
CALLED BACK. DISCUSSED BLOOD PRESSURE, DIALYSIS TODAY, AND CURRENT MEDICATIONS. INSTRUCTED TO GIVE ONE TIME DOSE OF MIDODRINE 5 MG. DISCUSSED PO METOPROLOL ORDERED FOR 2200 HELD DUE TO HYPOTENSION. IF HR > 110, INSTRUCTED TO GIVE METOPROLOL ORDERED.
--- NOTE | 2019-04-13 22:46 | NUR ---
PO MIDODRINE ADMINSITERED PER ONE TIME ORDER. WILL MONITOR EFFECTIVENESS.
--- NOTE | 2019-04-13 23:22 | NUR ---
PT HAD DROPPED EARLIER MIDODRINE DOSE, SO NEW ORDER PLACED SO THAT RN COULD RETRIEVE MEDICATION FROM PYXIS. PO MIDODRINE ADMINISTERED PER ORDER. WILL MONITOR EFFECTIVENESS.
--- NOTE | 2019-04-13 23:46 | NUR ---
NOTIFIED OF PATIENT'S C/O DIARRHEA SINCE COMING BACK FROM DIALYSIS. INSTRUCTED TO ORDER 1 DOSE IMODIUM NOW.
[2019-04-14] VITALS (7 sets, daily range): BP systolic 95–125; BP diastolic 57–73
[2019-04-14 03:20] LABS: BASO % 0.4 % (0.0-1.0); EOS # 0.1 10*3/uL (0.0-0.4); EOS % 1.2 % (1.0-4.0); HEMATOCRIT 28.1 % (42.0-52.0); HEMOGLOBIN 9.6 g/dl (14.0-18.0); LYMPH # 0.4 10*3/uL (1.3-4.4); LYMPH % 5.6 % (27.0-41.0); MEAN CORPUSCULAR HGB CONC 34.2 g/dl (33.0-37.0); MEAN PLATELET VOLUME 9.5 fl (9.6-12.3); MONO # 0.7 10*3/uL (0.1-1.0); MONO % 9.9 % (3.0-9.0); NEUT # 5.5 10*3/uL (2.3-7.9); NEUT % 81.7 % (47.0-73.0); PLATELET COUNT AUTOMATED 110 10*3/uL (130-400); RED BLOOD COUNT 2.82 10*6/uL (4.50-5.90); RED CELL DISTRI WIDTH 17.4 % (0-14.5); WHITE BLOOD COUNT 6.8 10*3/uL (4.8-10.8)
[2019-04-14 03:40] LABS: ALBUMIN 3.2 gm/dl (3.1-4.5); CREATININE 5.41 mg/dL (0.70-1.30); PHOSPHOROUS 3.3 mg/dL (2.5-4.9); TOTAL PROTEIN 7.5 gm/dL (6.4-8.2)
[2019-04-14 03:44] LABS: POTASSIUM 3.7 mmol/L (3.5-5.1)
[2019-04-14 03:52] LABS: MEAN CELL VOLUME 99.6 fl (80.0-94.0)
--- NOTE | 2019-04-14 04:00 | NUR ---
NEW IV SITE INITIATED IN L FOREARM WITH 22G CATHETER PER POLICY. IV MORPHINE ADMINISTERED SLOWLY AT THIS TIME FOR C/O PAIN IN RLE RATED 7/10. WILL MONITOR EFFECTIVENESS. CALL LIGHT LEFT IN REACH.
--- NOTE | 2019-04-14 06:33 | NUR ---
BRENDAN HARTMAN [id number] Please refer to the physician's history and physical for past medical history, comorbid conditions, and allergies. Diagnosis: FRACTURE OF DISTAL END OF RT TIBIA FALL Taiwo Score: 17,AT RISK WOUND DESCRIPTIONS: Patient has dressing intact to right lower extremity. Gary RN caring for patient stated that dressing should not be removed due to possible surgery. Patient has abrasions noted to bilateral knees. Left knee no drainage at time of assessment. Left knee 4.0cm x 3.5cm x 0.1cm. Right knee scant amount of serosanguineous drainage. right knee 5.0cm x 5.0cm x 0.1cm. Wound Number: 4 Location of the wound: left hand Type of wound: scab Thickness: Partial Size: 2.2cm x 1.2cm x <0.1cm Tunneling: none Undermining: none Sinus Tract: none Presence of Exudate: none Amount: None Color: Red Odor: None Periwound Skin Appearance: Normal Wound edges: approximated Pain (associated with wound): none at time of assessment How does patient state this happened? pt stated that he took a bandaid off and his skin came with it about 1 week ago Surface the patient is resting on: Isoflex SKIN PREVENTION RECOMMENDATION: 1. Pressure redistribution support surface as appropriate 2. Elevate heels 3. Remove boots/TEDS every shift and reapply 4. Head of bed 30 degrees as tolerated 5. Assess nutrition and hydration 6. Manage moisture 7. Avoid the use of containment devices while in bed 8. Use absorptive products on surfaces limit layers of linens on bed 9. Turn and reposition every 1-2 hours in bed and every 1 hour in chair as tolerated 10. Weight shifts every 15 minutes while up in chair 11. Offloading with pillows or device to keep heels elevated off bed 12. Monitor skin at least every shift 13. Inspect under medical devices twice a day WOUND TREATMENT RECOMMENDATIONS: Skin tear guidelines: Cleanse left hand with nss and apply sureprep around the wound hydrogel to wound bed and cover with optifoam gentle daily and prn for soiling. Partial thickness guidelines: Cleanse bilateral knees with nss and apply sureprep around the wound hydrogel to wound bed and cover with dsd daily and prn for soiling. Heel raiser pro boots to bilateral feet while in bed. Patient states he will follow with podiatry when he is discharged and he stated that he doesn't need to follow up anywhere for his left hand at this time he will care for that at home as he done before.
--- NOTE | 2019-04-14 07:55 | NUR ---
Occupational Therapy referral received. Patient admitted with fracture of distal end of right tibia. Awaiting orthopedic consult for weight bearing and activity retriction. Kalee Mcduffie OTR/L
--- NOTE | 2019-04-14 09:00 | NUR ---
Refinery Operator Light Ends Recovery in to talk to patient. Patient states lives at home with . There are few steps in the home. Physician: marti manriquez Pharmacy: [facility] Home health services: none Patient's level of ADLs: MINIMAL ASSIST Patient has working utilities: all working DME: home oxygen, portable tanks and nebulizer from [employer] Follow-up physician's appointment after d/c: will be made by hospitalist nurse director upon discharge Does patient want to access PORTAL?: no Discharge plan discussed with patient, he lives at home with , he isn't getting around very well after a fall, discussed with him a short term fpc for rehab prior to returning home, patient was inagreement with this, given choice of facilities he chose [facility], naval surface fire support planner will make referral to [facility]. patient will need an authorization from [employer] prior to being discharged to [facility], case management will follow. LOAN WAYNE
--- NOTE | 2019-04-14 10:13 | NUR ---
Nallely ALLISON notified of wound care recommendations.
--- NOTE | 2019-04-14 12:45 | NUR ---
Patient requesting a referral to [facility]. Contacted facility and faxed initial referral. Patient unable to participate in therapy at this time, will fax when available. Waiting on review/acceptance. Requires precert.
--- NOTE | 2019-04-14 13:44 | NUR ---
PHYSICAL THERAPY Physical therapy awaiting orthopedic consultation for weight bearing status prior to skilled PT evaluation. Will perform PT evaluation following confirmation of weight bearing status. Thank you. Gerda Peres,PT,DPT.
--- NOTE | 2019-04-14 16:53 | NUR ---
PATIENT COMPLAINS OF PAIN 7/10 TO LOWER LEG. MEDICATED PER ORDER. WILL CONTINUE TO MONITOR. RESTING IN BED AT THIS TIME. CALL LIGHT WITHIN REACH.
--- NOTE | 2019-04-14 17:11 | NUR ---
DR CHUA ROUNDED AND SEEN PT.
--- NOTE | 2019-04-14 22:35 | NUR ---
PT MEDICATED W/MORPHINE IVP FOR C/O RLE PAIN 03/14.
[2019-04-15] VITALS: BP 100/65
--- NOTE | 2019-04-15 05:36 | NUR ---
Upon discharge recommend patient to follow up for wound care in outpatient setting continue current wound care orders at discharging facility.
[2019-04-15 06:19] LABS: BASO % 0.4 % (0.0-1.0); EOS % 0.6 % (1.0-4.0); HEMATOCRIT 27.9 % (42.0-52.0); HEMOGLOBIN 8.9 g/dl (14.0-18.0); LYMPH # 0.5 10*3/uL (1.3-4.4); LYMPH % 8.6 % (27.0-41.0); MEAN CELL VOLUME 102.6 fl (80.0-94.0); MEAN CORPUSCULAR HGB 32.7 pg (27.0-31.0); MEAN CORPUSCULAR HGB CONC 31.9 g/dl (33.0-37.0); MONO # 0.8 10*3/uL (0.1-1.0); MONO % 14.6 % (3.0-9.0); NEUT # 3.9 10*3/uL (2.3-7.9); NEUT % 74.8 % (47.0-73.0); PLATELET COUNT AUTOMATED 98 10*3/uL (130-400); RED BLOOD COUNT 2.72 10*6/uL (4.50-5.90); RED CELL DISTRI WIDTH 17.2 % (0-14.5); WHITE BLOOD COUNT 5.2 10*3/uL (4.8-10.8)
[2019-04-15 06:52] LABS: POTASSIUM 3.7 mmol/L (3.5-5.1)
[2019-04-15 06:57] LABS: CREATININE 7.49 mg/dL (0.70-1.30)
--- NOTE | 2019-04-15 07:07 | NUR ---
PT LEFT UNIT AND WENT TO DIALYSIS.
[2019-04-15 08:00] VITALS: BP 100/62
--- NOTE | 2019-04-15 08:17 | NUR ---
Patient to have surgical repair 04/16/19. OTR will wait for activity restrictions s/p surgery. Kalee Mcduffie OTR/ash
--- NOTE | 2019-04-15 08:35 | NUR ---
PHYSICAL THERAPY Patient to have surgical repair 04/16/19. PT will assess patient following surgical procedure and confirmation of weight bearing/activity status. Thank you. Gerda Peres,PT,DPT.
--- NOTE | 2019-04-15 09:00 | NUR ---
case management visits with patient, he has been referred to [facility]. patient is scheduled for OR tomorrow and precert for [facility] will be initiated after that
[2019-04-15 12:00] VITALS: BP 110/61
--- NOTE | 2019-04-15 12:03 | NUR ---
PT C/O OF NAUSEA AND PAIN TO RIGHT LEF RATING 7/10 WI ZOFRAN AND MORPHINE GIVEN PER ORDER
--- NOTE | 2019-04-15 12:33 | NUR ---
PT RETING QUITELY IN BED WITH EYES CLOSED PRNS EFFECTIVE NO SIGNS OF DITRESS NO COMPLAINTS OF PLAIN
[2019-04-15 20:00] VITALS: BP 109/56
--- NOTE | 2019-04-15 20:00 | NUR ---
RESTING IN BED; PT. VOICES NO C/O AT THIS TIME.
--- NOTE | 2019-04-15 22:00 | NUR ---
BLOOD SUGAR 164; NO COVERAGE REQUIRED.
[2019-04-16] VITALS: BP 116/54
--- NOTE | 2019-04-16 04:00 | NUR ---
AWAKE & ALERT; VOICES NO C/O AT THIS TIME. HEPARIN GTT INFUSING WITHOUT DIFFIUCLTY. CALL LIGHT WITHIN REACH.
[2019-04-16 08:00] VITALS: BP 124/60
--- NOTE | 2019-04-16 08:30 | NUR ---
AND SURGERY NOTIFIED OF ELEVATED TEMP, PER SURGERY THEY WILL LET KNOW SOON THEY CAN, OK TO GIVE PO TYLENOL
--- NOTE | 2019-04-16 09:00 | NUR ---
case management visits with patient, he has been referred to [facility] [place] [facility] when medically stable for discharge, case management will follow
--- NOTE | 2019-04-16 10:53 | NUR ---
OFFICE NOTIFIED AND [facility] NOTIFIED OF CONSULT AND POSSIBLE SEPSIS
--- NOTE | 2019-04-16 10:56 | NUR ---
PHYSICAL THERAPY Patient having possible surgery this date. Fever this morning. Will hold on PT evaluation until following orthopedic surgery. Thank you. Gerda Peres,PT,DPT.
[2019-04-16 11:01] LABS: BASO % 0.2 % (0.0-1.0); EOS % 0.1 % (1.0-4.0); HEMATOCRIT 29.1 % (42.0-52.0); HEMOGLOBIN 9.4 g/dl (14.0-18.0); LYMPH # 0.2 10*3/uL (1.3-4.4); MEAN CELL VOLUME 102.8 fl (80.0-94.0); MEAN CORPUSCULAR HGB 33.2 pg (27.0-31.0); MEAN CORPUSCULAR HGB CONC 32.3 g/dl (33.0-37.0); MEAN PLATELET VOLUME 9.7 fl (9.6-12.3); MONO # 0.9 10*3/uL (0.1-1.0); NEUT # 8.3 10*3/uL (2.3-7.9); NEUT % 87.9 % (47.0-73.0); PLATELET COUNT AUTOMATED 111 10*3/uL (130-400); RED BLOOD COUNT 2.83 10*6/uL (4.50-5.90); RED CELL DISTRI WIDTH 17.3 % (0-14.5); WHITE BLOOD COUNT 9.5 10*3/uL (4.8-10.8)
[2019-04-16 11:14] LABS: CREATININE 6.14 mg/dL (0.70-1.30); POTASSIUM 4.5 mmol/L (3.5-5.1)
[2019-04-16 12:00] VITALS: BP 101/56
--- NOTE | 2019-04-16 15:42 | NUR ---
Nutritional Support Services: Pt was triggered for wound. He is currently NPO. Nutrition intervention is not appropriate until diet advances. Will monitor for advancement.
[2019-04-16 16:00] VITALS: BP 124/77
--- NOTE | 2019-04-16 17:35 | NUR ---
Patient scheduled for orthopedic surgery today but surgery on hold d/t fever. OT will wait until after surgery for evaluation. Kalee Mcduffie OTR/L
[2019-04-16 20:00] VITALS: BP 120/51; BP 129/69
--- NOTE | 2019-04-16 20:00 | NUR ---
RESTING IN BED WITH EYES CLOSED; RESPIRATIONS EASY & UNLABORED ON 02 2LPM VIA NASAL CANNULA. HEPARIN GTT INFUSING WITHOUT DIFFICULTY; SITE ASYMPTOMATIC. PT. VOICES NO C/O AT THIS TIME; NO DISTRESS NOTED. CALL LIGHT WITHIN REACH.
[2019-04-17] VITALS: BP 118/68
[2019-04-17 02:05] VITALS: BP 92/60
--- NOTE | 2019-04-17 04:00 | NUR ---
RESTING IN BED WITH EYES CLOSED. HEPARIN GTT CONTINUES TO INFUSE. 02 INTACT AT 2LITERS. TYLENOL GIVEN EARLIER EFFECTIVE. NO DISTRESS NOTED; CALL LIGHT WITHIN REACH.
[2019-04-17 07:33] LABS: CREATININE 8.03 mg/dL (0.70-1.30); POTASSIUM 4.8 mmol/L (3.5-5.1); TOTAL PROTEIN 7.6 gm/dL (6.4-8.2)
[2019-04-17 07:42] LABS: BASO % 0.1 % (0.0-1.0); HEMATOCRIT 27.9 % (42.0-52.0); HEMOGLOBIN 8.9 g/dl (14.0-18.0); LYMPH # 0.2 10*3/uL (1.3-4.4); LYMPH % 2.7 % (27.0-41.0); MEAN CELL VOLUME 101.5 fl (80.0-94.0); MEAN CORPUSCULAR HGB 32.4 pg (27.0-31.0); MEAN CORPUSCULAR HGB CONC 31.9 g/dl (33.0-37.0); MEAN PLATELET VOLUME 10.2 fl (9.6-12.3); MONO # 0.6 10*3/uL (0.1-1.0); NEUT # 5.9 10*3/uL (2.3-7.9); NEUT % 87.3 % (47.0-73.0); PLATELET COUNT AUTOMATED 104 10*3/uL (130-400); RED BLOOD COUNT 2.75 10*6/uL (4.50-5.90); RED CELL DISTRI WIDTH 17.2 % (0-14.5); WHITE BLOOD COUNT 6.8 10*3/uL (4.8-10.8)
[2019-04-17 08:00] VITALS: BP 104/66
[2019-04-17 10:00] VITALS: BP 110/52
--- NOTE | 2019-04-17 10:49 | NUR ---
updated clinicals faxed to [facility] for review. Patient's surgery delayed, will update [facility] on Saturday
--- NOTE | 2019-04-17 12:56 | NUR ---
Patient diagnosed with possible sepsis. Hold surgery and OT evaluation until after surgical repair or RLE. Thank you. Kalee Mcduffie OTR/L
--- NOTE | 2019-04-17 13:04 | NUR ---
PHYSICAL THERAPY Patient diagnosed with possible sepsis. Hold PT evaluation until possible surgical management complete. Thank you. Gerda Peres,PT,DPT
[2019-04-17 16:00] VITALS: BP 100/52
[2019-04-17 19:40] LABS: TROPONIN I 0.088 ng/ml (<0.045)
--- NOTE | 2019-04-17 19:42 | NUR ---
DR. WATSON NOTIFIED OF CRITICAL TROPONIN. NO NEW ORDERS AT THIS TIME.
[2019-04-17 20:00] VITALS: BP 96/61
--- NOTE | 2019-04-17 20:54 | NUR ---
CARDIOLOGY NOTIFIED OF ELEVATED TROPONIN PER REQUEST OF DR. WATSON.
--- NOTE | 2019-04-17 20:59 | NUR ---
DR. CALVILLO CALLED BACK REGARDING CRITICAL TROPONIN. WILL BE IN TOMORROW TO SEE PT. NO NEW ORDERS AT THIS TIME.
[2019-04-18] VITALS (16 sets, daily range): BP systolic 80–110; BP diastolic 40–69
--- NOTE | 2019-04-18 00:37 | NUR ---
DR. WATSON NOTIFIED OF PT BP AND HR. ORDERED TO GIVE PO LOPRESSOR AND RECHECK HR AND BP IN HALF AN HOUR.
--- NOTE | 2019-04-18 01:38 | NUR ---
DR. WATSON NOTIFIED OF HR IN 140'S. SHE STATES SHE WILL BE UP TO SEE PT. NO NEW ORDERS AT THIS TIME.
--- NOTE | 2019-04-18 02:00 | NUR ---
MESSAGE LEFT WITH CARDIOLOGY ANSWERING SERVICE REGARDING HEART RATE. AWAITING CALL BACK.
--- NOTE | 2019-04-18 02:06 | NUR ---
DR. CALVILLO CALLED BACK AND ORDERS REVEIVED.
--- NOTE | 2019-04-18 02:11 | NUR ---
DR. CALVILLO ORDERED DIGOXIN AND CARDIZEM TO BE GIVEN AT THIS TIME.
--- NOTE | 2019-04-18 03:23 | NUR ---
DR. WATSON NOTIFIED OF PT HR STILL IN 130'S-140'S. NO LENCHO ORDERS AT THIS TIME.
--- NOTE | 2019-04-18 03:27 | NUR ---
MESSAGE LEFT WITH ANSWERING SERVICE FOR CARDIOLOGY. AWAITING CALL BACK.
--- NOTE | 2019-04-18 03:33 | NUR ---
ORDERS RECEIVED FROM DR. CALVILLO.
--- NOTE | 2019-04-18 03:35 | NUR ---
500ML BOLUS OVER 2 HOURS INITIATED PER PRDER BY DR. CALVILLO. NO OTHER ORDERS AT THIS TIME.
[2019-04-18 06:16] LABS: EOS % 0.7 % (1.0-4.0); HEMATOCRIT 24.4 % (42.0-52.0); HEMOGLOBIN 7.9 g/dl (14.0-18.0); LYMPH # 0.2 10*3/uL (1.3-4.4); LYMPH % 4.9 % (27.0-41.0); MEAN CELL VOLUME 102.5 fl (80.0-94.0); MEAN CORPUSCULAR HGB 33.2 pg (27.0-31.0); MEAN CORPUSCULAR HGB CONC 32.4 g/dl (33.0-37.0); MEAN PLATELET VOLUME 9.9 fl (9.6-12.3); MONO # 0.9 10*3/uL (0.1-1.0); MONO % 19.2 % (3.0-9.0); NEUT # 3.3 10*3/uL (2.3-7.9); NEUT % 74.3 % (47.0-73.0); PLATELET COUNT AUTOMATED 93 10*3/uL (130-400); RED BLOOD COUNT 2.38 10*6/uL (4.50-5.90); RED CELL DISTRI WIDTH 17.6 % (0-14.5); WHITE BLOOD COUNT 4.5 10*3/uL (4.8-10.8)
[2019-04-18 06:20] LABS: ALBUMIN 2.5 gm/dl (3.1-4.5); CREATININE 5.37 mg/dL (0.70-1.30); POTASSIUM 4.5 mmol/L (3.5-5.1); TOTAL PROTEIN 6.9 gm/dL (6.4-8.2)
--- NOTE | 2019-04-18 08:59 | NUR ---
NOTIFIED DR CALVILLO OF PT HEART RATE 120'S TO 145 CONSISTENTLY.AFIB PER CM.BP 110/62. ORDERS RECIEVED.
--- NOTE | 2019-04-18 09:30 | NUR ---
0900 PT HTRT IN THE 120-140. PHYSISAN NOTIFIED AND ADDRESSED WITH SONIA LUCERO. NEW ORDER RECIVED FOR CARDIZEM BOLUS OF 10MG WITH A DRIP OF 5MG/HR AT THIS TIME. HEPARIN DRIP CONTINUES. WILL MONITOR.
--- NOTE | 2019-04-18 10:00 | NUR ---
P/S BP RECHECKED FOR 100/52. CARDIZEM CONTINUES AT 5MG/HR
--- NOTE | 2019-04-18 11:30 | NUR ---
DR. CHUA HERE TO SEE PT. DRESSING CHANGED WITH STAFF. NONADAPTIC, 4X4 AND ABD PLACED WITH THE SPINT WRAPPED AND INEVES BANDAGE.
--- NOTE | 2019-04-18 11:42 | NUR ---
PT C/O PAIN TO RT FRACTURED LEG. RATED 8/10. MEDICATED WITH PERCOCET ORDERED. CARDIZEM CONTINUES AT 5MG/HR. HT RT 100. WILL MONITOR. DR CHUA HERE FOR DRESSING CHANGE.
--- NOTE | 2019-04-18 13:00 | NUR ---
PT SITITNG UP ON THE SIUDE OF THE BED, EATING LUNCH. BP CHECKED FOR 80/40. PT DENIES BEING DIZZY OR LIGHTHEADED. PINK, WARM AND DRY. 1330- BP 88/42 DR. CALVILLO INTO SEE PT, MADE AWARE OG BP. HE VOICED HE WILL BE CHANGING CARDIZEM TO PO AND TAPERING OFF CARDIZEM IV. NO FURTHER ORDERS DISCUSSED. ANA LUISA CALDERON OVCT-SN - LISANDRA MCGOWAN BSN CLINICAL INSTRUCTOR
--- NOTE | 2019-04-18 14:30 | NUR ---
DR. CALVILLO CALLED WITH PTT PER POLICY WITH A RESULT OF 46.2. NEW ORDERS RECEI
--- NOTE | 2019-04-18 15:15 | NUR ---
DR HOOD ROUNDED AND ORDERS RECIEVED.
--- NOTE | 2019-04-18 17:22 | NUR ---
PT HYPOTENSIVE,PLACED PT IN [place] MANUAL BP 102/56.PT REMAINED IN THIS POSITION WILL CONTINUE TO MONITOR WHILE I START BLOOD TRANSFUSION. PT TOLERATED WELL AND STATED HE "FE;T ALOT BETTER THIS WAY. EDUCATION PROVIDED.
--- NOTE | 2019-04-18 17:30 | NUR ---
Informed consent obtained from patient for Blood transfussion by Dr. MARTE. Patient identified by arm band. Vital signs recorded. Blood unit number verified by 2 R.N.'s. I.V. site satisfactory. Unit 1 started at a KVO rate with Normal Saline. DEVANTE MOLINA
--- NOTE | 2019-04-18 18:15 | NUR ---
CARDIZEM GTT D/C PER TITRATION ORDER PER DR CALVILLO FOR HR LESS THAN 100.PT STABLE.DENIES CP/PRESSURE. DENIES SOB. HR 80-100,BUT CONSISTENTLY IN THE 90"S. WILL CONTINUE TO MONITOR.PRBC'S INFUSING @ 150 ML/HR. HEP GTT INFUSING @ 18 UNITS/KG/HR(22 ML/HR) PT TOLERATING WELL. NO LONGER HYPOTENSIVE. HR 80-HI 90"S.AFIB/CM. RESPS EASY ON 2LNC. DENIES ANY NEEDS AT THIS TIME. CALL LIGHT IN REACH.
[2019-04-18 20:55] LABS: ACT PARTIAL THROMBO TIME 46.2 SECONDS (20.0-32.1); INTERNATIONAL NORM RATIO 1.3 (2.0-3.5)
--- NOTE | 2019-04-18 22:00 | NUR ---
SPOKE TO DR. WEST REGARDING PT'S BLOOD PRESSURE & GIVING IS METOPROPOL. OKAY TO GIVEN PER DR. WEST.
--- NOTE | 2019-04-18 22:49 | NUR ---
MEDICATED WITH PERCOCET FOR C/O GENERALIZED DISCOMFORT. BLOOD SUGAR 171; COVERAGE PER EMAR. PT. VOICES NO OTHER C/O AT THIS TIME. CALL LIGHT WITHIN REACH.
[2019-04-19] VITALS: BP 105/69
--- NOTE | 2019-04-19 02:00 | NUR ---
RESTING IN BED WITH EYES CLOSED. HEPARIN GTT CONTINUES TO INFUSE. CALL LIGHT WITHIN REACH.
--- NOTE | 2019-04-19 06:30 | NUR ---
BLOOD SUGAR 156. PT. VOICES NO C/O AT THIS TIME. 02 INTACT. HEPARIN GTT INFUSING WITHOUT DIFFICULTY. CALL LIGHT WITHIN REACH.
[2019-04-19 08:00] VITALS: BP 110/60
[2019-04-19 12:00] VITALS: BP 108/54
[2019-04-19 16:00] VITALS: BP 104/64
--- NOTE | 2019-04-19 16:43 | NUR ---
PT REFUSED PREMEAL INSULIN DOSE OF 25 UNITS LUNCH AND DINNER. ACCUCHECK RANGE WNL BOTH MEALS. PATIENT DID NOT CONSUME LUNCH, STATED HE DID NOT LIKE IT. BRINGING NEXT MEAL.
[2019-04-19 20:00] VITALS: BP 101/52
--- NOTE | 2019-04-19 20:13 | NUR ---
PT MEDICATED W/PERCOCET FOR C/O RLE PAIN THROBBING 02/11. NIEVES WRAP INTACT. NEURO CHECKS INTACT. HEP GTT INFUSING ORDERED. CALL LIGHT IN REACH.
--- NOTE | 2019-04-19 22:00 | NUR ---
PT STATES THAT PRN PAIN MED WAS EFFECTIVE AND PAIN IS NOW A 5/10. CALL LIGHT IN REACH.
[2019-04-20] VITALS: BP 98/60
--- NOTE | 2019-04-20 01:32 | NUR ---
24 HR chart check completed.
--- NOTE | 2019-04-20 06:20 | NUR ---
PT MEDICATED W/IVP ZOFRAN FOR N/V. PT HAD SMALL EMESIS OF UNDIGESTED FOOD. WILL MONITOR FOR EFFECTIVENESS.
[2019-04-20 06:49] LABS: BASO % 0.6 % (0.0-1.0); EOS # 0.1 10*3/uL (0.0-0.4); EOS % 1.9 % (1.0-4.0); HEMATOCRIT 25.9 % (42.0-52.0); HEMOGLOBIN 8.5 g/dl (14.0-18.0); LYMPH # 0.3 10*3/uL (1.3-4.4); MEAN CORPUSCULAR HGB 32.8 pg (27.0-31.0); MEAN CORPUSCULAR HGB CONC 32.8 g/dl (33.0-37.0); MEAN PLATELET VOLUME 10.3 fl (9.6-12.3); MONO # 0.7 10*3/uL (0.1-1.0); MONO % 14.4 % (3.0-9.0); NEUT # 3.9 10*3/uL (2.3-7.9); NEUT % 76.4 % (47.0-73.0); PLATELET COUNT AUTOMATED 106 10*3/uL (130-400); RED BLOOD COUNT 2.59 10*6/uL (4.50-5.90); RED CELL DISTRI WIDTH 17.2 % (0-14.5); WHITE BLOOD COUNT 5.2 10*3/uL (4.8-10.8)
--- NOTE | 2019-04-20 06:49 | NUR ---
REPORT GIVEN TO DIALYSIS NURSE AT THIS TIME. OK TO BRING PT TO DIALYSIS AT THIS TIME.
--- NOTE | 2019-04-20 07:01 | NUR ---
PT LEAVING FLOOR VIA BED TO DIALYSIS.
[2019-04-20 07:12] LABS: CREATININE 8.19 mg/dL (0.70-1.30); POTASSIUM 4.7 mmol/L (3.5-5.1)
[2019-04-20 07:22] LABS: DIGOXIN 0.4 ng/ml (0.8-2.0)
--- NOTE | 2019-04-20 07:47 | NUR ---
PT. UNAVAILABLE OFF FLOOR FOR DIALYSIS.
[2019-04-20 08:30] VITALS: BP 104/58
--- NOTE | 2019-04-20 09:43 | NUR ---
PT REMAINS AT DIALYSIS.
--- NOTE | 2019-04-20 09:45 | NUR ---
PHYSICAL THERAPY Physical therapy evaluation attempted. Patient out of room for dialysis this date. Will attempt PT evaluation at a later time/date. Thank you. Gerda Peres,PT,DPT.
--- NOTE | 2019-04-20 11:34 | NUR ---
Occupational therapy orders received and chart reviewed. Patient unavailable for OT treatment this morning due to patient being at dialysis. OTR will follow up with patient this afternoon for OT evaluation. Thank you for the referral. Grace Otto OTR/L
[2019-04-20 12:00] VITALS: BP 104/58
--- NOTE | 2019-04-20 14:13 | NUR ---
PHYSICAL THERAPY Physical therapy evaluation attempted. Patient fatigued follow dialysis this date. Plan to return to complete PT evaluation at a later date. Thank you. Gerda Peres,PT,DPT.
--- NOTE | 2019-04-20 14:14 | NUR ---
Occupational Therapy offered this date with present. reports that he is "supposed" to have surgery 04/23/19. Patient reports that he has not been out of bed since hospital stay and that he"could not put weight on his right leg" OT reported that she understood he was NWB on RLE. Patient requested OT attempt at another date. Kalee Mcduffie OTR/Raheem
[2019-04-20 16:00] VITALS: BP 100/64
[2019-04-20 20:00] VITALS: BP 102/60
--- NOTE | 2019-04-20 22:25 | NUR ---
PT C/O NAUSEA W/DRY HEAVING. PT MEDICATED W/IVP ZOFRAN. WILL MONITOR.
[2019-04-21] VITALS (7 sets, daily range): BP systolic 98–128; BP diastolic 45–75
[2019-04-21 00:03] LABS: ADENOVIRUS Negative (Negative); INFLUENZA A Negative (Negative); INFLUENZA B Negative (Negative); METAPNEUMOVIRUS Negative (Negative); PARAINFLUENZA 1 Negative (Negative); PARAINFLUENZA 2 Negative (Negative); PARAINFLUENZA 3 Negative (Negative); RHINOVIRUS Negative (Negative); RSV A Negative (Negative); RSV B Negative (Negative)
--- NOTE | 2019-04-21 06:39 | NUR ---
DR. PLATT NOTIFIED OF PT'S C/O INDIGESTION AND NO ORDERS FOR ANTACID AT THIS TIME. OK FOR ONE TIME DOSE OF TUMS.
[2019-04-21 07:31] LABS: BASO % 0.5 % (0.0-1.0); EOS # 0.1 10*3/uL (0.0-0.4); EOS % 1.9 % (1.0-4.0); HEMOGLOBIN 8.3 g/dl (14.0-18.0); LYMPH # 0.3 10*3/uL (1.3-4.4); LYMPH % 5.7 % (27.0-41.0); MEAN CELL VOLUME 101.2 fl (80.0-94.0); MEAN CORPUSCULAR HGB 32.3 pg (27.0-31.0); MEAN CORPUSCULAR HGB CONC 31.9 g/dl (33.0-37.0); MEAN PLATELET VOLUME 10.5 fl (9.6-12.3); MONO # 0.9 10*3/uL (0.1-1.0); MONO % 15.7 % (3.0-9.0); NEUT # 4.3 10*3/uL (2.3-7.9); NEUT % 74.6 % (47.0-73.0); PLATELET COUNT AUTOMATED 128 10*3/uL (130-400); RED BLOOD COUNT 2.57 10*6/uL (4.50-5.90); WHITE BLOOD COUNT 5.8 10*3/uL (4.8-10.8)
[2019-04-21 07:59] LABS: CREATININE 5.12 mg/dL (0.70-1.30); POTASSIUM 4.5 mmol/L (3.5-5.1)
--- NOTE | 2019-04-21 08:34 | NUR ---
BRENDAN HARTMAN [id number] Please refer to the physician's history and physical for past medical history, comorbid conditions, and allergies. Diagnosis: FRACTURE OF DISTAL END OF RT TIBIA FALL Taiwo Score: 17,AT RISK WOUND DESCRIPTIONS: Patient has dressing intact to right lower extremity. Filiberto RN caring for patient stated that dressing should not be removed due to possible surgery once Dr. Betancourt evaluates the patients. Patient has intact scabbed areas noted to bilateral knees. No redness surrounding areas no drainage noted at time of assessment. Wound Number: 4 Location of the wound: left hand Type of wound: scab Thickness: Partial Size: 1.0cm x 0.3cm x <0.1cm Tunneling: none Undermining: none Sinus Tract: none Presence of Exudate: serous Amount: light Color: Red Odor: None Periwound Skin Appearance: Normal Wound edges: approximated Pain (associated with wound): none at time of assessment How does patient state this happened? pt stated that he took a bandaid off and his skin came with it about 1 week ago Surface the patient is resting on: Isoflex SKIN PREVENTION RECOMMENDATION: 1. Pressure redistribution support surface as appropriate 2. Elevate heels 3. Remove boots/TEDS every shift and reapply 4. Head of bed 30 degrees as tolerated 5. Assess nutrition and hydration 6. Manage moisture 7. Avoid the use of containment devices while in bed 8. Use absorptive products on surfaces limit layers of linens on bed 9. Turn and reposition every 1-2 hours in bed and every 1 hour in chair as tolerated 10. Weight shifts every 15 minutes while up in chair 11. Offloading with pillows or device to keep heels elevated off bed 12. Monitor skin at least every shift 13. Inspect under medical devices twice a day WOUND TREATMENT RECOMMENDATIONS: Continue current orders.
--- NOTE | 2019-04-21 09:00 | NUR ---
case management visits with patient, present, he will be going to [facility] when surgery has been completed and he is medically stable for discharge, case management will follow
--- NOTE | 2019-04-21 10:30 | NUR ---
Another Multi-Disciplinary Team meeting was held on 04/21/19, for the purpose of discharge planning. The patient was referred to the following services for follow-up: patient has been referred to [facility] after surgery, potential discharge for Saturday [place]
--- NOTE | 2019-04-21 10:30 | NUR ---
PHYSICAL THERAPY Physical therapy evaluation complete, 4E. Moderate complexity PT evaluation (24213) per chart review and evaluation. Precautions: Fall risk, Non-Weight Bearing RIGHT LE, pending possible Right LE surgery. PT to progress with bed mobility, transfers, and gait via POC. Recommend SNF at discharge. Thank you. Gerda Peres,PT,DPT
--- NOTE | 2019-04-21 10:30 | NUR ---
Occupational Therapy evaluation completed on 4 with full eval to follow. Precautions include AV shunt RUE,fall risk, strict NWB RLE, heparin drip, obesity, dialysis; M,W,F, +3 mod/max assist to stand with assist for RLE NWB maintainance. Patient able to perform sit to stand w/ above assist but not able to transfer or move LLE and maintain NWB RLE without assist and constant verbal instruction, high complexity level 91107 via chart review, testing and evalaution. Recommend OT per pOC to address bed mobility,standing tolerance progressing to ADL transfers, self care training and SNF to enable return home w/ . Patient may have surgery on right ankle 04/23/19 if medically stable. Thank you. Kalee Mcduffie OTR/L
--- NOTE | 2019-04-21 20:37 | NUR ---
NOTIFIED FROM BASKETBALL ASSEMBLER THAT PATIENT HAD A 20 BEAT RUN OF [facility].
--- NOTE | 2019-04-21 20:50 | NUR ---
DR. PLATT NOTIFIED OF 20 BEAT RUN OF [facility]. ORDERS RECIEVED.
[2019-04-21 21:22] LABS: CREATININE 5.9 mg/dL (0.70-1.30)
[2019-04-21 21:23] LABS: PHOSPHOROUS 5.6 mg/dL (2.5-4.9)
--- NOTE | 2019-04-21 21:47 | NUR ---
DR. KO CALLED BACK AND STATED TO CONTINUE LOPRESSOR AND MONITOR PATIENT.
--- NOTE | 2019-04-21 22:49 | NUR ---
PATIENT COMPLAINED OF FEELNIG NAUSEOUS. REQUESTED ZOFRAN. ZOFRAN GIVEN. WILL ASSESS FOR EFFECTIVENESS.
--- NOTE | 2019-04-21 23:52 | NUR ---
PATIENT STATED ZOFRAN WAS EFFECTIVE. RESTING IN BED. CALL LIGHT WITHIN REACH. BED LOCKED AND IN LOWEST POSITION. SIDE RAILS UP X2.
[2019-04-22] VITALS: BP 113/52
--- NOTE | 2019-04-22 01:44 | NUR ---
24 HR chart check completed.
[2019-04-22 05:18] VITALS: BP 112/62
--- NOTE | 2019-04-22 05:24 | NUR ---
PATIENT COMPLAINED OF NAUSEA. ZOFRAN GIVEN PER PATIENT REQUEST. WILL ASSESS FOR EFFECTIVENESS.
[2019-04-22 06:08] LABS: BASO % 0.4 % (0.0-1.0); EOS # 0.1 10*3/uL (0.0-0.4); EOS % 1.8 % (1.0-4.0); HEMATOCRIT 24.2 % (42.0-52.0); HEMOGLOBIN 7.7 g/dl (14.0-18.0); LYMPH # 0.5 10*3/uL (1.3-4.4); LYMPH % 7.9 % (27.0-41.0); MEAN CELL VOLUME 102.1 fl (80.0-94.0); MEAN CORPUSCULAR HGB 32.5 pg (27.0-31.0); MEAN CORPUSCULAR HGB CONC 31.8 g/dl (33.0-37.0); MEAN PLATELET VOLUME 10.1 fl (9.6-12.3); MONO # 0.8 10*3/uL (0.1-1.0); MONO % 13.4 % (3.0-9.0); NEUT # 4.2 10*3/uL (2.3-7.9); NEUT % 74.2 % (47.0-73.0); PLATELET COUNT AUTOMATED 121 10*3/uL (130-400); RED BLOOD COUNT 2.37 10*6/uL (4.50-5.90); WHITE BLOOD COUNT 5.7 10*3/uL (4.8-10.8)
[2019-04-22 06:22] LABS: CREATININE 6.51 mg/dL (0.70-1.30); POTASSIUM 4.5 mmol/L (3.5-5.1)
--- NOTE | 2019-04-22 07:03 | NUR ---
APTT 48.5 NO CHANGE ON THE HEPARIN DRIP NEEDED.
--- NOTE | 2019-04-22 07:30 | NUR ---
Patient resting quietly with no c/o discomfort. Respirations easy and regular. Vital signs stable. No overt distress. FLORIN ARNOLD
--- NOTE | 2019-04-22 08:11 | NUR ---
24 HR chart check completed.
--- NOTE | 2019-04-22 08:30 | NUR ---
OT NOTE Patient was seen this date for 15 minutes of occupational therapy treatment. Patient was supine in bed upon arrival and was agreeable to treatment. Patient was NWB RLE with good safety throughout treatment. Patient performed bed mobility with Min Ax1 with assistance with RLE. Patient seated EOB completed grooming tasks to increase seated balance. Patient demonstrated good balance however required RBs in between tasks. Patient required Max A for donning socks. Patient will be educated on lower body AE during next treatment. Patient performed 2 functional sit/stands from EOB with Max Ax1 and Mod Ax1 to standing. Patient had good safety with weight bearing precautions during transfer and stance. Patient able to stand for approximately 30 seconds before needing a rest break. Patient performed bed mobility back into bed with Min Ax1 for the RLE. Nursing present in room at end of OT treatment to change dressings. Patient had all needs within reach. Patient would benefit from continued OT treatment to maximize independence in ADLs and transfers. Grace Otto, OTR/L
--- NOTE | 2019-04-22 09:34 | NUR ---
PHYSICAL THERAPY PT SUPINE IN BED SLEEPING UPON ARRIVAL WITH BED ALARM ON. PT IDENTIFIED BY NAME AND . PT AGREED TO ALL PHYSICAL THERAPY TREATMENT THIS VISIT. PT PERFORMED BED MOBILITY WITH Jodie X1. PT PERFORMED SUPINE TO SITTING EOB WITH Jodie X1 AND USE OF BED RAIL. PT PERFORMED STS X2 FROM EOB TO FWW WITH MAXa X1 ON L SIDE AND MODa X1 ON R SIDE. VC'S FOR NMB GIVEN THROUGHOUT SESSION. PT PERFORMED SITTNG EOB TO SUPINE WITH Jodie X1 WITH RLE. PT REQUIRED MAXa X 3 FOR LIFT TO HEAD OF BED. PT SUPINE IN BED WITH DOCTOR PRESENT AT END OF SESSION. EDUCATED DOCTOR THAT PTS BED ALARM WAS ON AT START OF SESSION AND ASK DOCTOR TO TURN BACK ON WHEN DOCTOR WAS DONE. PT REPORTS NO OTHER NEEDS AT THIS TIME. PT SEEN 1:1 FOR 14MIN. AGUILAR BRITT PTA
--- NOTE | 2019-04-22 10:00 | NUR ---
PT REFUSING DRESSING CHANGE TO L HAND.
--- NOTE | 2019-04-22 11:42 | NUR ---
Faxed clinical updates and therapy evals/notes to [facility]. Explained to Maame if patient is able to have surgery tomorrow, we would like precert started so auth will cover the weekend. She will start precert afternoon if patient is able to participate with therapy
--- NOTE | 2019-04-22 13:23 | NUR ---
DR CALVILLO NOTIFIED OF PLANS FOR AM SURGEY AND STATES TO ASK DR FERRARI IF SHE WANTS TO HOLD THE HEPARIN, RECOMMENDING TO STOP 4-6HRS PRIOR TO SURGERY.
--- NOTE | 2019-04-22 14:07 | NUR ---
OT Note-Refusal Patient chart has been reviewed. Patient refusing second OT treatment at this time due to "being worn out from dialysis". Patient requested to be seen another day for therapy. OT will follow up when appropriate. Thank you. Grace Otto OTR/L
[2019-04-22 16:00] VITALS: BP 116/58
[2019-04-22 16:54] LABS: HEMATOCRIT 26.5 % (42.0-52.0); HEMOGLOBIN 8.6 g/dl (14.0-18.0)
[2019-04-22 20:00] VITALS: BP 102/47
[2019-04-22 20:14] VITALS: BP 108/56
[2019-04-22 22:20] VITALS: BP 106/56
[2019-04-23] VITALS: BP 110/63
--- NOTE | 2019-04-23 00:04 | NUR ---
24 HR chart check completed.
--- NOTE | 2019-04-23 05:30 | NUR ---
HEPARIN DRIP STOPPED PER ORDER.
[2019-04-23 06:08] LABS: CREATININE 4.57 mg/dL (0.70-1.30); POTASSIUM 4.4 mmol/L (3.5-5.1)
--- NOTE | 2019-04-23 06:08 | NUR ---
CALLED SURGERY AND THEY SAID TO GIVEN THE LOPRESSOR AND CARDIZEM WITH A SIP OF WATER.
[2019-04-23 06:09] LABS: BASO % 0.7 % (0.0-1.0); EOS # 0.1 10*3/uL (0.0-0.4); EOS % 2.5 % (1.0-4.0); HEMATOCRIT 26.2 % (42.0-52.0); HEMOGLOBIN 8.2 g/dl (14.0-18.0); LYMPH # 0.6 10*3/uL (1.3-4.4); LYMPH % 9.7 % (27.0-41.0); MEAN CELL VOLUME 101.9 fl (80.0-94.0); MEAN CORPUSCULAR HGB 31.9 pg (27.0-31.0); MEAN CORPUSCULAR HGB CONC 31.3 g/dl (33.0-37.0); MEAN PLATELET VOLUME 9.9 fl (9.6-12.3); MONO # 0.7 10*3/uL (0.1-1.0); NEUT # 4.1 10*3/uL (2.3-7.9); NEUT % 72.3 % (47.0-73.0); PLATELET COUNT AUTOMATED 146 10*3/uL (130-400); RED BLOOD COUNT 2.57 10*6/uL (4.50-5.90); RED CELL DISTRI WIDTH 17.8 % (0-14.5); WHITE BLOOD COUNT 5.7 10*3/uL (4.8-10.8)
--- NOTE | 2019-04-23 07:04 | NUR ---
PATIENT HAD MORNING LAB WHICH INCLUDED GLUCOSE SO NO BEDSIDE GLUCOSE WAS DONE.
--- NOTE | 2019-04-23 07:38 | NUR ---
PER DR. REYES HEPARIN TO BE RESTARTED NOW.
--- NOTE | 2019-04-23 08:20 | NUR ---
PHYSICAL THERAPY Patient was approached for therapy this AM and he declined therapy because he is depressed. He says he is really disappointed that Dr. Betancourt is NOT going to do his therapy today becuase she is ill. Patient requested that therapy come back later in the morning. Will check back with patient at 11:00 AM. PACO RAMÍREZ STEAM BOX OPERATOR
--- NOTE | 2019-04-23 09:30 | NUR ---
PER FLIGHT TEST ENGINEER PATIENT DEPRESSED AT THIS TIME D/U INABILITY TO RECIEVED SURGERY THIS DAY DOCTOR IS SICK. PATIENT REQUESTED NO THERAPY AT THIS TIME. WILL CHECK BACK AT LATER TIME. RASHEL HARRIS/Raheem
--- NOTE | 2019-04-23 11:05 | NUR ---
PHYSICAL THERAPY Patient was approached for therapy a second time at 11:00 am and he declined again, saying he did not feel like it and he was still depressed. Will check back this PM. PACO RAMÍREZ BARREL LATHE OPERATOR INSIDE
--- NOTE | 2019-04-23 11:22 | NUR ---
Surgery scheduled for 8:30 AM 04/24/19 on Saturday which is a dialysis day. According to NIC Alicia, Dr. Carmen (waste collection driver) he wants patient to have dialysis prior to surgery, this would make chair time around 3:30 AM. Contacted Rica from Dr. Betancourt's office and explained situation. Rica is looking into this and will call back.
--- NOTE | 2019-04-23 11:44 | NUR ---
Patient will have dialysis at 7 am in the morning and surgery scheduled at 11 am tomorrow morning (04/24/19)
--- NOTE | 2019-04-23 11:45 | NUR ---
PT TO DO DIALYSIS TOMORROW AM AT 0700 AND GO TO SURGERY FOLLOWING HIS TREATMENT. DIALYSIS, SURGERY, AND DR. FERRARI'S OFFICE AWARE OF PLAN.
[2019-04-23 11:53] VITALS: BP 115/80
--- NOTE | 2019-04-23 13:28 | NUR ---
PHYSICAL THERAPY Patient presented to therapy in supine with head of bed elevated and bed alarm activated. Patient was identified by name and on wristband. Patient gives informed consent for treatment. Patient is on 3 liters of spO2 via nasal canula. Patient performed supine to sitting at EOB transfer with MIN A X 1. Patient sat on EOB unassisted and with some moderate dizziness for 30 seconds or so. Patient transferred sit to stand from EOB with MIN A X 2 with verbal cues for pushing off EOB with hands and for keeping wt off of R LE. Patient stood at Walker 3 seperate attempts : 1st) 1 min. 14 seconds 2nd) 2 minutes 3rd) 1 minute with CGA X 2 each time. Patient required verbal cues for upright posture, maintaining NWB on R LE, and and pushing down on walker with UEs. Patient transferred back to supine in bed with MOD A X 2. Patient was left in supine with head of bed elevated, call light within reach, and bed alarm activated. Patient's was present visitng with patient. Patient was 1:1 with this SHEET METAL ASSEMBLER AND RIVETER for 20 minutes total. PACO RAMÍREZ SHEET METAL ASSEMBLER AND RIVETER
--- NOTE | 2019-04-23 13:28 | NUR ---
OT NOTE PATIENT SEEN FOR 15 MINUTE SESSION THIS DAY AND IDENTIFIED BY NAME AND . PATIENT SUPINE IN BED WITH HOB ELEVATED UPON ARRIVAL. BED MOBILITY FOR SUPINE TO SIT EOB REQUIRING SBA. STS FROM EOB COMPLETED 3X'S WITH CGA/MIN A PATIENT ABLE TO STAND FOR 1 MINUTE 14 SECONDS, 2 MINUTES, AND 1 MINUTE. PATIENT STATED HE IS SCHEDULED FRO SURGERY TOMORROW AROUND 11:00 A.M. PATIENT REQUIRED MIN A FOR LE'S SIT TO SUPINE. PATIENT ENDED SESSION SUPINE IN BED WITH HOB ELEVATED AND ALL ITEMS IN PLACE. CONTINUE WITH CURRENT POC AND D/C PLAN TO SNF. RASHEL RODRIGUEZ
[2019-04-23 15:54] VITALS: BP 114/70
[2019-04-23 20:00] VITALS: BP 100/55
[2019-04-23 22:00] VITALS: BP 102/56
[2019-04-24] VITALS (12 sets, daily range): BP systolic 91–117; BP diastolic 47–67
--- NOTE | 2019-04-24 06:00 | NUR ---
HEPARIN DRIP STOPPED. PATIENT HEP-LOCKED. CARDIZEM AND LOPRESSOR GIVEN.
--- NOTE | 2019-04-24 06:51 | NUR ---
PATIENT TAKEN TO DIALYSIS.
--- NOTE | 2019-04-24 09:00 | NUR ---
case mangement visits with patient, patient scheduled for surgery this afternoon, patient has been referred to [facility] but is not able to be discharged until authorization from insurance company is obtained, patient will need to work with physical and occupational therapy on Saturday and new clinicals will need to be send to [facility] for authorization, shoe lay out planner and case management will follow
--- NOTE | 2019-04-24 09:10 | NUR ---
Assessed patient while in dialysis. Patient comfortable, no signs of distress.
--- NOTE | 2019-04-24 09:29 | NUR ---
PHYSICAL THERAPY Pt was out of roon upon attempt this A.M. Physical Therapy will try at a later time/date. Linda Priest PTA
--- NOTE | 2019-04-24 10:00 | NUR ---
Patient to have dialysis today then surgery on RLE by Dr Betancourt. Kalee Mcduffie OTR/L
[2019-04-24 12:06] LABS: CREATININE 3.01 mg/dL (0.70-1.30); POTASSIUM 3.9 mmol/L (3.5-5.1)
--- NOTE | 2019-04-24 13:41 | NUR ---
PHYSICAL THERAPY CO-SIGN I approve of the Physical Therapy notes written above. PEDRO MARIA PT,DPT
--- NOTE | 2019-04-24 13:45 | NUR ---
PHYSICAL THERAPY Patient was out of his room for Surgery this pm and not available for therapy at this time. Will continue per POC as able. Ronald Steinberg, SOFTWARE QUALITY TEST ENGINEER
--- NOTE | 2019-04-24 14:10 | NUR ---
Per request of Dr. Giron, spoke with Dr. Villasenor regarding resumption of Heparin drip. Per cardiology Dr. Betancourt will determine that post op. Dr. Villasenor would like nursing to verify resumption of Coumadin with Dr. Betancourt. Will follow up. Relayed message to Dr. Calle.
--- NOTE | 2019-04-24 14:58 | NUR ---
OCCUPATIONAL THERAPY CO-SIGN I approve of the Occupational Therapy notes written above. LETTY PHOENIX OTR/Raheem
[2019-04-24 16:42] LABS: HEMATOCRIT 25.4 % (42.0-52.0)
--- NOTE | 2019-04-24 17:50 | NUR ---
Percocet given for surgical pain rated 10/10. Will monitor.
--- NOTE | 2019-04-24 18:43 | NUR ---
Percocet not effective. Notified Dr. Calle that patient is still rating his post op pain 10/10. Physician to review no new orders at this time.
--- NOTE | 2019-04-24 20:00 | NUR ---
RESTING IN BED WITH EYES CLOSED. 02 INTACT. LUNGS DIMINISHED BILATERALLY; IS AT BEDSDIE. NO DISTRESS NOTED; WILL CONTINUE TO MONITOR. CALL LIGHT WITHIN REACH.
--- NOTE | 2019-04-24 23:37 | NUR ---
MEDICATED WITH PERCOCET FOR C/O RIGHT KNEE PAIN.
[2019-04-25] VITALS: BP 123/45
--- NOTE | 2019-04-25 04:00 | NUR ---
RESTING IN BED WITH EYES CLOSED. PAIN MEDICATION GIVEN EARLIER APPARENTLY EFFECTIVE. CALL LIGHT REMAINS WITHIN REACH.
--- NOTE | 2019-04-25 06:25 | NUR ---
BLOOD SUGAR 137.
--- NOTE | 2019-04-25 06:30 | NUR ---
MEDICATED WITH PERCOCET FOR PAIN IN RIGHT LEG FROM SURGERY.
[2019-04-25 07:06] LABS: HEMATOCRIT 25.6 % (42.0-52.0); HEMOGLOBIN 7.9 g/dl (14.0-18.0); MEAN CELL VOLUME 104.5 fl (80.0-94.0); MEAN CORPUSCULAR HGB 32.2 pg (27.0-31.0); MEAN CORPUSCULAR HGB CONC 30.9 g/dl (33.0-37.0); MEAN PLATELET VOLUME 9.6 fl (9.6-12.3); PLATELET COUNT AUTOMATED 177 10*3/uL (130-400); RED BLOOD COUNT 2.45 10*6/uL (4.50-5.90); RED CELL DISTRI WIDTH 17.5 % (0-14.5)
[2019-04-25 07:19] LABS: POTASSIUM 4.5 mmol/L (3.5-5.1)
[2019-04-25 07:28] LABS: ALBUMIN 2.5 gm/dl (3.1-4.5); CREATININE 4.43 mg/dL (0.70-1.30); PHOSPHOROUS 4.2 mg/dL (2.5-4.9); TOTAL PROTEIN 6.6 gm/dL (6.4-8.2)
[2019-04-25 07:29] LABS: PLATELET SUFFICIENCY NORMAL (NORMAL); TOTAL CELLS COUNTED 100 #CELLS
[2019-04-25 07:59] VITALS: BP 100/56
--- NOTE | 2019-04-25 08:12 | NUR ---
PT CONTINUED TO HAVE PAIN SINCE PERCOCET WAS GIVE BEFORE SHIFT. MEDICATED WITH TYLENOL FOR PAIN RATE 03/14. DR BARNARD UPDATED ON CONTINUED PAIN. ANA LUISA CALDERON OVCT RN STUDENT / LISANDRA CARBAJALN CLINICAL INSTRUCTOR
--- NOTE | 2019-04-25 10:00 | NUR ---
PHYSICAL THERAPY PATIENT SEEN TODAY IN ROOM FOR 1:1 TREATMENT. NEW ORDERS CAME THROUGH YESTERDAY FROM DR FERRARI POST OPERATIVELY FOR WBAT ON THE RLE. UPON ASSESSMENT TODAY PATIENT IS IN SOFT SPLINT FROM MID THIGH TO FOOT AND WITH A GREAT DEAL OF PAIN WHICH IS BEING MANAGED WITH NURSING WITH MEDICATION. WAS ABLE TO GET UP AND TO RECLINER WITH FWW AND MAX OF 2 BUT OPTED TO MAINTAIN NWB STATUS UNTIL CLARIFICATION OF WB CAN BE CLEARED WITH ORTHO BY NURSING WHEN SHE IS HERE TODAY. ABLE TO PIVOT ONLY ON THE LLE AND NOT TAKE ANY ACTUAL STEPS. BED MOBILITY IS MOD TO MAX OF 1 FOR SUP TO SIT AND MAX OF 1 FOR SIT TO SUPINE WHILE ROLLING IS MIN OF 1 WITH RAILINGS. TOLERATED UP IN CHAIR WELL. SPOKE WITH PATIENTS NURSE WHO STATES SHE WILL CLARIFY WITH DR FERRARI WHEN SHE IS HERE REGARDING WB STATUS. NEW GOAL FOR GAIT AND WB STATUS TO BE ADDED ONCE CLARIFIED. CLIFTON ARMANDO PT
--- NOTE | 2019-04-25 10:06 | NUR ---
MORPHINE GIVE FOR CONTINUED POSTOP PAIN. V/S STABLE SPO2 96% 2L/MIN B/P 110/60 WILL MONITOR. 1125-RESTING COMFORTABLE, MORPHINE EFFECTIVE FOR PAIN. 1200-HEPARIN STARTED PER PROTCOL ORDERED ANA LUISA BRAXTON RN STUDENT / LISANDRA CARBAJALN CLINICAL INSTRUCTOR
--- NOTE | 2019-04-25 10:09 | NUR ---
Left message with cardiology to verify orders. Awaiting response.
--- NOTE | 2019-04-25 10:57 | NUR ---
Left message with [facility] to return call to verify which Heparin protocol to use. Awaiting response.
--- NOTE | 2019-04-25 11:22 | NUR ---
Spoke with Dr. Ibarra to clarify heparing protocol. Per physician use the [place] heparin protocol.
[2019-04-25 12:00] VITALS: BP 108/52
--- NOTE | 2019-04-25 13:35 | NUR ---
Percocet not effective. See EMar.
--- NOTE | 2019-04-25 13:45 | NUR ---
Percocet given per patient request for c/o surgical pain in RLE. Patient visabley uncomfortable. Will monitor.
--- NOTE | 2019-04-25 14:45 | NUR ---
Morphine given per patient reqeust for c/o surgical pain rated 9/10. Will monitor.
[2019-04-25 16:00] VITALS: BP 111/61
--- NOTE | 2019-04-25 18:46 | NUR ---
Morphine given per patient request for c/o surgical pain in RLE. Pain was rated 6/10. Will monitor.
[2019-04-25 20:00] VITALS: BP 106/55; BP 116/54
[2019-04-26] VITALS: BP 102/50
--- NOTE | 2019-04-26 01:12 | NUR ---
24 HR chart check completed.
--- NOTE | 2019-04-26 05:13 | NUR ---
PATIENT REQUESTING PAIN MEDICATION FOR RIGHT LEG PAIN RATED 6/10 ON 0/10 SCALE. PERCOCET ADMINISTERED PRESCRIBED. WILL MONITOR FOR EFFECTIVENESS.
[2019-04-26 05:46] LABS: HEMATOCRIT 23.7 % (42.0-52.0); HEMOGLOBIN 7.3 g/dl (14.0-18.0); MEAN CELL VOLUME 105.8 fl (80.0-94.0); MEAN CORPUSCULAR HGB 32.6 pg (27.0-31.0); MEAN CORPUSCULAR HGB CONC 30.8 g/dl (33.0-37.0); MEAN PLATELET VOLUME 9.4 fl (9.6-12.3); PLATELET COUNT AUTOMATED 142 10*3/uL (130-400); RED BLOOD COUNT 2.24 10*6/uL (4.50-5.90); RED CELL DISTRI WIDTH 17.9 % (0-14.5); WHITE BLOOD COUNT 5.6 10*3/uL (4.8-10.8)
[2019-04-26 06:13] LABS: PLATELET SUFFICIENCY NORMAL (NORMAL); POLYCHROMASIA SLIGHT; TOTAL CELLS COUNTED 100 #CELLS
[2019-04-26 06:15] LABS: CREATININE 5.96 mg/dL (0.70-1.30); POTASSIUM 4.4 mmol/L (3.5-5.1)
[2019-04-26 06:20] LABS: ACT PARTIAL THROMBO TIME 48.6 SECONDS (20.0-32.1); INTERNATIONAL NORM RATIO 1.1 (2.0-3.5)
--- NOTE | 2019-04-26 07:36 | NUR ---
MORPHINE GIVEN FOR C/O RT LEG PAIN. RATES 8/10 ON PAIN SCALE. WILL MONITOR.
[2019-04-26 08:00] VITALS: BP 111/60
--- NOTE | 2019-04-26 08:40 | NUR ---
MORPHINE EFFECTIVE PER PT.
--- NOTE | 2019-04-26 09:43 | NUR ---
PHYSICAL THERAPY PATIENT SEEN TODAY IN ROOM FOR 1:1 TREATMENT. PAIN SEEMS TO BE BETTER CONTROLLED TODAY AND WE DID SUPINE LYING LLE EXERCISES FOR 2 SETS OF 10 REPS PRIOR TO BED MOBILITY WITH USE OF TRAPEZE FOR SUP TO SIT WITH MOD/MAX OF 1 AND THEN DID SPT FROM BED TO RECLINER WITH EDUCATION ON PIVOTING ON THE LLE AND USE OF BUE'S FOR SUPPORT. KEPT PATIENT NWB RLE TODAY NURSING DID NOT GET CLARIFICATION YESTERDAY WHEN DR FERRARI WAS HERE FOR WB STATUS OF THE RLE. HE DID MUCH BETTER WITH SPT FROM BED TO RECLINER WITH MOD ASSIST OF 2 TODAY WITH MYSELF AND LEADER ASSEMBLER. CLIFTON ARMANDO PT
[2019-04-26 12:00] VITALS: BP 108/48
--- NOTE | 2019-04-26 13:49 | NUR ---
[id number] GIVEN FOR C/O RT LEG PAIN. RATES 6/10 ON PAIN SCALE. WILL MONITOR.
--- NOTE | 2019-04-26 15:00 | NUR ---
PT AWAKE SITTING IN RECLINER CHAIR W/RLE ELEVATED. CAST DRY AND INTACT. AT BEDSIDE. PT DENIES PAIN AT PRESENT TIME. CALL LIGHT IN REACH. HEPARIN GTT INFUSING ORDERED.
--- NOTE | 2019-04-26 15:46 | NUR ---
C/O NAUSEA, IV ZOFRAN GIVEN AT THIS TIME. WILL CONT TO MONITOR. CALL LIGHT IN REACH.
[2019-04-26 16:00] VITALS: BP 125/58
--- NOTE | 2019-04-26 17:17 | NUR ---
PRN ZOFRAN EFFECTIVE TO RELIEVE NAUSEA.
--- NOTE | 2019-04-26 17:40 | NUR ---
24 HR chart check completed.
--- NOTE | 2019-04-26 17:43 | NUR ---
DR. VELEZ PHONED RE LOW HGB. NO TRANSFUSION AT THIS TIME. WILL RECHECK IN AM.
[2019-04-26 20:00] VITALS: BP 110/50
--- NOTE | 2019-04-26 20:00 | NUR ---
PT REFUSING SCHEDULED LANTUS D/T BS OF 126 AT THIS TIME. PT ENCOURAGED TO EAT HS SNACK. PT AGREEABLE.
[2019-04-27] VITALS: BP 98/48
--- NOTE | 2019-04-27 00:37 | NUR ---
0000 EARLIER PAINMED EFFECTIVE. RESTING IN BED WITH EYES CLOSED. APPEARS TO BE SLEEPING. HEPARIN GTT MAINTAINED. CALL LIGHT IN REACH. SIDE RAILS UP X'S 2.
--- NOTE | 2019-04-27 00:38 | NUR ---
CAST REMAINS D/I TO RLE. TRAPEZE INTACT TO BED.
--- NOTE | 2019-04-27 04:37 | NUR ---
REMAINS SLEEPING WIHTOUT DISTRESS.
[2019-04-27 05:57] LABS: ACT PARTIAL THROMBO TIME 53.5 SECONDS (20.0-32.1); INTERNATIONAL NORM RATIO 1.1 (2.0-3.5)
[2019-04-27 06:04] LABS: CREATININE 7.32 mg/dL (0.70-1.30); POTASSIUM 4.5 mmol/L (3.5-5.1)
[2019-04-27 06:05] LABS: HEMATOCRIT 22.6 % (42.0-52.0); MEAN CELL VOLUME 105.6 fl (80.0-94.0); MEAN CORPUSCULAR HGB 31.8 pg (27.0-31.0); MEAN PLATELET VOLUME 9.5 fl (9.6-12.3); PLATELET COUNT AUTOMATED 149 10*3/uL (130-400); RED BLOOD COUNT 2.14 10*6/uL (4.50-5.90); RED CELL DISTRI WIDTH 17.5 % (0-14.5); WHITE BLOOD COUNT 5.2 10*3/uL (4.8-10.8)
--- NOTE | 2019-04-27 06:08 | NUR ---
SLEWTP WELL THIS SHIFT. REMAINS WITHOUT C/O'S. HEPARIN GTT CONT. CONDITION GUARDED.
[2019-04-27 06:14] LABS: MEAN CORPUSCULAR HGB CONC 30.1 g/dl (33.0-37.0)
[2019-04-27 06:15] LABS: HEMOGLOBIN 6.8 g/dl (14.0-18.0)
--- NOTE | 2019-04-27 06:19 | NUR ---
DR. CAM NOTIFIED OF PT H AND H.
[2019-04-27 06:30] LABS: BASOPHILS 1 % (0-1); PLATELET SUFFICIENCY NORMAL (NORMAL); POLYCHROMASIA SLIGHT; TOTAL CELLS COUNTED 100 #CELLS
--- NOTE | 2019-04-27 07:40 | NUR ---
Medicated with morphine prior to transport to dialysis.
--- NOTE | 2019-04-27 07:50 | NUR ---
PHYSICAL THERAPY Patient was out of his room for dialysis this am and not available for therapy at this time. Will continue this pm as able. Ronald Steinberg, SAUSAGE STUFFER
[2019-04-27 08:00] VITALS: BP 97/62
--- NOTE | 2019-04-27 09:00 | NUR ---
Occupational therapy orders received. Per HARRIS, patient was in dialysis this am. OTR will follow up with patient in afternoon to address goals and POC. Patient had surgery 04/24/19 for R LE ORIF procedure, not WBAT RLE. Thank you for the referral. Grace Otto, OTR/L
--- NOTE | 2019-04-27 10:16 | NUR ---
Currently in dialysis, RBC's to be infused post treatment per jyotii RN.
[2019-04-27 12:00] VITALS: BP 116/53
--- NOTE | 2019-04-27 12:18 | NUR ---
PHYSICAL THERAPY Progress note update following surgical procedure 04/24/19. Patient weight bearing restriction: WBAT RIGHT LE, per Dr. Betancourt. Updated goals as follows: Bed mobility: Michael supine<-->sitting EOB; Transfers: ModA sit<-->stand with FWW maintaining WBAT Right LE; Gait:25'x1 with ModA, FWW, WBAT RLE; Fair safety with transfers, gait, FWW use; Fair dynamic turning with gait/transfers; BLE Ther Ex 2x10. Recommend SNF at discharge. Thank you. eGrda Peres,PT,DPT.
--- NOTE | 2019-04-27 12:49 | NUR ---
Returned from dialysis, stable. Dressings removed fro RLE.
--- NOTE | 2019-04-27 14:15 | NUR ---
Occupational therapy orders received and chart reviewed. Patient had a R LE ORIF procedure on 04/24/19, previously NWB R LE. Following the procedure, patient is currently WBAT R LE per orders from Dr. Betancourt. Patient seen by OTR to discuss updating goals. Patient UE strength/ROM remains the same, no paraesthesias this date. Patient goals updated as followed- Feeding: Mod I Grooming: In stance Comb hair: Min A in stance Teeth/Denture Care: Min A in stance Bathing: Supervision upper body and Mod A lower body seated at sink Dressing: Min A upper body, Mod A lower body with AE Increase functional mobility/transfers: CGA chair transfer, Min A bed mobility Increase standing balance: Good Will tolerate 5 minutes of ADLs in stance with WBAT R LE with WW Improve safety: Good carryover with WBAT RLE Safety: 100% safety with less than 3 verbal cues with WW and R LE WBAT OTR at this time is continuining to recommend SNF Thank you for the referral. Grace Otto, OTR/L
--- NOTE | 2019-04-27 14:25 | NUR ---
PHYSICAL THERAPY Patient seen this pm 1:1 for therapy visit and was supine in bed upon therapist arrival. Patient identified by name / and presented with continuous O2-3L via NC / IV treatment. Patient reports only mild 2/10 R LE pain and is WBAT on R LE. Patient transfers supine to sit EOB with use of overhead trapeze bar, MOD A including therapist assist with holding R LE secndary to increased c/o of pain during movement to 4/10. Patient tolerated a minute or so static EOB sit to collect himself then performed sit to stand transfer MOD A x 2 with use of wh walker standing support. Patient completed SPT to bedside chair MOD A, demonstrating increased difficulty with walker advance and safe step sequence. Patient needed v/c to improve transfer / pivot technique while transfering sit to stand from low chair surface, MOD A x 2. Patient returned to EOB sit demonstrating slight improvement in technique / performance, MIN / MOD A. Patient transfered sit to supine MIN A, use of trapeze bar, therapist assist with holding R LE and remained in bed with call light, tray table, cell phone and bed alarm. Patient would benefit from SNF to improve safe, functional transfers, mobility and standing balance. Will continue per POC as tolerated, total treatment time 16 minutes. Ronald Steinberg, FLAT CUTTER
--- NOTE | 2019-04-27 14:49 | NUR ---
OT NOTE Pt was seen this P.M. 1:1 for 20 minute OT session. Upon arrival pt was supine in bed. Pt identified by name and and had complaints of 2/10 RLE pain at rest. Pt presented to therapy with continuous 3L-O2 via NC which he remained on throughout entire session. Pt transferred supine to sit EOB with modA X 2 and use of overhead trapeze bar. Requested for pt to danielle R sock and pt required maxA to complete. Educated pt on his new WBAT to his RLE and pt verbalized understanding. Sit to stand completed from bed level with modA X 2 and use of w/w for UE support. Challenged pt's static standing tolerance needed for increased I in self care tasks and functional transfers and pt was able to tolerate aprox 60 sec, 75 sec, and 60 seconds before sitting due to fatigue. Pt had reports of 4/10 RLE pain with activity. Stand pivot then completed from EOB <> recliner with modA X 2 to rise off the EOB and out of the recliner and Martina for stand pivot with use of w/w for UE support. Pt then transferred back into bed sit to supine with modA X 2. There he was left with call light in hand, tray table in place, and bed alarm activated for safety. Continue with rec D/C plan to SNF. STEVEN Hurst/Raheem
--- NOTE | 2019-04-27 15:11 | NUR ---
Faxed clinical updates and therapy notes to Maame at [facility]/ asked to start precert so patient can discharge tomorrow. Maame starting precert this afternoon.
[2019-04-27 16:00] VITALS: BP 108/51
[2019-04-27 16:16] LABS: CREATININE 3.53 mg/dL (0.70-1.30)
[2019-04-27 20:00] VITALS: BP 113/40
--- NOTE | 2019-04-27 20:30 | NUR ---
RESTING IN BED WITH NO ACUTE DISTRESS NOTED. RESPIRATIONS EASY. LUNGS DIMINISHED. PULSE OX 95% 2L. FISTULA RUE, +THRILL/BRUIT. BLE EDEMA NOTED WITH HEEL PROTECTORS IN PLACE. DRESSING MAINTAINED RLE. HEPARIN INFUSING PER ORDER. CALL LIGHT WITHIN REACH. NO VOICED COMPLAINTS
--- NOTE | 2019-04-27 21:35 | NUR ---
MEDICATED WITH ZOFRAN IV PER PRN ORDER FOR SMALL BROWN EMESIS. ALSO REQUESTED AND RECEIVED MORPHINE IV FOR COMPLAINTS OF RLE PAIN RATING AN 8. CALL LIGHT WITHIN REACH. WILL MONITOR
--- NOTE | 2019-04-27 22:00 | NUR ---
BSG 113. LANTUS HELD AT PATIENT REQUEST. WILL MONITOR
--- NOTE | 2019-04-27 23:00 | NUR ---
EARLIER MES APPEAR EFFECTIVE. SLEEPING. RESPIRATIONS EASY. VSS. CALL LIGHT WITHIN REACH
[2019-04-28] VITALS (7 sets, daily range): BP systolic 102–123; BP diastolic 38–68
--- NOTE | 2019-04-28 00:30 | NUR ---
SLEEPING. RESPIRATIONS EASY. VSS. HEPARIN MAINTAINED PER ORDER. CALL LIGHT WITHIN REACH
--- NOTE | 2019-04-28 01:12 | NUR ---
24 HR chart check completed.
--- NOTE | 2019-04-28 06:41 | NUR ---
MINNIEBRENDAN [id number] Please refer to the physician's history and physical for past medical history, comorbid conditions, and allergies. Diagnosis: FRACTURE OF DISTAL END OF RT TIBIA FALL Taiwo Score: 14,MODERATE RISK WOUND DESCRIPTIONS: Patient had dressing intact to right lower extremity. Dressing should not be removed had surgery on Saturday with Dr. Betancourt. Patient has abrasion noted to left knee at time of assessment. No drainage noted at time of assessment. Unable to visualize right knee due to surgical dressing intact. Wound Number: 4 Location of the wound: left hand Type of wound: scab Thickness: Partial Size: 0.4cm x 0.6cm x <0.1cm Tunneling: none Undermining: none Sinus Tract: none Presence of Exudate: none Amount: None Color: Red Odor: None Periwound Skin Appearance: Normal Wound edges: approximated Pain (associated with wound): none at time of assessment How does patient state this happened? pt stated he took a bandaid off and his skin came off with it Surface the patient is resting on: Isoflex SKIN PREVENTION RECOMMENDATION: 1. Pressure redistribution support surface as appropriate 2. Elevate heels 3. Remove boots/TEDS every shift and reapply 4. Head of bed 30 degrees as tolerated 5. Assess nutrition and hydration 6. Manage moisture 7. Avoid the use of containment devices while in bed 8. Use absorptive products on surfaces limit layers of linens on bed 9. Turn and reposition every 1-2 hours in bed and every 1 hour in chair as tolerated 10. Weight shifts every 15 minutes while up in chair 11. Offloading with pillows or device to keep heels elevated off bed 12. Monitor skin at least every shift 13. Inspect under medical devices twice a day WOUND TREATMENT RECOMMENDATIONS: Continue current wound care recommendations.
--- NOTE | 2019-04-28 06:41 | NUR ---
MEDICATED WITH MORPHINE IV PER PRN ORDER FOR COMPLAINTS OF RLE PAIN RATING AN 8. CALL [facility] WITHIN REACH. WILL MONITOR FOR EFFECTIVENESS
[2019-04-28 07:15] LABS: HEMATOCRIT 24.2 % (42.0-52.0); HEMOGLOBIN 7.4 g/dl (14.0-18.0); MEAN CELL VOLUME 103.4 fl (80.0-94.0); MEAN CORPUSCULAR HGB 31.6 pg (27.0-31.0); MEAN CORPUSCULAR HGB CONC 30.6 g/dl (33.0-37.0); MEAN PLATELET VOLUME 9.8 fl (9.6-12.3); NUCLEATED RED BLOOD CELL 0.3 % (0.0-0.0); PLATELET COUNT AUTOMATED 168 10*3/uL (130-400); RED BLOOD COUNT 2.34 10*6/uL (4.50-5.90); RED CELL DISTRI WIDTH 18.6 % (0-14.5); WHITE BLOOD COUNT 6.7 10*3/uL (4.8-10.8)
[2019-04-28 07:23] LABS: ACT PARTIAL THROMBO TIME 45.7 SECONDS (20.0-32.1); INTERNATIONAL NORM RATIO 1.1 (2.0-3.5)
[2019-04-28 07:46] LABS: BASOPHILS 1 % (0-1); PLATELET SUFFICIENCY NORMAL (NORMAL); POLYCHROMASIA SLIGHT; ROULEAUX SLIGHT; TOTAL CELLS COUNTED 100 #CELLS
[2019-04-28 07:47] LABS: TARGET CELLS FEW
[2019-04-28 07:50] LABS: CREATININE 4.57 mg/dL (0.70-1.30); POTASSIUM 4.4 mmol/L (3.5-5.1)
--- NOTE | 2019-04-28 08:42 | NUR ---
Awake and alert. States ordered breakfast , Encouraged to work with PT today.
--- NOTE | 2019-04-28 08:48 | NUR ---
precert for [facility] started 04/27/19, waiting for auth.
--- NOTE | 2019-04-28 09:25 | NUR ---
PHYSICAL THERAPY Patient presented to therapy in supine with head of bed elevated and bed alarm activated. Patient was identified by name and on wristband. Patient gives informed consent for treatment. Patient performed supine to sitting at EOB transfer with MIN A X 2 for assisting with moving R LE out over EOB. Patient sat on EOB unassisted. Patient sit to stand transfer to Walker with MIN A X 2 from EOB. Patient 3 to 4 steps to Bedside chair with CGA X 2. Patient transferred to bedside chair with MIN A X 2 for assisting with kicking R LE out in front of him. Patient sit to stand from BEDSIDE CHAIR 1st attempt MAX A X 2 and then patient had to immediately sit back into chair. Patient sit to stand from bedside chair with MOD A X 2. Patient stood at Walker with CGA X 2 for 40 seconds and then had to sit due to fatigue. Patient was left sitting in bedside chair with call light within reach, chair alarm tested and attached, and tray table in front of patient with breakfast. Patient was 1:1 with this EDIPHONE OPERATOR for 19 minutes total. PACO RAMÍREZ EDIPHONE OPERATOR
--- NOTE | 2019-04-28 09:26 | NUR ---
OT NOTE Pt was seen this A.M. 1:1 for 25 minute OT session. Upon arrival pt was supine in bed. Pt identified by name and and had complaints of "2/10 RLE pain." Pt presented to therapy with continuous 2L-O2 via NC which he remained on throughout entire session. Pt transferred supine to sit EOB with Martina for assist with RLE. While sitting EOB pt donned B socks with maxA. Pt completed multiple sit to stand transfers from bed level with Martina X 2 and use of w/w for UE support. Challenged pt's static standing tolerance needed for increased I in self care tasks and functional transfers, pt was able to tolerate aprox 30-40 seconds at a time before sitting due to fatigue. Pt then completed standing pivot transfer from EOB to the recliner with Martina and use of w/w. Throughout pt required verbal prompts for correcting his posture, holding his head up, and required standing rest breaks throughout. Pt then completed multiple sit to stand transfers from chair level with modA X 2 and use of w/w. Pt was left sitting upright in the recliner with call light in hand, tray table in place, and body alarm on for safety. Throughout activity pt reported his pain as a "2/10 in the RLE." Continue with rec D/C plan to SNF. STEVEN Hurst/Raheem
--- NOTE | 2019-04-28 10:19 | NUR ---
Patient received auth for [facility], however patient is now on a heparin drip and is still not medically stable for discharge. [facility] notified. Will restart precert when patient becomes medically stable.
--- NOTE | 2019-04-28 11:22 | NUR ---
case managment visits with patient, patient will go to [facility] for skilled care when medically stable, insurance authorization has been obtained, funeral planner will make transportation arrangements if patient is stable for discharge, case management will follow
--- NOTE | 2019-04-28 11:25 | NUR ---
Another Multi-Disciplinary Team meeting was held on 04/28/19, for the purpose of discharge planning. patient does not have a therapeutic inr, will not be discharged to [facility] today [place] [place]
--- NOTE | 2019-04-28 13:54 | NUR ---
PHYSICAL THERAPY Patient presented to therapy in sititng position in bedside chair on 2 liters of spO2 via nasal canula. Patient was identified by name and on wristband. Patient gives informed consent for treatment. Patient has chair alarm attached. Patient transferred sit to stand with MIN A X 1. Patient stand -pivot transfer to EOB with CGA X 1. Patient transferred sit to supine with SBA to CGA X 1. Patient was left in supine in bed with head of bed elevated, call light within reach, and bed alarm activated. Patient was 1:1 with this BURLAP ROLL COVERER for 12 minutes total. PACO RAMÍREZ BURLAP ROLL COVERER
--- NOTE | 2019-04-28 14:26 | NUR ---
OT NOTE Pt was seen this P.M. 1:1 for second OT session consisting of 15 minutes. Upon arrival pt was sitting upright in the recliner. Pt identified by name and and had complaints of "2/10 RLE pain." Pt presented to therapy with continuous 3L-O2 via NC which he remained on throughout entire session. Pt completed sit to stand transfer from chair level with Martina X 2 and education for proper hand placement. Pt then completed functional mobility to the EOB with CGa and use of w/w. THere he transferred sit to supine with Martina X 2 and use of overhead trapeze bar for repositioning in bed. Pt was left supine in bed with call light in hand, tray table in place, and bed alarm activated for safety. Continue with rec D/C plan to SNF. JENNIFER Hurst
--- NOTE | 2019-04-28 14:26 | NUR ---
PHYSICAL THERAPY Patient presented to therapy in sitting in bed side chair with chair alarm attached and 2 liters of spO2 VIA NASAL CANULA. Patient was identified by name and on wristband. Patient gives informed consent for treatment. Patient transferred sit to stand from bedside chair with MIN A X 2. Patient 4 steps to EOB with Wheeled Walker and CGA X 2 and sit on EOB with verbal cues for putting hands back on bed. Patient transferred sitting to supine with MIN A X 2. Patient scooted himself up to head of bed. Patient was left in supine in bed with head of bed elevated, call light within reach, and bed alarm activated. Patient was 1:1 with this SECOND CUTTER for 15 minutes total. PACO RAMÍREZ SECOND CUTTER
--- NOTE | 2019-04-28 16:14 | NUR ---
Medicated for c/o pain scale 8/10. Attempt to move bowels not successful. Laxative offered and declined.
--- NOTE | 2019-04-28 19:59 | NUR ---
MEDICATED WITH ZOFRAN IV PER PRN ORDER TO ASSIST WITH NAUSEA. WILL MONITOR
--- NOTE | 2019-04-28 20:28 | NUR ---
24 HR chart check completed.
--- NOTE | 2019-04-28 21:00 | NUR ---
RESTING IN BED WATCHING TV WITH NO ACUTE DISTRESS NOTED. RESPIRATIONS EASY. LUNGS DIMINISHED. PULSE OX 94% 2L. DRESSING MAINTAINED TO RLE. BILATERAL HEEL PROTECTORS PLACED. HEPARIN INFUSING PER ORDER. CALL LIGHT WITHIN REACH. NO FURTHER VOICED COMPLAINTS
--- NOTE | 2019-04-28 22:00 | NUR ---
BSG 133. DECLINED LANTUS INSULIN. WILL RECHECK IN AM
--- NOTE | 2019-04-28 23:00 | NUR ---
RESTING WITH EYES CLOSED. RESPIRATIONS EASY.
[2019-04-29] VITALS: BP 127/62
--- NOTE | 2019-04-29 00:30 | NUR ---
SLEEPING. NO DISTRESS NOTED. RESPIRATIONS EASY. VSS. HEPARIN MAINTAINED. CALL LIGHT WITHIN REACH
--- NOTE | 2019-04-29 05:03 | NUR ---
REQUESTED AND RECEIVED MORPHINE IV PER PRN ORDER FOR COMPLAINTS OF RLE PAIN RATING AN 8. CALL LIGHT WITHIN REACH. WILL MONITOR FOR EFFECTIVENESS
--- NOTE | 2019-04-29 06:00 | NUR ---
MORPHINE APPEARS EFFECTIVE. SLEEPING. RESPIRATIONS EASY. HEPARIN MAINTAINED. CALL LIGHT WITHIN REACH.
[2019-04-29 06:12] LABS: HEMATOCRIT 26.9 % (42.0-52.0); HEMOGLOBIN 8.2 g/dl (14.0-18.0); MEAN CELL VOLUME 103.1 fl (80.0-94.0); MEAN CORPUSCULAR HGB 31.4 pg (27.0-31.0); MEAN CORPUSCULAR HGB CONC 30.5 g/dl (33.0-37.0); MEAN PLATELET VOLUME 9.4 fl (9.6-12.3); PLATELET COUNT AUTOMATED 166 10*3/uL (130-400); RED BLOOD COUNT 2.61 10*6/uL (4.50-5.90); WHITE BLOOD COUNT 6.9 10*3/uL (4.8-10.8)
[2019-04-29 06:19] LABS: CREATININE 5.78 mg/dL (0.70-1.30); POTASSIUM 4.3 mmol/L (3.5-5.1)
[2019-04-29 07:06] LABS: ACT PARTIAL THROMBO TIME 48.4 SECONDS (20.0-32.1); INTERNATIONAL NORM RATIO 1.3 (2.0-3.5)
--- NOTE | 2019-04-29 07:10 | NUR ---
BRENDAN HARTMAN [id number] Please refer to the physician's history and physical for past medical history, comorbid conditions, and allergies. Diagnosis: FRACTURE OF DISTAL END OF RT TIBIA FALL Taiwo Score: 14,MODERATE RISK WOUND DESCRIPTIONS: ( new skin impairment ) Wound Number: 5 Location of the wound: left lower extremity Thickness: Full Size: 1.2cm x 1.7cm x 0.1cm Tunneling: none Undermining: none Sinus Tract: none Presence of Exudate: Serosanguineous Amount: Light Color: Brown, yellow, red Odor: None Periwound Skin Appearance: Erythema Wound edges: approximated Pain (associated with wound): none at time of assessment How does patient state this happened? pt is unsure of how this happened but noticed this area yesterday. Surface the patient is resting on: Isoflex SKIN PREVENTION RECOMMENDATION: 1. Pressure redistribution support surface as appropriate 2. Elevate heels 3. Remove boots/TEDS every shift and reapply 4. Head of bed 30 degrees as tolerated 5. Assess nutrition and hydration 6. Manage moisture 7. Avoid the use of containment devices while in bed 8. Use absorptive products on surfaces limit layers of linens on bed 9. Turn and reposition every 1-2 hours in bed and every 1 hour in chair as tolerated 10. Weight shifts every 15 minutes while up in chair 11. Offloading with pillows or device to keep heels elevated off bed 12. Monitor skin at least every shift 13. Inspect under medical devices twice a day WOUND TREATMENT RECOMMENDATIONS: Full thickness guidelines: Cleanse left lower extremity with nss and apply sureprep around the wound therahoney to wound bed and cover with optifoam gentle.
[2019-04-29 07:31] LABS: BASOPHILS 1 % (0-1); TOTAL CELLS COUNTED 100 #CELLS
[2019-04-29 07:32] LABS: PLATELET SUFFICIENCY NORMAL (NORMAL); POLYCHROMASIA SLIGHT
--- NOTE | 2019-04-29 07:40 | NUR ---
PHYSICAL THERAPY Patient was out of his room for dialysis this morning and unavailable for therapy at this time. Will continue this pm per POC as able. Ronald Steinberg, BOOKBINDER CHIEF
--- NOTE | 2019-04-29 07:46 | NUR ---
PATIENT RESTING QUIETLY IN BED. NO DISTRESS NOTED. POX 96% VIA 2LNC. DENIES ANY SOB. LUNGS DIMINISHED WITH FAINT WHEEZE. A-FIB PER CM. PT DENIES ANY PAIN/DISCOMFORT AT THIS TIME. DRESSING MAINTAINED TO RLE. DRESSING D/I TO LLE. BILATERAL HEEL PROTECTORS. WILL CONTINUE TO MONITOR. VSS.
--- NOTE | 2019-04-29 07:47 | NUR ---
PATIENT TAKEN TO SCHEDULED DIALYSIS AT THIS TIME.
[2019-04-29 08:00] VITALS: BP 116/62
--- NOTE | 2019-04-29 08:15 | NUR ---
OT NOTE Attempted to see pt this A.M. for OT session and upon arrival pt was out of the room for dialysis. Will check back at a later time/date and continue with POC as indicated. STEVEN Hurst/Raheem
--- NOTE | 2019-04-29 08:22 | NUR ---
Dr. Welsh notified of wound care recommendations.
--- NOTE | 2019-04-29 11:09 | NUR ---
PATIENT STILL IN DIALYSIS.
--- NOTE | 2019-04-29 11:51 | NUR ---
OT NOTE Attempted to see pt this P.M. for OT session and upon arrival pt was still out of the room for dialysis. Will check back at a later time/date and continue with POC as able. STEVEN Hurst/Raheem
--- NOTE | 2019-04-29 11:59 | NUR ---
Patient still has authorization to go to [facility] valid through evening (04/30/19) if medically stable to go. If patient is unable to go on , [facility] will resubmit Saturday and try to obtain auth for Saturday.
--- NOTE | 2019-04-29 13:01 | NUR ---
PATIENT RETURNED TO ROOM FROM DIALYSIS.
[2019-04-29 13:08] VITALS: BP 113/52
--- NOTE | 2019-04-29 13:15 | NUR ---
IN TO SEE PATIENT AND TO CHANGE DRESSING TO RLE.
--- NOTE | 2019-04-29 13:50 | NUR ---
OT NOTE Pt was seen this P.M. 1:1 for 18 minute OT session. Upon arrival pt was supine in bed. Pt identified by name and and had complaints of "7/10 RLE pain and increased fatigue due to dialysis." Pt presented to therapy with continuous 3L-O2 via NC which he remained on throughout entire session. Pt transferred supine to sit EOB with Martina for assist with RLE and use of overhead trapeze bar. Pt completed multiple sit to stand transfers from bed level with Martina and use of w/w for UE support. Challenged pt's static standing tolerance needed for increased i in self care tasks and functional transfers. Pt was able to tolerate aprox 35-53 seconds at a time before sitting due to increased fatigue and pain. Pt then transferred back into bed sit to supine with Martina and was repositioned in bed with modA X 2. There he was left with call light in hand, tray table in place, and bed alarm activated for safety. Continue with rec D/C plan to SNF. STEVEN Hurst/Raheem
--- NOTE | 2019-04-29 13:54 | NUR ---
PHYSICAL THERAPY Patient seen this pm 1:1 for therapy visit and was supine in bed upon therapist arrival. Patient identified by name / and reports 7/10 R LE pain. Patient also presents with increased fatiuge, stating he feels sluggish since returning from am Dialysis treatment. Patient continuous O2-3L via NC and IV treatment, transfering supine to sit EOB with MOD A x 1. Patient demonstrated increased difficulty scooting side to side on EOB and completed several sit to stand transfers at bedside, Min A, use of wh walker standing support. Patient could only tolerate < 1 minute static stand each trial secondary to quick onset of fatigue. Patient returned to supine in bed with B heel protectors and remained with call light, tray table, cell phone and bed alarm for safety. Will continue per POC as tolerated, total treatment time 13 minutes. Ronald Steinberg, SOLID DIE CUTTER
--- NOTE | 2019-04-29 15:21 | NUR ---
OT CO-SIGN I APPROVE OF THE NOTES WRITTEN ABOVE. THANK YOU. ZAK DYKES, OTR/L
[2019-04-29 16:00] VITALS: BP 118/46; BP 149/81
[2019-04-29 20:00] VITALS: BP 109/47
--- NOTE | 2019-04-29 20:40 | NUR ---
IN TO ASSESS PATIENT, PATIENT RESTING IN BED. 2L NC INTACT. ALERT AND ORIENTED. PATIENT STATES HE'S SLEEPY. DENIES ANY PAIN AT THIS TIME. OBESE ABDOMEN, NORMOACTIVE BOWELS X4 QUADS, DENIES N/V/D. HEEL PROTECTORS ON. RIGHT LEG WRAPPED TO MID THIGH. LEFT LOWER LEG REDDNED DRY AND SCALEY. HEPARIN DRIP INFUSING PER PROTOCOL. CALL LIGHT WITHIN REACH, WILL MONITOR
[2019-04-30] VITALS: BP 105/60
--- NOTE | 2019-04-30 01:32 | NUR ---
PRN MORPHINE GIVEN FOR PT COMPLAINTS OF LEG PAIN RATING IT 7/10. CALL LIGHT WITHIN REACH, WILL MONITOR
--- NOTE | 2019-04-30 02:30 | NUR ---
EARLIER MORPHINE APPEARS EFFECTIVE, PT SLEEPING. CALL LIGHT JESSIE STEWART , WILL SAMRA
[2019-04-30 05:56] LABS: HEMATOCRIT 27.2 % (42.0-52.0); HEMOGLOBIN 8.5 g/dl (14.0-18.0); MEAN CELL VOLUME 104.2 fl (80.0-94.0); MEAN CORPUSCULAR HGB 32.6 pg (27.0-31.0); MEAN CORPUSCULAR HGB CONC 31.3 g/dl (33.0-37.0); PLATELET COUNT AUTOMATED 149 10*3/uL (130-400); RED BLOOD COUNT 2.61 10*6/uL (4.50-5.90); WHITE BLOOD COUNT 6.1 10*3/uL (4.8-10.8)
--- NOTE | 2019-04-30 06:09 | NUR ---
24 HR chart check completed.
[2019-04-30 06:16] LABS: CREATININE 4.24 mg/dL (0.70-1.30); POTASSIUM 3.9 mmol/L (3.5-5.1)
[2019-04-30 06:33] LABS: BASOPHILS 1 % (0-1); PLATELET SUFFICIENCY NORMAL (NORMAL); POLYCHROMASIA SLIGHT; SCHISTOCYTES FEW; TOTAL CELLS COUNTED 100 #CELLS
--- NOTE | 2019-04-30 07:03 | NUR ---
Patient has auth for [facility] through today, 04/30/19. Patient ok to go today if medically stable for discharge.
[2019-04-30 08:00] VITALS: BP 114/60
[2019-04-30 08:14] LABS: INTERNATIONAL NORM RATIO 1.7 (2.0-3.5)
--- NOTE | 2019-04-30 08:39 | NUR ---
PHYSICAL THERAPY Patient is on bed rinaldi at this time. Will check back later. PACO RAMÍREZ CARTON AND CAN SUPPLY SUPERVISOR
--- NOTE | 2019-04-30 09:41 | NUR ---
OT NOTE Pt was seen this A.M. 1:1 for 25 minute OT session. Upon arrival pt was supine in bed. Pt identified by name and and had complaints of "4/10 RLE pain." Pt presented to therapy with continuous 4L-O2 via NC which he remained on throughout entire session. Pt transferred supine to sit EOB with SBA and use of overhead trapeze bar. Sit to stand completed from bed level with Martina and use of w/w for UE support. Stand pivot completed from EOB to the recliner with CGA and use of w/w. Sit to stand then completed from the chair level with modA X 2 and use of w/w followed by functional mobility to the bathroom with CGA and use of w/w. Pt was unable to make it back due to quick onset of fatigue resulting in being sat into the recliner. Sit to stand completed from chair level with modA X 2 followed by stand pivot to the bedside commode with CGA and use of w/w. Pt was able to transfer on/off bedside commode with CGA with verbal prompts for proper hand placement. Pt was left sitting upright in the recliner with call light in hand, tray table in place, and body alarm activated for safety. Extra time given throughout session due to pt requring frequent rest breaks and slow rate of performance. Continue with rec D/C plan to SNF. STEVEN Hurst/Raheem
--- NOTE | 2019-04-30 09:59 | NUR ---
PHYSICAL THERAPY Patient presented to therapy in supine with head of bed elevated and bed alarm activated with 4 liters of spO2 VIA NASAL CANULA. Patient was identified by name and on his wristband, Patient gives informed consent for treatment. Patient transferred supine to sitting at EOB with SBA. Patient sat on EOB for 2 minutes unassisted. Patient sit to stand from EOB with MIN A X 1. Patient ambulated 3 FT. OT BEDSIDE CHAIR WHERE HE SAT WITH CGA X 1 with verbal cues for putting hands back on armrests of chair. Patient was wheeled out into hallway where he performed sit to stand transfer from chair with MOD A X 1. Patient ambulated 12' x 1 with rolling chair follow and CGA X 1 with verbal cues for upright posture, locking knees into extension and pushing down on walker with hands. Patient demonstrated good tolerance to gait with no LOB or SOB and good gait mechanics. Patient transferred from chair to standing again with MOD A X 1. Patient transferred to bedside commode with CGA. Patient sit to stand from bedside commode with CGA X 1. Patient transferred back SPT into bedside chair with SBA. Patient was left in bedside chair with call light within reach, chair alarm tested and attached to patient and O2 attached to wall outlet with 4 LITERS of spO2. Patient was 1:1 with this FINAL OPERATIONS TECHNICIAN for 25 minutes total. PACO RAMÍREZ FINAL OPERATIONS TECHNICIAN
[2019-04-30 12:00] VITALS: BP 94/50
--- NOTE | 2019-04-30 14:01 | NUR ---
OT NOTE Pt was seen this P.M. 1:1 for second OT session consisting of 13 minutes. Upon arrival pt was sitting upright in the recliner. Pt identified by name and and had complaints of "3-4/10 RLE pain." Pt presented to therapy with continuous 2L-o2 via NC which he remained on throughout entire session. Pt completed sit to stand from chair level with modA X 2 and use of w/w for UE support. Functional mobility completed to the bathroom with CGA and use of w/w for UE support. Pt was unable to complete mobility back to the recliner due to quick onset of fatigue resulting in a seated rest break. Pt was left sitting upright in the recliner with call light in hand, tray table in place, and body alarm actovated for safety. Continue with rec D/C plan to SNF. JENNIFER Hurst
--- NOTE | 2019-04-30 14:02 | NUR ---
PHYSICAL THERAPY Patient presented to therapy in seated position in bedside chair on 2 liters of spO2 via nasal canula. Patient was identifed by name and on wristband. Patient gives informed consent for treatment. Patient performed sit to stand transfer out of bedside chair with MOD A X 2. Patient performed ambulation with Wh Walker and CGA X 1 for 20' x 1 wit hno LOB or SOB. PATIENT HAD TO SIT AT 20' DUE TO FATIGUE. Patient sat in chair with MIN A X 1 with verbal cues for putting hands back on armrests of chair. Patient was left in seated position in bedside chair with call light within reach, chair alarm tested and attached ,and tray table near patient. Patient was 1:1 with this [facility] for 20 minutes total. PACO RAMÍREZ [facility]
[2019-04-30 16:00] VITALS: BP 114/56
--- NOTE | 2019-04-30 16:05 | NUR ---
PT MEDICATED WITH IV MORPHINE PER PRN ORDER FOR C/O RIGHT LEG PAIN. RATES PAIN 9/10. AT BEDSIDE. WILL MONITOR EFFECTIVENESS.
--- NOTE | 2019-04-30 17:14 | NUR ---
MORPHINE RELIEVING PAIN PER PT.
[2019-04-30 20:00] VITALS: BP 122/52
[2019-05-01] VITALS: BP 124/62
--- NOTE | 2019-05-01 00:57 | NUR ---
24 HR chart check completed.
--- NOTE | 2019-05-01 06:10 | NUR ---
HEPARIN STOPPED AT THIS TIME PER PROTOCOL FOR CRITICAL HIGH PTT. REDUCED BY 3 UNITS PER KILOGRAM AND IS TO BE STOPPED FOR AN HOUR. VERIFIED BY AZAEL STORY RN
[2019-05-01 06:51] LABS: INTERNATIONAL NORM RATIO 2.4 (2.0-3.5)
--- NOTE | 2019-05-01 07:33 | NUR ---
Unable to obtain auth for weekend discharge. Insurance will not authorize snf for patient while he is on Heparin drip. Will wait until patient is medically stable and then start precert.
[2019-05-01 08:00] VITALS: BP 120/62
--- NOTE | 2019-05-01 08:05 | NUR ---
PATIENT TO THE 5TH FLOOR FOR HIS DIALYSIS
--- NOTE | 2019-05-01 08:19 | NUR ---
OT NOTE Attempted to see pt this A.m. for OT session and upon arrival pt was out of the room for dialysis. Will check back at a later time/date and continue with POC as able. STEVEN Hurst/Raheem
--- NOTE | 2019-05-01 09:36 | NUR ---
PHYSICAL THERAPY Patient was out of his room in dialysis this am when approached for therapy. Will continue as able this pm per POC. Ronald Steinberg, CUSTOMER EXPERIENCE SPECIALIST
--- NOTE | 2019-05-01 12:22 | NUR ---
Auth from insurance for snf placement cannot be authorized until patient's heparin drip is discontinued on the med list. Hospitalists office notified.
--- NOTE | 2019-05-01 13:18 | NUR ---
OT CO-SIGN I APPROVE OF THE NOTES WRITTEN ABOVE. THANK YOU. ZAK DYKES, OTR/L
--- NOTE | 2019-05-01 13:20 | NUR ---
PHYSICAL THERAPY Patient seen this pm 1:1 for therapy visit and was resting supine in bed upon therapist arrival. Patient identified by name / and reports feeling very exhausted following am dialysis. Patient baseline SpO2 97% on 3.5L O2 via NC and transfers supine to sit EOB with use of overhead trapeze bar, CGA. Patient tolerated EOB sit x 11 minutes prior to increased fatigue. Patient returned to supine in bed and remained with call light, tray table and cell phone. Will continue per POC as tolerated, total treatment time 15 minutes. Ronald Steinberg, CALCINE FURNACE LOADER
--- NOTE | 2019-05-01 13:42 | NUR ---
OT NOTE Pt was seen this P.M. 1:1 for 14 minute OT session. Upon arrival pt was supine in bed. Pt identified by name and and had complaints of increased fatigue due to dialysis. Pt presented to therapy with continuous 3.5L-O2 via NC which he remained on throughout the entire session. At rest pt's SpO2 was 97%. Pt transferred supine to sit EOB with Martina and use of overhead trapeze bar. Challenged pt's dynamic sitting balance needed for increased I in self care tasks. While weight shifting, crossing midline, and reaching over all planes pt was able to maintain G- sitting balance. Attempted to completed sit to stand transfers and pt was unable due to level of fatigue. Pt was able to tolerate parox 11 minutes of sitting EOB and was left sitting EOB with call light in hand, trya table in place, and phone in reach. Continue with rec D/C plan to SNF. STEVEN Hurst/Raheem
--- NOTE | 2019-05-01 14:20 | NUR ---
PHYSICAL THERAPY CO-SIGN I approve of the Physical Therapy notes written above. PEDRO MARIA PT,DPT
--- NOTE | 2019-05-01 14:28 | NUR ---
PHYSICAL THERAPY CO-SIGN I approve of the Physical Therapy notes written above. PEDRO MARIA PT,DPT
--- NOTE | 2019-05-01 14:36 | NUR ---
OT CO-SIGN I APPROVE OF THE NOTES WRITTEN ABOVE. THANK YOU. ZAK DYKES, OTR/L
[2019-05-01 16:00] VITALS: BP 107/52
--- NOTE | 2019-05-01 16:01 | NUR ---
PER RADHA FROM [facility] INSURANCE WILL NOT GIVE AN AUTH FOR OVER THE WEEKEND. THEY TOLD HER TO CALL ON DAY OF DISCHARGE FOR AUTH. DR DUNAWAY NOTIFIED THAT PT WILL NOT BE ABLE TO GO OVER THE WEEKEND.
[2019-05-01 20:00] VITALS: BP 114/64
--- NOTE | 2019-05-01 20:15 | NUR ---
PATIENT CLAMMY, SWEATY AND VERY DROWSY. STATES HE THINKS HIS SUGAR IS LOW. PATIENT BLOOD SUGAR IS 31. GIVEN ORANGE JUICE WITH EXTRA SUGAR ADDED. GRAHM CRACKERS AND PEANUT BUTTER ALSO GIVEN. NO DEXTROSE ON OCT. NOTIFIED DR. VELEZ. DEXTOSE ORDERED.
--- NOTE | 2019-05-01 20:28 | NUR ---
500CC OF 10% DEXTROSE BOLUS STARTED AT THIS TIME. PATIENT STILL VERY SYMPTOMATIC, LAYING IN BED EATING ICE CREAM. WILL CONTINUE TO MONITOR.
--- NOTE | 2019-05-01 20:54 | NUR ---
PATIENT BLOOD SUGAR IS NOW 155. PATIENT RESTING IN BED, AWAKE ALERT. STATES HE IS FEELING BETTER. WILL CONTINUE TO MONITOR.
[2019-05-02] VITALS: BP 117/71
--- NOTE | 2019-05-02 02:06 | NUR ---
Patient relaxing. Respirations relaxed and easy. Siderails up. Bed in lowest position. No compliants at this time. TONI LEDESMA
[2019-05-02 05:38] LABS: CREATININE 3.83 mg/dL (0.70-1.30); POTASSIUM 3.7 mmol/L (3.5-5.1)
[2019-05-02 06:17] LABS: HEMATOCRIT 28.8 % (42.0-52.0); HEMOGLOBIN 8.8 g/dl (14.0-18.0); MEAN CELL VOLUME 102.9 fl (80.0-94.0); MEAN CORPUSCULAR HGB 31.4 pg (27.0-31.0); MEAN CORPUSCULAR HGB CONC 30.6 g/dl (33.0-37.0); MEAN PLATELET VOLUME 9.6 fl (9.6-12.3); PLATELET COUNT AUTOMATED 161 10*3/uL (130-400); RED CELL DISTRI WIDTH 18.7 % (0-14.5); WHITE BLOOD COUNT 6.2 10*3/uL (4.8-10.8)
[2019-05-02 06:58] LABS: INTERNATIONAL NORM RATIO 2.8 (2.0-3.5)
[2019-05-02 07:36] LABS: PLATELET SUFFICIENCY NORMAL (NORMAL); POLYCHROMASIA SLIGHT; TOTAL CELLS COUNTED 100 #CELLS
[2019-05-02 07:37] LABS: SCHISTOCYTES FEW
[2019-05-02 08:00] VITALS: BP 108/54
[2019-05-02 12:00] VITALS: BP 110/50
[2019-05-02 16:00] VITALS: BP 110/46
--- NOTE | 2019-05-02 19:29 | NUR ---
PATIENT RESTING IN BED WATCHING TV. DENIES PAIN BUT C/O NASUEA. DENIES ANY OTHER NEEDS AT THIS TIME. BED IN LOWEST POSITION, CALL LIGHT IN REACH
--- NOTE | 2019-05-02 19:49 | NUR ---
MEDICATED WITH PRN ZOFRAN FOR C/O NAUSEA, WILL MONITOR
[2019-05-02 20:00] VITALS: BP 118/59
[2019-05-03] VITALS: BP 123/58
--- NOTE | 2019-05-03 02:00 | NUR ---
PATIENT RESTING IN BED WITH NO S/S OF DISTRESS. BED IN LOWEST POSITION, CALL LIGHT IN REACH
[2019-05-03 05:43] LABS: INTERNATIONAL NORM RATIO 3.6 (2.0-3.5)
[2019-05-03 05:48] LABS: CREATININE 5.27 mg/dL (0.70-1.30); POTASSIUM 3.7 mmol/L (3.5-5.1)
--- NOTE | 2019-05-03 08:39 | NUR ---
Awake and alert. No c/o
--- NOTE | 2019-05-03 08:40 | NUR ---
Declines flu shot, stating and he get them together at their PCP office.
[2019-05-03 12:00] VITALS: BP 130/79
--- NOTE | 2019-05-03 15:59 | NUR ---
Requested Zofran, Given, also request IV be removed. IV to outer aspect of FATOU removed.
[2019-05-03 16:00] VITALS: BP 116/58
--- NOTE | 2019-05-03 19:51 | NUR ---
PATIENT LAYING IN BED RECEIVING A BREATHING TREATMENT. PATIENT IN [employer]ITS AND STATING THE PAIN IN HIS LEG IS ONLY 2/10. NO DISTRESS NOTED. CALL LIGHT WITHIN REACH.
[2019-05-03 20:00] VITALS: BP 116/63
--- NOTE | 2019-05-03 23:45 | NUR ---
NOTIFIED DR. WEST OF PATIENT'S TEMP OF 101.4, HR 100-110, BP 154/80, THAT HE STATED HE JUST DIDN'T FEEL WELL AND SEEMED SHORT OF BREATH. RESPIRATORY CALLED TO GIVE A BREATHING TREATMENT. DR. WEST STATED TO PUT IN AN ORDER OF BLOOD CULTURES AND A CHEST XRAY FOR 9/30 AM.
[2019-05-04] VITALS: BP 154/80
[2019-05-04 01:07] VITALS: BP 133/72
--- NOTE | 2019-05-04 02:18 | NUR ---
24 HR chart check completed.
[2019-05-04 03:30] VITALS: BP 128/61
--- NOTE | 2019-05-04 03:41 | NUR ---
PATIENT MEDICATED WITH PRN TYLENOL FOR C/O GENERALIZED DISCOMFORT. WILL CONTINUE TO MONITOR FOR EFFECTIVENESS.
--- NOTE | 2019-05-04 04:20 | NUR ---
PATIENT ASLEEP IN BED. PRN TYLENOL EFFECTIVE.
[2019-05-04 07:01] LABS: INTERNATIONAL NORM RATIO 3.3 (2.0-3.5)
[2019-05-04 08:00] VITALS: BP 116/62
--- NOTE | 2019-05-04 08:37 | NUR ---
OT NOTE Attempted to see pt this A.M. for OT session and upon arrival pt was being transferred to dialysis. Will check back at a later time and continue with POC as indicated. STEVEN Hurst/Raheem
--- NOTE | 2019-05-04 08:38 | NUR ---
PHYSICAL THERAPY Pt getting ready to head to dialysis upon arrival this A.M. will attempt again at a later time/date. Linda Priest PTA
--- NOTE | 2019-05-04 12:19 | NUR ---
DR.JOSEPH CADET OF PTS C/O PF PAIN IN LEFT CALF, PRN TYLENOL GIVEN FOR PAIN
--- NOTE | 2019-05-04 13:13 | NUR ---
REPORT RECIEVED FROM DIALYSIS NURSE. EPOGEN [id number] GIVEN. 1.5 KILO REMOVED TODAY.
--- NOTE | 2019-05-04 14:20 | NUR ---
PHYSICAL THERAPY PT OUT OF ROOM ON AND 3RD ATTEMP TO SEE PT. PHYSICAL THERAPY WILL TRY AGAIN AT A LATER TIME/DATE. AGUILAR BRITT PTA
--- NOTE | 2019-05-04 14:25 | NUR ---
OT NOTE Attempted to see pt this P.M. for OT session and upon arrival pt was out of the room for a medical test. Will check back at a later time/date and continue with POC as indicated. STEVEN Hurst/Raheem
[2019-05-04 16:00] VITALS: BP 106/56; BP 95/43
--- NOTE | 2019-05-04 17:15 | NUR ---
PT NOT MEDICALLY STABLE FOR DISCHARGE. WILL CONTINUE TO FOLLOW. WILL NEED AUTH TO GO TO [facility].
--- NOTE | 2019-05-04 19:50 | NUR ---
Patient resting in bed quietly. Respirations easy and regular. Call light within reach.
[2019-05-04 20:00] VITALS: BP 105/51
--- NOTE | 2019-05-04 20:34 | NUR ---
NOTIFIED RESIDENT PRICING CLERK OF PATIENT'S BLOOD PRESSURE OF 105/51 WITH A PULSE OF 85. CARDIZEM AND METOPROLOL ORDER. RESIDENT PRICING CLERK STATED TO HOLD BOTH FOR TONIGHT.
--- NOTE | 2019-05-04 23:30 | NUR ---
Patient watching TV in bed. IV Zosyn infusing per order. No complaints of pain. Call light within reach.
[2019-05-05] VITALS: BP 105/49
--- NOTE | 2019-05-05 00:12 | NUR ---
24 HR chart check completed.
[2019-05-05 04:00] VITALS: BP 105/51
--- NOTE | 2019-05-05 04:36 | NUR ---
HOLD 0[facility] PER DR. ROBERT D/T BP 105/51 WITH HR 80.
--- NOTE | 2019-05-05 06:29 | NUR ---
MINNIEBRENDAN [id number] Please refer to the physician's history and physical for past medical history, comorbid conditions, and allergies. Diagnosis: FRACTURE OF DISTAL END OF RT TIBIA FALL Taiwo Score: 15,AT RISK WOUND DESCRIPTIONS: Patient had dressing intact to right lower extremity. Patient has abrasion noted to left knee at time of assessment. No drainage noted at time of assessment. Unable to visualize right knee due to surgical dressing intact. Wound Number:4 Skin intact at time of assesment. No drainage at time of assessment. No open areas at time of assessment. Wound Number: 5 Location of the wound: left lower extremity Thickness: Full Size: 0.2cm x 0.3cm x 0.1cm Tunneling: none Undermining: none Sinus Tract: none Presence of Exudate: none Amount: none Color: Brown, yellow Odor: None Periwound Skin Appearance: Erythema Wound edges: approximated Pain (associated with wound): none at time of assessment How does patient state this happened? pt is unsure of how this happened but noticed this area yesterday. Surface the patient is resting on: Isoflex SKIN PREVENTION RECOMMENDATION: 1. Pressure redistribution support surface as appropriate 2. Elevate heels 3. Remove boots/TEDS every shift and reapply 4. Head of bed 30 degrees as tolerated 5. Assess nutrition and hydration 6. Manage moisture 7. Avoid the use of containment devices while in bed 8. Use absorptive products on surfaces limit layers of linens on bed 9. Turn and reposition every 1-2 hours in bed and every 1 hour in chair as tolerated 10. Weight shifts every 15 minutes while up in chair 11. Offloading with pillows or device to keep heels elevated off bed 12. Monitor skin at least every shift 13. Inspect under medical devices twice a day WOUND TREATMENT RECOMMENDATIONS: Continue full thickness guidelines. D/C skin tear guidelines to left hand.
[2019-05-05 07:03] LABS: HEMATOCRIT 27.3 % (42.0-52.0); HEMOGLOBIN 8.4 g/dl (14.0-18.0); MEAN CELL VOLUME 103.4 fl (80.0-94.0); MEAN CORPUSCULAR HGB 31.8 pg (27.0-31.0); MEAN CORPUSCULAR HGB CONC 30.8 g/dl (33.0-37.0); MEAN PLATELET VOLUME 9.6 fl (9.6-12.3); PLATELET COUNT AUTOMATED 116 10*3/uL (130-400); RED BLOOD COUNT 2.64 10*6/uL (4.50-5.90); RED CELL DISTRI WIDTH 19.4 % (0-14.5); WHITE BLOOD COUNT 4.9 10*3/uL (4.8-10.8)
[2019-05-05 07:24] LABS: ALBUMIN 2.2 gm/dl (3.1-4.5); BUN 26 mg/dl (7-24); CHLORIDE 100 mmol/L (98-107); SODIUM 132 mmol/L (136-145)
[2019-05-05 07:28] LABS: ALKALINE PHOSPHATASE 113 U/L (45-117); CREATININE 4.76 mg/dL (0.70-1.30); SGOT/AST 18 IU/L (3-35); SGPT/ALT < 6 U/L (12-78); TOTAL PROTEIN 6.4 gm/dL (6.4-8.2)
--- NOTE | 2019-05-05 07:47 | NUR ---
Nallely ALLISON notified of wound care recommendations.
[2019-05-05 07:58] LABS: INTERNATIONAL NORM RATIO 3.6 (2.0-3.5)
[2019-05-05 08:00] VITALS: BP 101/51
[2019-05-05 08:36] LABS: BASOPHILS 3 % (0-1); PLATELET SUFFICIENCY LOW (NORMAL); POLYCHROMASIA SLIGHT; TOTAL CELLS COUNTED 100 #CELLS
--- NOTE | 2019-05-05 10:37 | NUR ---
Faxed updated clinicals and therapy notes for auth. waiting to hear from [facility]/Pending [facility] To [facility].
--- NOTE | 2019-05-05 10:46 | NUR ---
OT NOTE Attempted to see pt this A.M. for OT session and upon arrival pt declined treatment at this time. Stating "I am not getting up, I am not doing anything, my pain is a 5/10 in my R knee, and I am just going to lay here." Pt was left supine in bed with call light in hand, tray table in place, and bed alarm activated for safety. Will check back at a later time/date and continue with POC as able. STEVEN Hurst/Raheem
--- NOTE | 2019-05-05 11:22 | NUR ---
PHYSICAL THERAPY Patient was approached for PT session this AM and patient declined therapy due to having R Knee pain. Will check back with patient after lunch. AUTOMATION QTP TESTER MEHDI BLANK WAS INFORMED OF patient, Angel Haynes declining therapy due to R knee pain. Patient is presently being treated for lung infection with anti-biotics. PACO RAMÍREZ BRAKE PRESS OPERATOR
[2019-05-05 12:00] VITALS: BP 109/56
--- NOTE | 2019-05-05 12:38 | NUR ---
[facility] stating insurance has denied auth for snf placement at this time; Patient is not medically stable for snf.
--- NOTE | 2019-05-05 13:36 | NUR ---
OT NOTE Pt was seen this P.M. 1:1 for 20 minute OT session. Upon arrival pt was supine in bed. Pt identified by name and and had complaints of "4/10 R knee pain." Pt presented to therapy with continuous 3L-O2 via NC which he remained on throughout entire session. Pt transferred supine to sit EOB with Martina and use of overhead trapeze bar. Sit to stand completed from bed level with Martina and use of w/w for UE support. FUnctional mobility then completed to the bathroom and back with CGA and use of w/w. Pt required a seated rest break after aprox 2 minutes due to fatigue. Pt was left sitting upright in the recliner with call light in hand, tray table in place, and body alarm activated for safety. Continue with rec D/C plan to SNF. JENNIFER Hurst
--- NOTE | 2019-05-05 13:50 | NUR ---
PHYSICAL THERAPY Patient presented to therapy in supine in bed with head of bed elevated and on 3 liters of spO2 via nasal canula. Patient was identified by name and on wristband. Patient gives informed consent for treatment. Patient performed supine to sitting at EOB with SBA. Patient sat on EOB unassisted. Patient performed sit to stand transfer with MIN A X 2 from EOB. Patient performed stand pivot transfer to bedside chair using Wh Walker with CGA X 2. Patient was wheeled out into hallway in rolling bedside chair. Patient sit to stand from low chair to Wh Walker with MIN A X 2. Patient ambulated with Wh Walker and CGA X 1 with rolling chair follow for 60' x 1 the first ambulation. Patient sat into chair at end of 60' x 1 with CGA X 2. Patient sit to stand again from low rolling chair with MIN A X 2 with verbal cues for pushing off of the armrests with hands. Patient ambulated the second time with Wh Walker and CGA X 2 WITH ROLLING CHAIR FOLLOW for another 30' x 1. Patient had no LOB and only mild SOB with both ambulation distances. Patient had IV and pole infusing and 3 liters of spO2 VIA NASAL CANULA. Patient was left in bedside chair with call light within reach, chair alarm tested and attached, and tray table near patient. Patient was 1:1 with this DIRECTOR ECONOMIC for 19 minutes total. PACO RAMÍREZ DIRECTOR ECONOMIC
--- NOTE | 2019-05-05 15:14 | NUR ---
PHYSICAL THERAPY CO-SIGN I approve of the Physical Therapy notes written above. PEDRO MARIA PT, DPT
[2019-05-05 16:00] VITALS: BP 106/36
--- NOTE | 2019-05-05 19:45 | NUR ---
PATIENT RESTING IN BED QUIETLY. RESPIRATIONS EASY AND UNLABORED. CALL LIGHT WITHIN REACH.
[2019-05-05 20:00] VITALS: BP 104/55
[2019-05-06] VITALS: BP 106/52
[2019-05-06 06:39] LABS: INTERNATIONAL NORM RATIO 4.2 (2.0-3.5)
--- NOTE | 2019-05-06 07:25 | NUR ---
ARRIVED ON SHIFT, PATIENT IN DIALYSIS, REPORT RECEIVED, UPDATED WHITE BOARD.
--- NOTE | 2019-05-06 08:02 | NUR ---
Shift chart check completed.
--- NOTE | 2019-05-06 08:04 | NUR ---
OT NOTE Attempted to see pt this A.M. for OT session and upon arrival pt was out of the room for dialysis. Will check back at a later time/date and continue with POC as able. STEVEN Hurst/Raheem
--- NOTE | 2019-05-06 08:10 | NUR ---
PHYSICAL THERAPY Patient was out of his room in dialysis this am when approached for therapy. Will continue this pm as able per POC. Ronald Steinberg, POWDER NIPPER
[2019-05-06 12:00] VITALS: BP 100/60
--- NOTE | 2019-05-06 14:10 | NUR ---
PHYSICAL THERAPY Patient seen this pm 1:1 for therapy visit and was sitting up on EOB folloiwng lunch, with his yamilet visiting upon Therapist arrival. Patient identified by name / and reports feeling weak / exhausted following am dialysis treatment. Patient presents with continuos O2 / IV treatment and transfers sit to stand Min/MOD A. Patient completed SPT to BSC with use of wh walker, Min/CGA, receiving v/c for improved upright posture and safe step sequnce. Patient completed second sit to stand and SPT from BSC to bedside chair, MIN A from low chair surface, demonstrating increased fatigue and remained in bedside chair with call light, tray table and cell phone. Will continue per POC as tolerated, total treatment time 14 minutes. Ronald Steinberg, TOLL LINE MECHANIC
--- NOTE | 2019-05-06 14:20 | NUR ---
OT NOTE Pt was seen this P.M. 1:1 for 20 minute OT session. Upon arrival pt was sitting upright on the EOB. Pt identified by name and and had complaints of "2-3/10 RLE pain." Pt presented to therapy with continuous 2L-O2 via NC which he remained on throughout the entire session. Pt completed sit to stand from bed level with Martina and use of w/w for UE support. Functional mobility completed to the bedside commode with CGA and use of w/w. Clothing management completed with modA and toilet hygiene completed with maxA. Stand pivot then completed from bedside commode to the recliner with Martina and use of w/w due to increased fatigue. Pt was left sitting upright in the recliner with call light in hand, tray table in place, and body alarm activated for safety. Continue with rec D/C plan to SNF. STEVEN Hurst/Raheem
[2019-05-06 16:00] VITALS: BP 98/57
[2019-05-06 20:00] VITALS: BP 120/54
[2019-05-07] VITALS: BP 112/54
--- NOTE | 2019-05-07 04:00 | NUR ---
PATIENT RESTING IN BED, NO SIGNS OF DISTRESS. RESPIRATIONS EASY, NON LABORED. BED IN LOWEST POSITION CALL LIGHT WITHIN REACH. WILL CHECK EFFECTIVENESS.
[2019-05-07 06:42] LABS: HEMATOCRIT 26.5 % (42.0-52.0); MEAN CELL VOLUME 105.2 fl (80.0-94.0); MEAN CORPUSCULAR HGB 31.7 pg (27.0-31.0); MEAN CORPUSCULAR HGB CONC 30.2 g/dl (33.0-37.0); MEAN PLATELET VOLUME 9.7 fl (9.6-12.3); PLATELET COUNT AUTOMATED 126 10*3/uL (130-400); RED BLOOD COUNT 2.52 10*6/uL (4.50-5.90); RED CELL DISTRI WIDTH 19.2 % (0-14.5); WHITE BLOOD COUNT 3.7 10*3/uL (4.8-10.8)
[2019-05-07 07:00] LABS: INTERNATIONAL NORM RATIO 4.2 (2.0-3.5)
[2019-05-07 07:05] LABS: ALBUMIN 2.3 gm/dl (3.1-4.5); CREATININE 4.37 mg/dL (0.70-1.30); TOTAL PROTEIN 6.5 gm/dL (6.4-8.2)
--- NOTE | 2019-05-07 07:05 | NUR ---
ARRIVED ON SHIFT, INTRODUCED TO PATIENT , BEDSIDE REPORT RECEIVED, NO NEEDS VOICED AT THIS TIME, WHITE BOARD UPDATED.
[2019-05-07 07:14] LABS: ATYPICAL LYMPHS 2 % (0-0); BASOPHILS 1 % (0-1); TOTAL CELLS COUNTED 100 #CELLS
[2019-05-07 07:15] LABS: OVALOCYTES FEW; PLATELET SUFFICIENCY LOW (NORMAL); SCHISTOCYTES FEW
[2019-05-07 07:24] LABS: POTASSIUM 3.6 mmol/L (3.5-5.1)
--- NOTE | 2019-05-07 07:25 | NUR ---
RECEIVED CALL FROM DR. FERRARI INQUIRING WHO PATIENTS HOSPITALIST WAS, IF PT HAD BEEN MADE MPO AND IF CONSULT WAS MADE FOR INFECTIOUS DISEASE. ADVISED DR. FERRARI THAT DR. CASIANO WAS HOSPITALIST AND THAT AT THIS TIME PATIENT WAS LEAH NPO AND NO CONSULT HAD BEEN DONE. SHE REQUESTED I CALL DR. CASIANO AND GET ID CONSULT AND NPO ORDER.I ADVISED HER ID TAKE CARE OF IT.
--- NOTE | 2019-05-07 07:30 | NUR ---
CALL PLACED TO HOSPITALIST LINE, SPOKE WITH DR. KAITY LEE RECEIVED FOR ID CONSULT WELL MAKING PATIENT NPO.
--- NOTE | 2019-05-07 08:03 | NUR ---
CALL PLACED TO DR. STARK OFFICE, SPOKE WITH SHERI ADVISED OF CONSULT FOR INFECTION RIGHT KNEE WITH ELEVATED WBC.
--- NOTE | 2019-05-07 08:30 | NUR ---
OT NOTE Pt was seen this A.M. 1:1 for 30 minute OT session. Upon arrival pt was supine in bed. Pt identified by name and and had complaints of "2/10 R knee pain." Pt presented to therapy with continuous 2L-O2 via NC which he remained on throughout the entire session. Pt transferred supine to sit EOB with SBA and use of bed rail for UE support. While sitting EOB pt doffed gown with SBA and donned underpants and shorts with modA. Pt required education on LB dressing technique due to limited R knee flexion, pt had good carry over throughout. Pt then donned shirt while sitting with SBA. Sit to stand completed from bed level with Martina X 2 and use of w/w for UE support. Stand pivot completed from EOB to the recliner with CGA and and use of w/w. Pt required a seated rest break after dressing task and transfer. Pt then completed functional mobility to the bathroom and back with CGA and use of w/w with one seated rest break. Pt's SpO2 throughout activity was 98%. Pt was left sitting upright in the recliner with call light in hand, tray table in place, and body alarm activated for safety. Pt was left with a resting SpO2 of 99%. Continue with rec D/C plan to SNF. STEVEN Hurst/Raheem
--- NOTE | 2019-05-07 08:39 | NUR ---
PHYSICAL THERAPY Patient presented to therapy supine in bed with head of bed elevated and report of no pain this morning. Patient does NOT have a boot for R LE and there is nothing in the PT note that mentions a boot for the R LE by the Evaluating Physical Therapist. Patient was identified by name and ON WRISTBAND. Patient gives informed consent for treatment. Patient performed supine to sitting at EOB transfer with SBA. Patient sat on EOB unassisted and no LOB. Patient performed sit to stand from EOB with MIN A X 1. Patient ambulated with Wh Walker for 4 ft. to bedside chair where he sat with CGA X 1 and verbal cues for putting hands back on armrests of chair. Patient is on 2 liters of spO2 via nasal canula. Patient rolled out into hallway in rolling bedside chair. Patient sit to stand out of bedside chair with MIN A X 2. Patient ambulated with Wh Walker and CGA X 2 for 60' x 2 and, then again for 40' x 1 all with CGA X 2. Patient required verbal cues for upright posture, pushing down on walker with hands, and locking bilateral knees into extension to prevent R KNEE BUCKLE. Patient sit to stands each time out of rolling low chair was with MIN A X 2. Patient O2 SATS were recorded as 98% and pulse 112 following ambulation. Patient's O2 SATS were then recorded again as 99% and pulse of 67 within 1 minute. Patient was left in bedside chair with call light within reach, chair alarm tested and attached to patient and O2 connected to wall outlet with 2 liters of O2. PATIENT DOES NOT HAVE A BOOT FOR THE R LE AND IT IS NOT MENTIONED IN THE EVALUATING PHYSICAL THERAPIST NOTE. Patient did NOT have any pain in the R LE DURING OR FOLLOWING AMBULATION. Patient was 1:1 with this ADVERTISING JOB TITLES for 25 minutes total. PACO RAMÍREZ ADVERTISING JOB TITLES
--- NOTE | 2019-05-07 09:05 | NUR ---
Shift chart check completed.
--- NOTE | 2019-05-07 10:09 | NUR ---
Updated clinicals/med list/therapy notes faxed to sherrie at [facility]. Precert started, should get auth for discharge today, will notify hospitalists office when auth is obtained.
--- NOTE | 2019-05-07 11:40 | NUR ---
Patient has received auth to go to [facility] and can go today if medically stable for discharge.
[2019-05-07 12:00] VITALS: BP 128/66
[2019-05-07] MEDS ORDERED: LEVOFLOXACIN500 MG PO (13:34)
[2019-05-07] MEDS ORDERED: Humalog SQ (13:34)
[2019-05-07] MEDS ORDERED: DILTIAZEM HCL60 MG PO (13:34)
--- NOTE | 2019-05-07 13:41 | NUR ---
Patient is discharged to [facility] via [facility] at 3:30 pm. NH, nursing/animal warden, patient and all notified.
--- NOTE | 2019-05-07 15:45 | NUR ---
LEFT VIA [facility]. Discharge instructions reviewed with patient/family. Patient receptive and verbalizes understanding. Follow-up care arranged. Written instructions given to patient/family. NURSE TO NURSE REPORT GIVEN TO LJ RN AT [facility], IV'S REMOVED LEFT ARM, TELEMETRY REMOVED. BEVERLY ALVA
--- NOTE | 2019-05-07 15:54 | NUR ---
PHYSICAL THERAPY CO-SIGN I approve of the Physical Therapy notes written above. PEDRO MARIA PT,DPT
--- NOTE | 2019-05-08 13:01 | NUR ---
OCCUPATIONAL THERAPY CO-SIGN I approve of the Occupational Therapy notes written above. LETTY PHOENIX OTR/Raheem
== END 2019-05-07 15:45 | disposition other institution (70) | DRG 492 ==
LOC: ED 10:18 → 4E 13:54 → EDHOLD 13:54 → 4E 14:03
PROVIDERS: Family Medicine; Internal Medicine; Internal Medicine Cardiovascular Disease; Nurse Practitioner Family; Orthopaedic Surgery; Registered Nurse; Student in an Organized Health Care Education/Training Program; ADMIT Internal Medicine
PROC: 5A1D70Z Performance of Urinary Filtration, Intermittent, Less than 6 Hours Per Day (ICD-10-PCS; 2019-04-13)
PROC: 5A1D70Z Performance of Urinary Filtration, Intermittent, Less than 6 Hours Per Day (ICD-10-PCS; 2019-04-15)
PROC: 5A1D70Z Performance of Urinary Filtration, Intermittent, Less than 6 Hours Per Day (ICD-10-PCS; 2019-04-17)
PROC: 30233N1 Transfusion of Nonautologous Red Blood Cells into Peripheral Vein, Percutaneous Approach (ICD-10-PCS; 2019-04-18)
PROC: 5A1D70Z Performance of Urinary Filtration, Intermittent, Less than 6 Hours Per Day (ICD-10-PCS; 2019-04-20)
PROC: 5A1D70Z Performance of Urinary Filtration, Intermittent, Less than 6 Hours Per Day (ICD-10-PCS; 2019-04-22)
PROC: 0QHG06Z Insertion of Intramedullary Internal Fixation Device into Right Tibia, Open Approach (ICD-10-PCS; principal; 2019-04-24)
PROC: 5A1D70Z Performance of Urinary Filtration, Intermittent, Less than 6 Hours Per Day (ICD-10-PCS; principal; 2019-04-24)
PROC: 5A1D70Z Performance of Urinary Filtration, Intermittent, Less than 6 Hours Per Day (ICD-10-PCS; 2019-04-29)
PROC: 5A1D70Z Performance of Urinary Filtration, Intermittent, Less than 6 Hours Per Day (ICD-10-PCS; 2019-05-01)
PROC: 5A1D70Z Performance of Urinary Filtration, Intermittent, Less than 6 Hours Per Day (ICD-10-PCS; 2019-05-04)
PROC: 5A1D70Z Performance of Urinary Filtration, Intermittent, Less than 6 Hours Per Day (ICD-10-PCS; 2019-05-06)
DX: S82.301A Unspecified fracture of lower end of right tibia, initial encounter for closed fracture (principal); N18.6 End stage renal disease; J15.6 Pneumonia due to other Gram-negative bacteria; A41.9 Sepsis, unspecified organism; I50.32 Chronic diastolic (congestive) heart failure; E44.1 Mild protein-calorie malnutrition; I13.2 Hypertensive heart and chronic kidney disease with heart failure and with stage 5 chronic kidney disease, or end stage renal disease; D61.818 Other pancytopenia; I47.2 Ventricular tachycardia; J44.0 Chronic obstructive pulmonary disease with (acute) lower respiratory infection; I25.10 Atherosclerotic heart disease of native coronary artery without angina pectoris; I48.0 Paroxysmal atrial fibrillation; I87.2 Venous insufficiency (chronic) (peripheral); R54 Age-related physical debility; M1A.9XX0 Chronic gout, unspecified, without tophus (tophi); K21.9 Gastro-esophageal reflux disease without esophagitis; E55.9 Vitamin D deficiency, unspecified; D53.9 Nutritional anemia, unspecified; E78.2 Mixed hyperlipidemia; S80.02XA Contusion of left knee, initial encounter; S80.01XA Contusion of right knee, initial encounter; E11.22 Type 2 diabetes mellitus with diabetic chronic kidney disease; E66.01 Morbid (severe) obesity due to excess calories; E03.9 Hypothyroidism, unspecified; E11.40 Type 2 diabetes mellitus with diabetic neuropathy, unspecified; E11.65 Type 2 diabetes mellitus with hyperglycemia; S80.812A Abrasion, left lower leg, initial encounter; S80.811A Abrasion, right lower leg, initial encounter; W18.39XA Other fall on same level, initial encounter; Y93.89 Activity, other specified; Y92.89 Other specified places as the place of occurrence of the external cause; Y99.8 Other external cause status; Z79.4 Long term (current) use of insulin; Z99.2 Dependence on renal dialysis; Z95.2 Presence of prosthetic heart valve; Z79.01 Long term (current) use of anticoagulants; Z88.8 Allergy status to other drugs, medicaments and biological substances; Z91.09 Other allergy status, other than to drugs and biological substances; Z90.49 Acquired absence of other specified parts of digestive tract; Z95.1 Presence of aortocoronary bypass graft; Z87.891 Personal history of nicotine dependence; Z80.42 Family history of malignant neoplasm of prostate; Z82.49 Family history of ischemic heart disease and other diseases of the circulatory system; Z83.3 Family history of diabetes mellitus; Z84.89 Family history of other specified conditions; Z79.899 Other long term (current) drug therapy

== ENCOUNTER → 2019-05-28 | Outpatient (CLI) | payer OTHER ==
[~2019-05-28] MED LIST changes: +COUMADIN6 M2 PO; +DILTIAZEM HCL60 MG PO; +Humalog SQ; +LEVOFLOXACIN500 MG PO
== END | disposition home or self-care (01) ==
LOC: RAD 01:08
DX: S82.391D Other fracture of lower end of right tibia, subsequent encounter for closed fracture with routine healing (principal); X58.XXXD Exposure to other specified factors, subsequent encounter

== ENCOUNTER → 2019-06-25 | Outpatient (CLI) | payer OTHER | END | disposition home or self-care (01) | LOC: ORTHO 00:14 | DX: S82.391D Other fracture of lower end of right tibia, subsequent encounter for closed fracture with routine healing (principal); X58.XXXD Exposure to other specified factors, subsequent encounter ==

== ENCOUNTER → 2019-07-24 | Outpatient (CLI) | payer OTHER | END | disposition home or self-care (01) | LOC: ORTHO 00:32 | DX: S82.201G Unspecified fracture of shaft of right tibia, subsequent encounter for closed fracture with delayed healing (principal); X58.XXXD Exposure to other specified factors, subsequent encounter ==

== ENCOUNTER → 2019-08-20 | Outpatient (CLI) | payer OTHER | END | disposition home or self-care (01) | LOC: ORTHO 01:07 | DX: S82.391D Other fracture of lower end of right tibia, subsequent encounter for closed fracture with routine healing (principal); X58.XXXD Exposure to other specified factors, subsequent encounter ==

== ENCOUNTER 2019-10-22 14:48 | Emergency (ER) | payer OTHER ==
[~2019-10-22] VITALS: Wt 116.6 kg
[2019-10-22 15:24] LABS: BASO % 0.3 % (0.0-1.0); EOS % 0.3 % (1.0-4.0); HEMATOCRIT 33.1 % (42.0-52.0); HEMOGLOBIN 10.7 g/dl (14.0-18.0); LYMPH # 0.4 10*3/uL (1.3-4.4); LYMPH % 3.7 % (27.0-41.0); MEAN CELL VOLUME 105.1 fl (80.0-94.0); MEAN CORPUSCULAR HGB CONC 32.3 g/dl (33.0-37.0); MEAN PLATELET VOLUME 9.8 fl (9.6-12.3); MONO # 0.7 10*3/uL (0.1-1.0); MONO % 6.8 % (3.0-9.0); NEUT # 8.9 10*3/uL (2.3-7.9); NEUT % 87.8 % (47.0-73.0); PLATELET COUNT AUTOMATED 163 10*3/uL (130-400); RED BLOOD COUNT 3.15 10*6/uL (4.50-5.90); WHITE BLOOD COUNT 10.1 10*3/uL (4.8-10.8)
[2019-10-22 15:36] LABS: ACT PARTIAL THROMBO TIME 51.5 SECONDS (20.0-32.1); INTERNATIONAL NORM RATIO 3.2 (2.0-3.5)
[2019-10-22 15:37] LABS: ALBUMIN 3.2 gm/dl (3.1-4.5); CREATININE 6.84 mg/dL (0.70-1.30); POTASSIUM 5.4 mmol/L (3.5-5.1); TOTAL PROTEIN 8.4 gm/dL (6.4-8.2)
[2019-10-22 18:05] VITALS: BP 125/58
[2019-10-22 18:11] LABS: CPK 893 U/L (39-308); TROPONIN I < 0.015 ng/ml (<0.045)
[2019-10-28 15:04] LABS: ANAEROBE RESULT 1 Clostridium septicum (.)
== END 2019-10-22 18:17 | disposition short-term general hospital (02) ==
LOC: ED 14:48
PROVIDERS: Emergency Medicine
DX: I74.3 Embolism and thrombosis of arteries of the lower extremities (principal); M72.6 Necrotizing fasciitis; I48.91 Unspecified atrial fibrillation; I25.10 Atherosclerotic heart disease of native coronary artery without angina pectoris; J44.9 Chronic obstructive pulmonary disease, unspecified; E11.43 Type 2 diabetes mellitus with diabetic autonomic (poly)neuropathy; K21.9 Gastro-esophageal reflux disease without esophagitis; M10.9 Gout, unspecified; E66.01 Morbid (severe) obesity due to excess calories; I13.2 Hypertensive heart and chronic kidney disease with heart failure and with stage 5 chronic kidney disease, or end stage renal disease; E11.22 Type 2 diabetes mellitus with diabetic chronic kidney disease; N18.6 End stage renal disease; I50.32 Chronic diastolic (congestive) heart failure; Z88.8 Allergy status to other drugs, medicaments and biological substances; Z79.899 Other long term (current) drug therapy; Z79.4 Long term (current) use of insulin; Z68.42 Body mass index [BMI] 45.0-49.9, adult